=== PATIENT | male | born 1975 | race African-American/Black ===

== ENCOUNTER 2017-03-13 12:54 | Emergency (ER) | payer MEDICAID ==
[2017-03-13 12:59] VITALS: BP 147/81
[2017-03-13] MEDS ORDERED: OXYCODONE-ACETAMINOPHEN 5-325 MG TABLET PO ONE (13:45)
[2017-03-13] MEDS ORDERED: PREDNISONE 20 MG TABLET PO ONE (13:45)
--- NOTE | 2017-03-13 13:50 | ER Document Report ---
HPI - HPI Patient complains to provider of: neck pain Onset: Other - 2 days Onset/Duration: Persistent Quality of pain: Sharp Pain Level: 5 Context: Patient reports a history of chronic cervical radiculopathy. Patient states that he has had a flareup of his chronic right-sided neck pain that goes into the right shoulder area for the past 2 days. Patient denies any new injury. Patient states pain is typical of flare up states that in the past. 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 Associated Symptoms: Other - right side neck pain. denies: Fever, Headache Exacerbated by: Movement Relieved by: Denies Similar symptoms previously: Yes Recently seen / treated by doctor: No - ROS ROS below otherwise negative: Yes Systems Reviewed and Negative: Yes All other systems reviewed and negative - CONSTITUTIONAL Constitutional: DENIES: Fever - NEURO Neurology: DENIES: Headache, Weakness - GASTROINTESTINAL Gastrointestinal: DENIES: Nausea - MUSCULOSKELETAL Musculoskeletal: REPORTS: Back Pain, Neck Pain. DENIES: Extremity pain - DERM Skin Color: Normal Skin Problems: None Past Medical History - General Information source: Patient - Social History Smoking Status: Never Smoker Frequency of alcohol use: None Drug Abuse: None Occupation: [employer] Lives with: Family Family History: Reviewed & Not Pertinent Patient has suicidal ideation: No Patient has homicidal ideation: No - Past Medical History Cardiac Medical History: Reports: Hx Heart Attack - 2010, Hx Hypercholesterolemia, Hx Hypertension Renal/ Medical History: Denies: Hx Peritoneal Dialysis Musculoskeltal Medical History: Reports Hx Arthritis, Reports Other - herniated disc in cervical spine Past Surgical History: Reports: Hx Cardiac Catheterization, Hx Orthopedic Surgery - RIGHT WRIST - Immunizations Immunizations up to date: Yes Hx Diphtheria, Pertussis, Tetanus Vaccination: Yes Vertical Provider Document - CONSTITUTIONAL Agree With Documented VS: Yes Exam Limitations: No Limitations General Appearance: WD/WN, No Apparent Distress - INFECTION CONTROL TRAVEL OUTSIDE OF THE [place] IN LAST 30 DAYS: No - HEENT HEENT: Atraumatic, Normocephalic - NECK Neck: Supple, Other - Patient with right posterior paracervical tenderness, no midline tenderness, step-off or deformity. Patient with tenderness overlying the right trapezius muscle.. negative: Lymphadenopathy-Left, Lymphadenopathy- Right - RESPIRATORY Respiratory: Breath Sounds Normal, No Respiratory Distress O2 Sat by Pulse Oximetry: 97 - CARDIOVASCULAR Cardiovascular: Regular Rate, Regular Rhythm, No Murmur - MUSCULOSKELETAL/EXTREMETIES Musculoskeletal/Extremeties: IDALIA PACE - NEURO Level of Consciousness: Awake, Alert, Appropriate Motor/Sensory: No Motor Deficit, No Sensory Deficit Notes: pt With normal strength and muscle tone to bilateral upper extremities - DERM Integumentary: Warm, Dry, No Rash Course - Re-evaluation Re-evalutation: 03/13/17 13:46 The patient has been informed that they may have pre-hypertension or hypertension based on a blood pressure reading in the emergency department. I recommend that patient call the primary care provider listed on their discharge instructions or a physician of their choice by this week to arrange follow-up for further evaluation of possible pre-hypertension her hypertension. - Vital Signs Vital signs: Temp Pulse Resp BP Pulse Ox 98.4 F 62 16 147/81 H 97 03/13/17 12:56 03/13/17 12:56 03/13/17 12:56 03/13/17 12:56 03/13/17 12:56 Discharge - Discharge Clinical Impression: Elevated blood pressure reading, Cervical radicular pain Condition: Stable Disposition: HOME, SELF-CARE Instructions: Radiculopathy ([facility]), Oral Narcotic Medication ([facility]), Steroid Medication Additional Instructions: Return immediately for any new or worsening symptoms Followup with your primary care provider, call tomorrow to make a followup appointment Your blood pressure was mildly elevated today, recheck with your primary doctor to have this reevaluated Prescriptions: Oxycodone HCl/Acetaminophen [Percocet 5-325 mg Tablet] 1 - 2 tab PO ASDIR PRN # 15 tablet PRN Reason: Prednisone [Deltasone 20 mg Tablet] 3 tab PO DAILY 5 Days Forms: Elevated Blood Pressure Referrals: BENJI MIRANDA MD [Primary Care Provider] - Follow up tomorrow
== END 2017-03-13 14:23 | disposition home or self-care (01) ==
LOC: ER 12:54
DX: M54.12 Radiculopathy, cervical region (principal); M54.2 Cervicalgia; G89.29 Other chronic pain; I25.2 Old myocardial infarction; I10 Essential (primary) hypertension; M54.9 Dorsalgia, unspecified
CPT/HCPCS: 99283; J7512

== ENCOUNTER 2017-03-23 15:58 | Emergency (ER) | payer MEDICAID ==
--- NOTE | 2017-03-23 17:11 | ER Document Report ---
HPI - HPI Patient complains to provider of: neck pain Pain Level: 5 Context: pt is 41 yo male with hx/o chronic cervical radiculopathy presents to ED today c /o increased pain x several days. no new injury, typical flare for patient. 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 Associated Symptoms: None Exacerbated by: Movement Relieved by: Denies - ROS Systems Reviewed and Negative: Yes All other systems reviewed and negative - CARDIOVASCULAR Cardiovascular: DENIES: Chest pain - DERM Skin Color: Normal Past Medical History - General Information source: Patient - Social History Smoking Status: Unknown if Ever Smoked Chew tobacco use (# tins/day): No Frequency of alcohol use: None Drug Abuse: None Lives with: Family Family History: Reviewed & Not Pertinent Patient has suicidal ideation: No Patient has homicidal ideation: No - Past Medical History Cardiac Medical History: Reports: Hx Heart Attack - 2010, Hx Hypercholesterolemia, Hx Hypertension Renal/ Medical History: Denies: Hx Peritoneal Dialysis Musculoskeltal Medical History: Reports Hx Arthritis Past Surgical History: Reports: Hx Cardiac Catheterization, Hx Orthopedic Surgery - RIGHT WRIST - Immunizations Immunizations up to date: Yes Hx Diphtheria, Pertussis, Tetanus Vaccination: Yes Vertical Provider Document - CONSTITUTIONAL Agree With Documented VS: Yes General Appearance: WD/WN - INFECTION CONTROL TRAVEL OUTSIDE OF THE [place] IN LAST 30 DAYS: No - HEENT HEENT: Atraumatic, PERRLA - NECK Neck: Other - + tenderness over C5-6 area. + radicular pain to right elbow - RESPIRATORY Respiratory: Breath Sounds Normal, No Respiratory Distress O2 Sat by Pulse Oximetry: 94 - CARDIOVASCULAR Cardiovascular: Regular Rate, Regular Rhythm - NEURO Level of Consciousness: Awake, Alert Course - Vital Signs Vital signs: Temp Pulse Resp BP Pulse Ox 98.3 F 85 18 141/78 H 94 03/23/17 16:16 03/23/17 16:16 03/23/17 16:16 03/23/17 16:16 03/23/17 16:16 Discharge - Discharge Clinical Impression: Cervical radicular pain, Elevated blood pressure reading Condition: Stable Disposition: HOME, SELF-CARE Instructions: Oral Narcotic Medication ([facility]), Steroid Medication Additional Instructions: Take medications as prescribed Follow up with your primary care provider for further evaluation and treatment Your blood pressure is elevated Please keep blood pressure diary and follow up with your primary care Prescriptions: Oxycodone HCl/Acetaminophen [Percocet 5-325 mg Tablet] 1 - 2 tab PO ASDIR PRN # 25 tablet PRN Reason: Prednisone [Deltasone 10 mg Tablet] 10 mg PO ASDIR PRN #21 tablet PRN Reason: Forms: Elevated Blood Pressure
[2017-03-23 17:28] VITALS: BP 126/80
== END 2017-03-23 17:23 | disposition home or self-care (01) ==
LOC: ER 15:58
DX: M54.12 Radiculopathy, cervical region (principal); R03.0 Elevated blood-pressure reading, without diagnosis of hypertension; G89.29 Other chronic pain; I25.2 Old myocardial infarction; E78.00 Pure hypercholesterolemia, unspecified
CPT/HCPCS: 99283

== ENCOUNTER 2017-07-10 12:02 | Emergency (ER) | payer MEDICAID ==
[2017-07-10 12:08] VITALS: BP 138/83
== END 2017-07-10 14:01 | disposition left against medical advice (07) ==
LOC: ER 12:02
DX: Z53.21 Procedure and treatment not carried out due to patient leaving prior to being seen by health care provider (principal)

== ENCOUNTER 2017-07-25 17:29 | Emergency (ER) | payer MEDICAID ==
[2017-07-25] MEDS ORDERED: DEXAMETHASONE SOD PHOS INJ 10 MG/1 ML VIAL IM ONE (18:33)
[2017-07-25] MEDS ORDERED: KETOROLAC TROMETHAMINE 60 MG/2 ML SDV IM ONE (18:33)
--- NOTE | 2017-07-25 18:46 | ER Document Report ---
ED Neck/Back Problem - General Chief Complaint: Neck Pain >24hrs old Stated Complaint: NECK/SHOULDER PAIN Time Seen by Provider: 07/25/17 17:58 Mode of Arrival: Ambulatory Information source: Patient Notes: 42-year-old male presents to ED for complaint of chronic neck and shoulder pain. He states that he has an old injury and has been told that he needed neck surgery for bulging disc but has not been able to afford to take off to have the surgery done. He states that he has been in here several times for this pain. He states he has a primary doctor but he has no insurance and now he has gotten Medicaid but still cannot afford to take off work. TRAVEL OUTSIDE OF THE [place] IN LAST 30 DAYS: No - HPI Patient complains to provider of: Pain, Neck, Upper back Onset: Other - Chronic with increase in pain on Tuesday Onset: Chronic Timing: Still present, Worse Quality of pain: Achy, Sharp Severity: Moderate Pain Level: 4 Recent injury: No Associated symptoms: Like prior neck/back pain, Numbness/tingling, Radiation to arm, Radiation to chest, Upper back pain. denies: Radiation to leg, Sensory loss, Unable to urinate Exacerbated by: Movement of neck Relieved by: Remaining still Similar symptoms previously: Yes Recently seen / treated by doctor: No - Related Data Allergies/Adverse Reactions: No Known Drug Allergies Allergy (Verified 07/25/17 17:43) Past Medical History - General Information source: Patient - Social History Smoking Status: Former Smoker Cigarette use (# per day): No Chew tobacco use (# tins/day): No Smoking Education Provided: No Frequency of alcohol use: None Drug Abuse: None Lives with: Family Family History: Arthritis, CAD, CVA, DM, Hyperlipidemia, Hypertension, Malignancy, Thyroid Disfunction Patient has suicidal ideation: No Patient has homicidal ideation: No - Past Medical History Cardiac Medical History: Reports: Hx Heart Attack - 2011, Hx Hypercholesterolemia, Hx Hypertension Pulmonary Medical History: Reports: None Neurological Medical History: Reports: None Endocrine Medical History: Reports: None Renal/ Medical History: Reports: None Malignancy Medical History: Reports None GI Medical History: Reports: None Musculoskeltal Medical History: Reports Hx Arthritis, Reports Hx Musculoskeletal Deformity, Reports Hx Musculoskeletal Trauma Skin Medical History: Reports None Psychiatric Medical History: Reports: None Traumatic Medical History: Reports: None Infectious Medical History: Reports: None Past Surgical History: Reports: Hx Cardiac Catheterization, Hx Orthopedic Surgery - RIGHT WRIST - Immunizations Immunizations up to date: Yes Hx Diphtheria, Pertussis, Tetanus Vaccination: Yes Review of Systems - Review of Systems Constitutional: No symptoms reported EENT: No symptoms reported Cardiovascular: No symptoms reported Respiratory: No symptoms reported Gastrointestinal: No symptoms reported Genitourinary: No symptoms reported Male Genitourinary: No symptoms reported Musculoskeletal: No symptoms reported Skin: No symptoms reported Hematologic/Lymphatic: No symptoms reported Neurological/Psychological: No symptoms reported -: Yes All other systems reviewed and negative Physical Exam - Vital signs Vitals: Temp Pulse Resp BP Pulse Ox 98.9 F 65 18 143/83 H 98 07/25/17 17:43 07/25/17 17:43 07/25/17 17:43 07/25/17 17:43 07/25/17 17:43 Interpretation: Normal - General General appearance: Appears well, Alert - HEENT Head: Normocephalic, Atraumatic Eyes: Normal Pupils: PERRL - Respiratory Respiratory status: No respiratory distress Chest status: Nontender Breath sounds: Normal Chest palpation: Normal - Cardiovascular Rhythm: Regular Heart sounds: Normal auscultation Murmur: No - Abdominal Inspection: Normal Distension: No distension Bowel sounds: Normal Tenderness: Nontender Organomegaly: No organomegaly - Back Back: Normal, Tender, Vertebra tenderness. No: Deformity/step-off, CVA tenderness, Scars, Scoliosis, Wounds - Extremities General upper extremity: Normal inspection, Nontender, Normal color, Normal ROM , Normal temperature General lower extremity: Normal inspection, Nontender, Normal color, Normal ROM , Normal temperature, Normal weight bearing. 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 He has had MRIs in the past and is been in instructed to have neck surgery which he refused due to him on ability to take off work with the surgery. Patient states that a lot of the times his neck is were it not painful but every once in a while he will do some. Mom picks him up and the pain will get severe. He states that this time it became severe on Tuesday and is been trying to wait until he can follow-up with his doctor. He states his primary doctor will not give him narcotics and the neck specialist will not see him until he agrees to do the surgery that he is needs. He states that he will call his primary doctor tomorrow to discuss pain management. I have informed him that the emergency room does not usually treat chronic pain with narcotics but I will give him a short prescription of Percocet 10 tablets 1 every 6 hours but that he needs to get a referral to pain management as we cannot continue to give him pain medicine. He was treated with Decadron and Toradol in the emergency room IM and instructed on use of ice and warm packs to help with his pain. - Vital Signs Vital signs: Temp Pulse Resp BP Pulse Ox 98.5 F 73 16 143/87 H 100 07/25/17 19:05 07/25/17 19:05 07/25/17 19:05 07/25/17 19:05 07/25/17 19:05 Discharge - Discharge Clinical Impression: Chronic neck and back pain Condition: Stable Disposition: HOME, SELF-CARE Additional Instructions: Chronic Back Pain Chronic back pain (pain persisting longer than three months) is a common problem. A medical evaluation can look for herniated disc, arthritis, osteoporosis, tumors, and infections. But at least half the time, there's no obvious treatable cause. Anxiety and depression tend to worsen back pain. Ibuprofen or other anti-inflammatory medicine can help. A heating pad, used for 15-20 minutes at a time, can ease pain. For this type of back pain, narcotic medicines should be avoided. Muscle relaxers are rarely helpful unless you're having spasms. Activity is important. Find an aerobic exercise program that your back can tolerate. Too much rest makes back pain worse. Specific back exercises are usually prescribed to strengthen the back and abdominal muscles. Often, a physical therapist can help. Avoid heavy lifting, working while bent over, or standing with both knees straight. Most back pain patients do better with a firm mattress. If new symptoms of a "herniated disc" (radiation of pain, numbness, or tingling down the back of the leg or weakness in the leg) occur, you should be re-examined. Chronic Pain Control Stress, inactivity, and depression make pain more severe regardless of the cause of the pain. Stress and poor physical condition can cause pain such as headaches and backache. Relaxation: Rest in a quiet place with your eyes closed for 20 minutes twice daily. Concentrate on a pleasant image, or simply "feel" your breathing. Clear your mind. Stress management: Deal with your "stressors." Either take action, or eliminate the stressor from your life. Don't let things hang over you. Accept those things you can't change. Nutrition: Eat small, balanced meals -- don't skip, don't overeat. Meals should be high-carbohydrate, low-sugar, low-fat. Exercise: Exercise helps painful conditions and eases stress. Get 30 minutes of moderate exercise, five days a week. Do an activity that does not flare your pain. Precautions: Pain which continues to disrupt daily activities, or which changes in nature, requires a medical evaluation. Pain Clinic referral is available. We do not manage chronic pain in the Emergency Department. We will try to appropriately help you through an acute flare of your chronic painful condition , but for on-going chronic pain that does not improve, you will need to see your private doctor or painter helper spray. We do not provide repeated medication management of chronic painful conditions. If you wish, we can provide the name of local pain management physicians. Toradol Injection You have been given an injection of ketorolac tromethamine (Toradol). This is an excellent, safe drug for pain control. It also has potent antiinflammatory action. You should have significant pain relief within about one hour. Toradol is not addicting and is non-sedating. It does not interfere with driving or work. Call or return if you develop itching, hives, shortness of breath, or rash. STEROID MEDICATION: You have been given an injection of medicine of the cortisone/steroid class. This medication is used to control inflammation or allergy. It is often continued as a pill for a short period of time, until the acute process subsides. There are usually no side effects from short-term use of cortisone-like medications. Some persons feel an increased sense of well-being and are not sleepy at bedtime. Long-term use of cortisone medications is best avoided, unless required for a severe condition. If your condition does not remit, or relapses after the course of corticosteroid medication, you should consult your physician. ICE PACKS: Apply ice packs frequently against the painful area. Many different schedules are recommended, such as "20 minutes on, 20 minutes off" or "one hour ice, two hours rest." If you need to work, you may need to go longer between ice treatments. You should plan to have the area ice packed AT LEAST one fourth of the time. The ice should be applied over the wrap, tape, or splint, or over a layer of cloth -- not directly against the skin. Some ice bags have a built-in cloth and can be put directly on the skin. WARM PACKS: After approximately two days, apply gentle heat (such as a heating pad or hot water bottle) for about 20 to 30 minutes about every two hours -- at least four times daily. Warmth and elevation will help you make a more rapid recovery , and will ease the pain considerably. Do not use HOT heat, and never apply heat for longer than 30 minutes. The continuous heat can invisibly damage skin and muscles -- even when no burn is seen on the surface. Damaged muscles can make you MORE sore. ORAL NARCOTIC MEDICATION: You have been given a prescription for pain control. This medication is a narcotic. It's best taken with food, as nausea can result if taken on an empty stomach. Don't operate machinery or drive within six hours of taking this medication. Do not combine this medicine with alcohol, or with any medication which can cause sedation (such as cold tablets or sleeping pills) unless you get permission from the physician. Narcotics tend to cause constipation. If possible, drink plenty of fluids and eat a diet high in fiber and fruits. FOLLOW-UP CARE: If you have been referred to a physician for follow-up care, call the physician s office for an appointment as you were instructed or within the next two days. If you experience worsening or a significant change in your symptoms, notify the physician immediately or return to the Emergency Department at any time for re-evaluation. You need to follow-up with your primary doctor and get a referral to pain management until you can get definitive treatment to your neck. Prescriptions: Oxycodone HCl/Acetaminophen [Percocet 5-325 mg Tablet] 1 tab PO Q6HP PRN #10 tablet PRN Reason: Forms: Elevated Blood Pressure Referrals: [facility] [Provider Group] - Follow up as needed
[2017-07-25 19:06] VITALS: BP 143/87
== END 2017-07-25 19:05 | disposition home or self-care (01) ==
LOC: ER 17:29
DX: G89.29 Other chronic pain (principal); M54.2 Cervicalgia; M25.519 Pain in unspecified shoulder; I10 Essential (primary) hypertension; I25.2 Old myocardial infarction; Z87.891 Personal history of nicotine dependence
CPT/HCPCS: 99283; 96372; J1885; J1100

== ENCOUNTER 2017-08-18 15:47 | Emergency (ER) | payer MEDICAID ==
--- NOTE | 2017-08-18 16:32 | ER Document Report ---
ED General - General TRAVEL OUTSIDE OF THE [place] IN LAST 30 DAYS: No - General Chief Complaint: Abscess Stated Complaint: BREAST PAIN Time Seen by Provider: 08/18/17 16:05 Notes: Patient is a 32-year-old male presents emergency department complaining of right areolar tenderness and swelling since Tuesday. Patient states that it is gradual onset increased in size and tenderness. He denies any skin erythema , drainage. States this is the first time ever having anything like this. States he does not shave. And he denies any family history of breast cancer in males and denies growing up working on [employer]. Otherwise states he is healthy denies any other medical problems. Denies any fevers or chills. States he is following up with primary care on Tuesday. (HERNANDEZ VILLALBA) - Related Data Allergies/Adverse Reactions: No Known Drug Allergies Allergy (Verified 08/18/17 15:50) Past Medical History - Social History Smoking Status: Current Every Day Smoker Family History: Arthritis, CAD, CVA, DM, Hyperlipidemia, Hypertension, Malignancy, Thyroid Disfunction Patient has suicidal ideation: No Patient has homicidal ideation: No - Past Medical History Cardiac Medical History: Reports: Hx Heart Attack - 2010, Hx Hypercholesterolemia, Hx Hypertension Renal/ Medical History: Denies: Hx Peritoneal Dialysis Musculoskeltal Medical History: Reports Hx Arthritis, Reports Hx Musculoskeletal Deformity, Reports Hx Musculoskeletal Trauma Past Surgical History: Reports: Hx Cardiac Catheterization, Hx Orthopedic Surgery - RIGHT WRIST - Immunizations Immunizations up to date: Yes Hx Diphtheria, Pertussis, Tetanus Vaccination: Yes Review of Systems - Review of Systems Constitutional: No symptoms reported Skin: See HPI -: Yes All other systems reviewed and negative Physical Exam - Vital signs Vitals: Temp Pulse Resp BP Pulse Ox 99.2 F 65 18 131/78 H 98 08/18/17 15:50 08/18/17 15:50 08/18/17 15:50 08/18/17 15:50 08/18/17 15:50 - Notes Notes: PHYSICAL EXAM GENERAL: Alert, interacts well. LUNGS: Clear to auscultation bilaterally, no wheezes, rales, or rhonchi. No respiratory distress. HEART: Regular rate and rhythm. No murmurs, gallops, or rubs. ABDOMEN: Soft, nondistended, nontender. No guarding, rebound, or rigidity.. Bowel sounds present in all 4 quadrants. NEUROLOGICAL: Alert and oriented x4. Normal speech. PSYCH: Normal affect, normal mood. SKIN: Warm, dry, normal turgor. Right areola at approximately between 10 and 11 :00 is a 1 cm tender and swollen area within the dermis with no overlying erythema or induration. (HERNANDEZ VILLALBA) Course - Re-evaluation Re-evalutation: 08/18/17 16:34 Ultrasound performed at the bedside shows a small collection of fluid within a 1 cm swollen area. At this time will treat with warm compresses and antibiotics and have patient follow-up with his primary care on Tuesday. Discussed with patient low suspicion for any malignancy but it is important to follow-up with primary care for complete evaluation. Patient agrees with plan and is stable for discharge home. (HERNANDEZ VILLALBA) 08/18/17 20:17 I examined the skin around the right nipple with the physician bioinformatics assistant. A bedside ultrasound was used with the vascular probe to see how much fluid was present. There was a 0.2 x 0.4 cm area approximately half centimeter deep at the 10 o'clock position on the right areola. There does not appear to be enough fluid there to do an incision and drainage. There is some redness but no significant lymphangitic streaking. There are no palpable right axillary lymphadenopathy. At this time will recommend warm packs to the right breast with Keflex or suitable antibiotic. Patient instructed to return if symptoms are not getting better in 48 hours or for any other symptoms. (MEG BENJAMIN) - Vital Signs Vital signs: Temp Pulse Resp BP Pulse Ox 97.9 F 70 18 120/81 97 08/18/17 17:09 08/18/17 17:09 08/18/17 17:09 08/18/17 17:09 08/18/17 17:09 Discharge - Discharge Clinical Impression: Cellulitis of breast of male Condition: Good Disposition: HOME, SELF-CARE Instructions: Cellulitis ([facility]), Cephalexin ([facility]) Additional Instructions: Warm compresses as tolerated and follow up with primary care on Tuesday Prescriptions: Cephalexin Monohydrate [Keflex 500 mg Capsule] 500 mg PO Q6H 5 Days capsule Cephalexin Monohydrate [Keflex 500 mg Capsule] 500 mg PO Q6H 5 Days capsule Referrals: [facility] [Provider Group] - 08/22/17
[2017-08-18] MEDS ORDERED: CEPHALEXIN 500 MG CAPSULE PO ONE (16:34)
[2017-08-18] MEDS ORDERED: IBUPROFEN 600 MG TABLET PO ONE ×2 (16:34→16:45)
[2017-08-18 17:12] VITALS: BP 120/81
== END 2017-08-18 17:10 | disposition home or self-care (01) ==
LOC: ER 15:47
DX: N61.0 Mastitis without abscess (principal); N61.1 Abscess of the breast and nipple; F17.200 Nicotine dependence, unspecified, uncomplicated
CPT/HCPCS: 99282; J3490

== ENCOUNTER 2018-08-07 12:49 | Emergency (ER) | payer SELFPAY ==
[2018-08-07 13:14] VITALS: BP 140/88
[2018-08-07] MEDS ORDERED: CYCLOBENZAPRINE HCL 10 MG TABLET PO ONE (13:34)
[2018-08-07] MEDS ORDERED: DEXAMETHASONE SOD PHOS INJ 10 MG/1 ML VIAL IM ONE (13:34)
[2018-08-07] MEDS ORDERED: LIDOCAINE 5% (700 MG) TRANSDERMAL ADH..PATCH TP ONE (13:34)
[2018-08-07] MEDS ORDERED: KETOROLAC TROMETHAMINE 60 MG/2 ML SDV IM ONE (13:34)
--- NOTE | 2018-08-07 13:34 | ER Document Report ---
HPI - HPI Pain Level: 4 - NEURO Neurology: DENIES: Dizzinesss / Vertigo Past Medical History - Social History Smoking Status: Never Smoker Family History: Arthritis, CAD, CVA, DM, Hyperlipidemia, Hypertension, Malignancy, Thyroid Disfunction Patient has suicidal ideation: No Patient has homicidal ideation: No - Past Medical History Cardiac Medical History: Reports: Hx Heart Attack - 2011, Hx Hypercholesterolemia, Hx Hypertension Renal/ Medical History: Denies: Hx Peritoneal Dialysis Musculoskeletal Medical History: Reports Hx Arthritis, Reports Hx Musculoskeletal Deformity, Reports Hx Musculoskeletal Trauma Past Surgical History: Reports: Hx Cardiac Catheterization, Hx Orthopedic Surgery - RIGHT WRIST - Immunizations Immunizations up to date: Yes Hx Diphtheria, Pertussis, Tetanus Vaccination: Yes Vertical Provider Document - INFECTION CONTROL TRAVEL OUTSIDE OF THE [place] IN LAST 30 DAYS: No Course - Vital Signs Vital signs: Temp Pulse Resp BP Pulse Ox 98.4 F 57 L 16 140/88 H 98 08/07/18 13:13 08/07/18 13:13 08/07/18 13:13 08/07/18 13:13 08/07/18 13:13 Discharge - Discharge Clinical Impression: Cervical strain Qualifiers: Encounter type: sequela Qualified Code(s): S16.1XXS - Strain of muscle, fascia and tendon at neck level, sequela Condition: Stable Disposition: HOME, SELF-CARE Additional Instructions: Neck Injury (Cervical Strain) You have a neck strain. This is an injury to the muscles and ligaments in the neck. There is no evidence of a fracture of the neck bones. Also, no injury to the spinal cord or nerve roots was detected. Usually, stiffness and pain INCREASE for the first 24-48 hours. The pain will gradually resolve and the neck will become more mobile. Most patients are back at work or school within a few days. Typically, complete healing takes about two or three weeks. The usual initial treatment is rest and cold packs. A neck collar may be placed to keep the muscles of the neck at rest. Antiinflammatory and muscle relaxing medication are often used to reduce the spasm and irritation. You should call the doctor, or go to the hospital, if you develop numbness or weakness in any extremity, problems with your bladder or bowel, or pain radiating down the arms. Please take medications as prescribed. Alternate ice and heat to the area. Continue to keep your follow-up appointments with your primary care as well as your specialist. Prescriptions: Cyclobenzaprine HCl [Flexeril 10 mg Tablet] 10 mg PO TIDP PRN #25 tab PRN Reason: Lidocaine [Lidoderm 5% (700 mg) Transdermal Patch] 1 patch TP DAILY #30 adh..patch Forms: Return to Work Referrals: DAVE CATHERINE MD [Primary Care Provider] - Follow up as needed
== END 2018-08-07 14:07 | disposition home or self-care (01) ==
LOC: ER 12:49
DX: S16.1XXS Strain of muscle, fascia and tendon at neck level, sequela (principal); M54.2 Cervicalgia; X58.XXXS Exposure to other specified factors, sequela
CPT/HCPCS: 99283; 96372; J1885; J1100

== ENCOUNTER 2018-10-02 09:43 | Emergency (ER) | payer SELFPAY ==
[2018-10-02] MEDS ORDERED: KETOROLAC TROMETHAMINE 60 MG/2 ML SDV IM ONE (12:01)
[2018-10-02] MEDS ORDERED: DEXAMETHASONE 4 MG TABLET PO ONE (12:01)
--- NOTE | 2018-10-02 12:02 | ER Document Report ---
ED Neck/Back Problem - General Chief Complaint: Low Back Pain Stated Complaint: BACK PAIN Time Seen by Provider: 10/02/18 11:31 Mode of Arrival: Ambulatory Information source: Patient Notes: 43-year-old male presented to ED for complaint of low back for 2 months or more. He states the pain continues and is getting worse in his lower back. He denies any injuries, any loss of control of bowel or bladder, no numbness or tingling, no saddle anesthesia, and no loss of control or sensation to the lower extremities. 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 He states he has been to [facility] but the provider there that he was seeing has gone. TRAVEL OUTSIDE OF THE [place] IN LAST 30 DAYS: No - HPI Patient complains to provider of: Pain, Lower back Onset: Other - For several months Onset: Chronic Timing: Still present Quality of pain: Sharp Severity: Severe Pain Level: 5 Context: Lifting, Turning Recent injury: No Associated symptoms: Like prior neck/back pain, Lower back pain. denies: Constipation, Fever, Incontinence, Motor loss, Numbness/tingling, Radiation to arm, Radiation to chest, Radiation to leg, Sensory loss, Sweaty, Unable to urinate Exacerbated by: Movement of trunk Relieved by: Nothing Similar symptoms previously: Yes Recently seen / treated by doctor: No - Related Data Allergies/Adverse Reactions: No Known Drug Allergies Allergy (Verified 10/02/18 09:47) Past Medical History - General Information source: Patient - Social History Smoking Status: Former Smoker Cigarette use (# per day): No Chew tobacco use (# tins/day): No Frequency of alcohol use: None Drug Abuse: None Occupation: [employer] Lives with: Family Family History: Arthritis, CAD, CVA, DM, Hyperlipidemia, Hypertension, Malignancy, Thyroid Disfunction Patient has suicidal ideation: No Patient has homicidal ideation: No - Past Medical History Cardiac Medical History: Reports: Hx Heart Attack - 2011, Hx Hypercholesterolemia, Hx Hypertension Pulmonary Medical History: Reports: None EENT Medical History: Reports: None Neurological Medical History: Reports: None Endocrine Medical History: Reports: None Renal/ Medical History: Reports: None Malignancy Medical History: Reports None GI Medical History: Reports: None Musculoskeletal Medical History: Reports Hx Arthritis, Reports Hx Musculoskeletal Deformity, Reports Hx Musculoskeletal Trauma Skin Medical History: Reports None Psychiatric Medical History: Reports: None Traumatic Medical History: Reports: Hx Fractures - Wrist Infectious Medical History: Reports: None Past Surgical History: Reports: Hx Cardiac Catheterization, Hx Orthopedic Surgery - RIGHT WRIST - Immunizations Immunizations up to date: Yes Hx Diphtheria, Pertussis, Tetanus Vaccination: Yes Review of Systems - Review of Systems Constitutional: No symptoms reported EENT: No symptoms reported Cardiovascular: No symptoms reported Respiratory: No symptoms reported Gastrointestinal: No symptoms reported Genitourinary: No symptoms reported Male Genitourinary: No symptoms reported Musculoskeletal: Back pain, Muscle pain, Muscle stiffness Skin: No symptoms reported Hematologic/Lymphatic: No symptoms reported Neurological/Psychological: No symptoms reported Physical Exam - Vital signs Vitals: Temp Pulse Resp BP Pulse Ox 98.5 F 76 18 133/82 H 97 10/02/18 09:56 10/02/18 09:56 10/02/18 09:56 10/02/18 09:56 10/02/18 09:56 Interpretation: Normal - General General appearance: Appears well, Alert - HEENT Head: Normocephalic, Atraumatic Eyes: Normal Pupils: PERRL - Respiratory Respiratory status: No respiratory distress Chest status: Nontender Breath sounds: Normal Chest palpation: Normal - Cardiovascular Rhythm: Regular Heart sounds: Normal auscultation Murmur: No - Abdominal Inspection: Normal Distension: No distension Bowel sounds: Normal Tenderness: Nontender Organomegaly: No organomegaly - Back Back: Normal, Tender. No: Vertebra tenderness Notes: Patient denies signs or symptoms of cauda equina, no loss of control of bowel bladder no saddle anesthesia no loss of control or sensation to lower legs. - Extremities General upper extremity: Normal inspection, Nontender, Normal color, Normal ROM, Normal temperature General lower extremity: Normal inspection, Nontender, Normal color, Normal ROM, Normal temperature, Normal weight bearing. No: Romero's sign - Neurological Neuro grossly intact: Yes Cognition: Normal Orientation: AAOx4 Julissa Coma Scale Eye Opening: Spontaneous Henderson Coma Scale Verbal: Oriented Henderson Coma Scale Motor: Obeys Commands Julissa Coma Scale Total: 15 Speech: Normal Motor strength normal: LUE, RUE, LLE, RLE Sensory: Normal - Psychological Associated symptoms: Normal affect, Normal mood - Skin Skin Temperature: Warm Skin Moisture: Dry Skin Color: Normal Course - Re-evaluation Re-evalutation: 10/02/18 21:52 After performing a Medical Screening Examination, I estimate there is LOW risk for EXPANDING OR RUPTURED ABDOMINAL AORTIC ANEURYSM, CAUDA EQUINA SYNDROME, EPIDURAL MASS LESION, or HERNIATED DISK CAUSING SEVERE SPINAL STENOSIS, thus I consider the discharge disposition reasonable. I have reevaluated this patient multiple times and no significant life threatening changes are noted. The pat iety and I have discussed the diagnosis and risks, and we agree with discharging home and close follow-up. We also discussed returning to the Emergency Department immediately if new or worsening symptoms occur with the understanding that symptoms and presentations can change. We have discussed the symptoms which are most concerning (e.g., saddle anesthesia, urinary or bowel incontinence or retention, changing or worsening pain) that necessitate immediate return. - Vital Signs Vital signs: Temp Pulse Resp BP Pulse Ox 97.8 F 67 18 137/81 H 98 10/02/18 12:40 10/02/18 12:40 10/02/18 09:56 10/02/18 12:40 10/02/18 12:40 - Diagnostic Test Radiology reviewed: Image reviewed, Reports reviewed Discharge - Discharge Clinical Impression: Chronic low back pain Qualifiers: Back pain laterality: bilateral Sciatica presence: without sciatica Qualified Code(s): M54.5 - Low back pain; G89.29 - Other chronic pain Condition: Stable Disposition: HOME, SELF-CARE Additional Instructions: LOW BACK PAIN: Three out of every four people will have an episode of disabling back pain during their lifetime. Most commonly the pain is due to straining of the muscles and ligaments in the low back. Usual treatment includes: (1) Rest on a firm surface. Avoid lying on your stomach. (2) Ice pack the painful area. After a few days, gentle heat may be used intermittently to relax the area, or ice packs can be continued. (3) Medication may be needed -- muscle relaxers and antiinflammatory medicines are commonly used. (4) As the back improves, exercises are prescribed to strengthen the back and abdominal muscles. Your doctor will advise you on the proper care for your back at each stage in your recovery. You may be better in a few days -- or healing may take several weeks. If new symptoms of a "herniated disc" (radiation of pain, numbness, or tingling down the back of the leg or weakness in the leg) occur, you should be re-examined. Further testing may be necessary. \\ MUSCLE RELAXERS: Muscle relaxing medications are usually prescribed for acute muscle spasm or injury to the neck and back. They are often combined with antiinflammatory pain medication for increased relief. You may stop the muscle relaxer when the pain and stiffness have improved. Start the medication again if spasms recur. Muscle relaxers may cause drowsiness, especially with the first dose. Do not operate machinery or drive while under the effects of the medication. Most muscle relaxers last up to 24 hours. Do not combine the medication with alcohol. ICE PACKS: Apply ice packs frequently against the painful area. Many different schedules are recommended, such as "20 minutes on, 20 minutes off" or "one hour ice, two hours rest." If you need to work, you may need to go longer between ice treatments. You should plan to have the area ice packed AT LEAST one fourth of the time. The ice should be applied over the wrap, tape, or splint, or over a layer of cloth -- not directly against the skin. Some ice bags have a built-in cloth and can be put directly on the skin. WARM PACKS: After approximately two days, apply gentle heat (such as a heating pad or hot water bottle) for about 20 to 30 minutes about every two hours -- at least four times daily. Warmth and elevation will help you make a more rapid recovery, and will ease the pain considerably. Do not use HOT heat, and never apply heat for longer than 30 minutes. The continuous heat can invisibly damage skin and muscles -- even when no burn is seen on the surface. Damaged muscles can make you MORE sore. Toradol Injection You have been given an injection of ketorolac tromethamine (Toradol). This is an excellent, safe drug for pain control. It also has potent antiinflammatory action. You should have significant pain relief within about one hour. Toradol is not addicting and is non-sedating. It does not interfere with driving or work. Call or return if you develop itching, hives, shortness of breath, or rash. STEROID MEDICATION: You have been given a medicine of the cortisone/steroid class. This medication is used to control inflammation or allergy. It is usually only given for a short period of time, until the acute process subsides. There are usually no side effects from short-term use of cortisone-like medications. Some persons feel an increased sense of well-being and are not sleepy at bedtime. Long-term use of cortisone medications is best avoided, unless required for a severe condition. If your condition does not remit, or relapses after the course of corticosteroid medication, you should consult your physician. Stretching Exercises for the Back The physician has recommended that you begin stretching exercises for your back. These are often used even while the back is painful. However, you should notify the physician if the activities seem to increase your pain. PELVIC TILT: Lie flat on your back with knees bent. Tighten your stomach and buttock muscles so it flattens your lower back against the floor. Hold 10 seconds. Repeat 10 times, twice daily. KNEE RAISE: Lying on the back with knees bent, raise one knee to your chest, then the other. Hold both knees against the chest 10 seconds, then lower one knee at a time. Repeat 10 times, twice daily. PARTIAL TRUNK RAISE: Lie face down, arms at your sides. Keeping your waist on the floor, use your arms raise your chest up. Support yourself on your elbows for 30 seconds. Repeat twice daily, increasing the time to two minutes as you recover. FOLLOW-UP CARE: If you have been referred to a physician for follow-up care, call the physicians office for an appointment as you were instructed or within the next two days. If you experience worsening or a significant change in your symptoms, notify the physician immediately or return to the Emergency Department at any time for re-evaluation. Prescriptions: Methocarbamol [Robaxin 500 mg Tablet] 500 mg PO BID #14 tablet Forms: Elevated Blood Pressure, Return to Work Referrals: [facility] [Provider Group] - Follow up as needed
[2018-10-02 12:41] VITALS: BP 137/81
== END 2018-10-02 12:44 | disposition home or self-care (01) ==
LOC: ER 09:43
DX: G89.29 Other chronic pain (principal); M54.5 Low back pain; M54.2 Cervicalgia; E78.00 Pure hypercholesterolemia, unspecified; I10 Essential (primary) hypertension; I25.2 Old myocardial infarction
CPT/HCPCS: 99283; 96372; J1885

== ENCOUNTER 2018-11-04 10:51 | Emergency (ER) | payer BC ==
[2018-11-04 11:15] VITALS: BP 144/90
[2018-11-04] MEDS ORDERED: LIDOCAINE 5% (700 MG) TRANSDERMAL ADH..PATCH TP ONE (11:35)
[2018-11-04] MEDS ORDERED: KETOROLAC TROMETHAMINE 60 MG/2 ML SDV IM ONE (11:35)
--- NOTE | 2018-11-04 11:39 | ER Document Report ---
HPI - HPI Time Seen by Provider: 11/04/18 11:27 Pain Level: 5 Notes: Patient is a 43-year-old male with a history of chronic neck issues who presents the emergency department complaining of acute on chronic low back pain over the last several days. Patient states that he has had the back pain similar to this intermittently over the last year and has been evaluated for it recently here in the ED. Patient states that the pain is to his lower midline and feels like a burning sensation that does not radiate. He is eating and drinking without any difficulties. He is urinating normally and having normal bowel movements. He has not had any injections or procedures to his lower back. Denies any IV drug abuse or spinal abscess history. Patient states that he has had an elevated PSA which is currently being investigated by his family doctor. No other concerns or complaints. Denies any headache, fever, head injury, neck pain, URI, sore throat, chest pain, palpitations, syncope, cough, shortness of breath, wheeze, dyspnea, abdominal pain, nausea/vomiting/diarrhea, urinary retention, dysuria, hematuria, loss of control of bowel or bladder, numbness/tingling, saddle anesthesia, muscle paralysis/weakness, or rash. - ROS Systems Reviewed and Negative: Yes All other systems reviewed and negative - REPRODUCTIVE Reproductive: DENIES: : Past Medical History - Social History Smoking Status: Current Every Day Smoker Family History: Arthritis, CAD, CVA, DM, Hyperlipidemia, Hypertension, Malignancy, Thyroid Disfunction Patient has suicidal ideation: No Patient has homicidal ideation: No - Past Medical History Cardiac Medical History: Reports: Hx Heart Attack - 2010, Hx Hypercholesterolemia, Hx Hypertension Renal/ Medical History: Denies: Hx Peritoneal Dialysis Musculoskeletal Medical History: Reports Hx Arthritis, Reports Hx Musculoskeletal Deformity, Reports Hx Musculoskeletal Trauma Traumatic Medical History: Reports: Hx Fractures - Wrist Past Surgical History: Reports: Hx Cardiac Catheterization, Hx Orthopedic Surgery - RIGHT WRIST - Immunizations Immunizations up to date: Yes Hx Diphtheria, Pertussis, Tetanus Vaccination: Yes Vertical Provider Document - CONSTITUTIONAL Agree With Documented VS: Yes Notes: PHYSICAL EXAMINATION: GENERAL: Well-appearing, well-nourished and in no acute distress. LUNGS: Breath sounds clear to auscultation bilaterally and equal. No wheezes rales or rhonchi. HEART: Regular rate and rhythm without murmurs, rubs, gallops. ABDOMEN: Soft, nontender, nondistended abdomen. No guarding, no rebound. No masses appreciated. Normal bowel sounds present. No CVA tenderness bilaterally. No pulsatile mass Musculoskeletal: LE's b/l: FROM to passive/active. Strength 5+/5. No deficits noted. No bony tenderness of extremities. Back: FROM to passive/active. Strength 5+/5. No stepoffs or deformities. No other bony tenderness, erythema, swelling, or ecchymosis. SLR negative b/l. + mild tenderness to the L-paraspinal mm b/l and midline near L2-3, mild. Mild spasming. No SI jt tenderness. No foot drop Extremities: No cyanosis, clubbing, or edema b/l. Peripheral pulses 2+. Capillary refill less than 2 seconds. NEUROLOGICAL: Normal speech, normal gait. Normal sensory, motor exams. Reflexes 2+ b/l. PSYCH: Normal mood, normal affect. SKIN: Warm, Dry, normal turgor, no rashes or lesions noted. - INFECTION CONTROL TRAVEL OUTSIDE OF THE [place] IN LAST 30 DAYS: No Course - Re-evaluation Re-evalutation: 11/04/18 12:17 Patient is an afebrile, well-hydrated, 43-year-old male who presents to the ED with acute on chronic low back pain. Vitals are acceptable. PE is otherwise unremarkable for any focal neurological deficits. X-ray was unremarkable for any acute pathology. Patient was given Toradol and Lidoderm patch. He has no significant tachycardia, tachypnea, or hypoxia. He is nontoxic-appearing and is tolerating p.o. without difficulties. There are no signs of infection. No other red flag symptoms noted. No other labs or imaging warranted at this time based on H&P. Low suspicion for any meningitis, fracture, expanding/ruptured AAA, cauda equina syndrome, epidural mass lesion/abscess, herniated disc causing severe spinal stenosis, or other systemic infection at this time. Patient is aware that his condition can change from initial presentation and that he needs monitor symptoms closely for any acute changes. I will send him home with a prescription for lidoderm patches and naproxen. Conservative measures otherwise for symptoms. Recheck with your PCM in 3-5 days. Consider consult with orthopedic/physical therapy. Return to the ED with any worsening/concerning symptoms otherwise as reviewed discharge. Patient is in agreement. - Vital Signs Vital signs: Temp Pulse Resp BP Pulse Ox 98.4 F 67 16 144/90 H 97 11/04/18 11:13 11/04/18 11:13 11/04/18 11:13 11/04/18 11:13 11/04/18 11:13 Discharge - Discharge Clinical Impression: Low back pain Qualifiers: Chronicity: acute Back pain laterality: bilateral Sciatica presence: without sciatica Qualified Code(s): M54.5 - Low back pain Condition: Stable Disposition: HOME, SELF-CARE Instructions: Low Back Pain ([facility]), Stretching Exercises for the Back ([facility]) Additional Instructions: Rest, Ice, Compression, Elevation Tylenol/ibuprofen as needed Light stretches daily Strength exercises as able Moist heat and massage may help F/u with your PCP in 3-5 days for a recheck Consider consult(s) with Orthopedics/physical therapy for ongoing/worsening symptoms Return to the ED with any worsening symptoms and/or development of fever, headache, chest pain, palpitations, syncope, shortness of breath, trouble breathing, abdominal pain, n/v/d, blood in stool/urine, loss of control of bowel/bladder, urinary retention, muscle weakness/paralysis, saddle anesthesia, numbness/tingling, or other worsening symptoms that are concerning to you. Prescriptions: Lidocaine [Lidoderm 5% (700 mg) Transdermal Patch] 1 patch TP DAILY #10 adh..patch Naproxen 500 mg PO BID #20 tablet Forms: Elevated Blood Pressure, Smoking Cessation Education Referrals: BENJI MIRANDA MD [Primary Care Provider] - Follow up in 3-5 days [facility] [Provider Group] - Follow up as needed
--- NOTE | 2018-11-04 12:12 | RADIOLOGY REPORT (SQ) ---
EXAM DESCRIPTION: L SPINE WHOLE COMPLETED DATE/TIME: 11/04/2018 11:48 am REASON FOR STUDY: low back pain COMPARISON: None. NUMBER OF VIEWS: Five views including obliques. TECHNIQUE: AP, lateral, oblique, and sacral radiographic images acquired of the lumbar spine. LIMITATIONS: None. FINDINGS: MINERALIZATION: Normal. SEGMENTATION: Normal. No transitional anatomy. ALIGNMENT: Normal. VERTEBRAE: Maintained height. No fracture or worrisome bone lesion. DISCS: Preserved height. No significant osteophytes or end plate irregularity. POSTERIOR ELEMENTS: Pedicles and facets are intact. No pars defect or posterior arch defects. HARDWARE: None in the spine. PARASPINAL SOFT TISSUES: Normal. PELVIS: Intact as visualized. No fractures or worrisome bone lesions. SI joints intact. OTHER: No other significant finding. IMPRESSION: NORMAL 5 VIEW LUMBAR SPINE. TECHNICAL DOCUMENTATION: JOB ID: [id number] [place]-72 2010 [employer]- All Rights Reserved Reading location - IP/workstation name: [email or web address]
== END 2018-11-04 12:20 | disposition home or self-care (01) ==
LOC: ER 10:51
DX: M54.5 Low back pain (principal); G89.29 Other chronic pain; F17.200 Nicotine dependence, unspecified, uncomplicated; E78.00 Pure hypercholesterolemia, unspecified; I10 Essential (primary) hypertension; I25.2 Old myocardial infarction
CPT/HCPCS: 99283; 96372; 72110; J1885

== ENCOUNTER 2018-11-09 14:50 | Emergency (ER) | payer BC ==
[2018-11-09] MEDS ORDERED: DEXAMETHASONE SOD PHOS INJ 10 MG/1 ML VIAL IM ONE (15:16)
[2018-11-09] MEDS ORDERED: KETOROLAC TROMETHAMINE 60 MG/2 ML SDV IM ONE (15:16)
--- NOTE | 2018-11-09 15:19 | ER Document Report ---
HPI - HPI Time Seen by Provider: 11/09/18 15:03 Pain Level: 5 Notes: Patient is a 43-year-old male who presents to the emergency department with acute on chronic low back pain. Patient reports he has had low back pain for approximately 2 weeks now. He states that it waxes and wanes. He states he has tried taking naproxen and Lidoderm patches which were prescribed here at [facility] recently. He states this did not help. Patient reports that they gave him a shot of Toradol previously that significantly helped his pain. Patient reports the pain is constant aching pain, denies any specific injury. He denies any bowel incontinence, reports he is able to urinate without difficulty and denies any saddle anesthesia. 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 - REPRODUCTIVE Reproductive: DENIES: : Past Medical History - General Information source: Patient - Social History Smoking Status: Never Smoker Frequency of alcohol use: None Drug Abuse: None Family History: Arthritis, CAD, CVA, DM, Hyperlipidemia, Hypertension, Malignancy, Thyroid Disfunction - Past Medical History Cardiac Medical History: Reports: Hx Heart Attack - 2010, Hx Hypercho lesterolemia, Hx Hypertension Renal/ Medical History: Reports: Hx Peritoneal Dialysis Musculoskeletal Medical History: Reports Hx Arthritis, Reports Hx Musculoskeletal Deformity, Reports Hx Musculoskeletal Trauma Traumatic Medical History: Reports: Hx Fractures - Wrist Past Surgical History: Reports: Hx Cardiac Catheterization, Hx Orthopedic Surgery - RIGHT WRIST - Immunizations Immunizations up to date: Yes Hx Diphtheria, Pertussis, Tetanus Vaccination: Yes Vertical Provider Document - CONSTITUTIONAL Notes: PHYSICAL EXAMINATION: GENERAL: Well-appearing, well-nourished and in no acute distress. HEAD: Atraumatic, normocephalic. EYES: Pupils equal round extraocular movements intact, conjunctiva are normal. ENT: Nares patent NECK: Normal range of motion LUNGS: No respiratory distress Musculoskeletal: Normal range of motion NEUROLOGICAL: Normal speech, normal gait. PSYCH: Normal mood, normal affect. SKIN: Warm, Dry, normal turgor, no rashes or lesions noted. - INFECTION CONTROL TRAVEL OUTSIDE OF THE [place] IN LAST 30 DAYS: No Course - Re-evaluation Re-evalutation: Examination most consistent with musculoskeletal strain. Patient does not have any red flag symptoms such as bowel incontinence, urinary retention or saddle anesthesia. Patient will be discharged home in stable condition. Discharge - Discharge Clinical Impression: Back pain Qualifiers: Back pain location: low back pain Chronicity: chronic Back pain laterality: bilateral Sciatica presence: without sciatica Qualified Code(s): M54.5 - Low back pain Condition: Stable Disposition: HOME, SELF-CARE Additional Instructions: You have been seen in the Emergency Department (ED) today for back pain. Your workup and exam have not shown any acute abnormalities and you are likely suffering from muscle strain or possible problems with your discs, but there is no treatment that will fix your symptoms at this time. Please take the Toradol and Robaxin that has been prescribed as directed. You should also purchase a local lidocaine cream such as "aspercreme with lidocaine" and use per bottle instructions to the affected area. Apply heat to the area as often as you are able. Continue to keep active and avoid prolonged periods of bed rest. Please follow up with your doctor as soon as possible regarding today's ED visit and your back pain. Return to the ED for worsening back pain, fever, weakness or numbness of either leg, or if you develop either (1) an inability to urinate or have bowel movements, or (2) loss of your ability to control your bathroom functions (if you start having "accidents"), or if you develop other new symptoms that concern you.concern you. Prescriptions: Ketorolac Tromethamine [Toradol 10 mg Tablet] 10 mg PO Q6HP PRN #20 tablet PRN Reason: Methocarbamol [Robaxin 750 mg Tablet] 750 mg PO ASDIR PRN #40 tablet PRN Reason: Referrals: BENJI MIRANDA MD [Primary Care Provider] - Follow up as needed
== END 2018-11-09 15:53 | disposition home or self-care (01) ==
LOC: ER 14:50
DX: G89.29 Other chronic pain (principal); M54.5 Low back pain; I10 Essential (primary) hypertension; I25.2 Old myocardial infarction
CPT/HCPCS: 99283; 96372; J1885; J1100

== ENCOUNTER 2018-11-10 15:35 | Emergency (ER) | payer SELFPAY ==
[2018-11-10] MEDS ORDERED: ASPIRIN 81 MG TABLET, CHEWABLE PO ONE (16:28)
[2018-11-10] MEDS ORDERED: METOPROLOL TARTRATE 25 MG TABLET PO ONE (16:29)
--- NOTE | 2018-11-10 16:30 | ER Document Report ---
ED Medical Screen (RME) - General Chief Complaint: Chest Pain Stated Complaint: HIGH BLOOD PRESSURE Time Seen by Provider: 11/10/18 16:19 Primary Care Provider: BENJI MIRANDA MD [Primary Care Provider] - Follow up as needed Mode of Arrival: Ambulatory Information source: Patient Notes: This is a 43-year-old man with a history of hypertension, [place] in 2010 who presents to the emergency room with elevated blood pressure. Patient also notes he was experiencing some nonradiating chest pain. Denies any pain at this time. He denies shortness of breath. TRAVEL OUTSIDE OF THE [place] IN LAST 30 DAYS: No - Related Data Allergies/Adverse Reactions: No Known Drug Allergies Allergy (Verified 11/09/18 14:50) Past Medical History - Past Medical History Cardiac Medical History: Reports: Hx Heart Attack - 2010, Hx Hypercholesterolemia, Hx Hypertension Renal/ Medical History: Denies: Hx Peritoneal Dialysis Musculoskeltal Medical History: Reports Hx Arthritis, Reports Hx Musculoskeletal Deformity, Reports Hx Musculoskeletal Trauma Traumatic Medical History: Reports: Hx Fractures - Wrist Past Surgical History: Reports: Hx Cardiac Catheterization, Hx Orthopedic Surgery - RIGHT WRIST - Immunizations Immunizations up to date: Yes Hx Diphtheria, Pertussis, Tetanus Vaccination: Yes Physical Exam - Vital signs Vitals: Temp Pulse Resp BP Pulse Ox 98.8 F 130 H 20 165/86 H 98 11/10/18 16:03 11/10/18 16:03 11/10/18 16:03 11/10/18 16:03 11/10/18 16:03 Course - Vital Signs Vital signs: Temp Pulse Resp BP Pulse Ox 98.8 F 130 H 20 165/86 H 98 11/10/18 16:03 11/10/18 16:03 11/10/18 16:03 11/10/18 16:03 11/10/18 16:03 Doctor's Discharge - Discharge Referrals: BENJI MIRANDA MD [Primary Care Provider] - Follow up as needed
--- NOTE | 2018-11-10 16:44 | RADIOLOGY REPORT (SQ) ---
EXAM DESCRIPTION: CHEST SINGLE VIEW COMPLETED DATE/TIME: 11/10/2018 4:36 pm REASON FOR STUDY: chest pain COMPARISON: 10/19/2015 EXAM PARAMETERS: NUMBER OF VIEWS: One view. TECHNIQUE: Single frontal radiographic view of the chest acquired. RADIATION DOSE: NA LIMITATIONS: None. FINDINGS: LUNGS AND PLEURA: No opacities, masses or pneumothorax. No pleural effusion. MEDIASTINUM AND HILAR STRUCTURES: No masses. Contour normal. HEART AND VASCULAR STRUCTURES: Heart normal in size. Normal vasculature. BONES: No acute findings. HARDWARE: None in the chest. OTHER: No other significant finding. IMPRESSION: NO ACUTE RADIOGRAPHIC FINDING IN THE CHEST. TECHNICAL DOCUMENTATION: JOB ID: [id number] [employer]- All Rights Reserved Reading location - IP/workstation name: [email or web address]
[2018-11-10 19:20] LABS: ABSOLUTE BASOPHILS # (AUTO) 0.1 10^3/uL (0.0-0.2); ABSOLUTE LYMPHOCYTES (AUTO) 1.5 10^3/uL (0.5-4.7); ABSOLUTE MONOCYTES (AUTO) 2.1 10^3/uL (0.1-1.4); ABSOLUTE NEUT (AUTO) 15.7 10^3/uL (1.7-8.2); BASOPHILS % (AUTO) 0.7 % (0-2); HEMATOCRIT 42.3 % (37.9-51.0); HEMOGLOBIN 14.2 g/dL (13.5-17.0); LYMPHOCYTES % (AUTO) 7.9 % (13-45); MEAN CORPUSCULAR HEMOGLOBIN 29.5 pg (27.0-33.4); MEAN CORPUSCULAR HGB CONC 33.6 g/dL (32.0-36.0); MEAN CORPUSCULAR VOLUME 88 fl (80-97); MONOCYTES % (AUTO) 10.8 % (3-13); PLATELET COUNT 259 10^3/uL (150-450); RED BLOOD COUNT 4.82 10^6/uL (4.35-5.55); RED CELL DISTRIBUTION WIDTH 13.7 % (11.5-14.0); SEGMENTED NEUTROPHILS % (AUTO) 80.6 % (42-78); TOTAL CELLS COUNTED % (AUTO) 100 %; WHITE BLOOD COUNT 19.5 10^3/uL (4.0-10.5)
[2018-11-10 19:44] LABS: ALANINE AMINOTRANSFERASE 39 U/L (21-72); ALBUMIN 4.6 g/dL (3.5-5.0); ALKALINE PHOSPHATASE 64 U/L (38-126); ANION GAP 11 (5-19); ASPARTATE AMINO TRANSFERASE 31 U/L (17-59); BILIRUBIN,DIRECT 0.3 mg/dL (0.0-0.4); BILIRUBIN,TOTAL 0.5 mg/dL (0.2-1.3); BLOOD UREA NITROGEN 21 mg/dL (7-20); CALCIUM 10.2 mg/dL (8.4-10.2); CARBON DIOXIDE 26 mmol/L (22-30); CHLORIDE 107 mmol/L (98-107); CREATINE KINASE 437 U/L (55-170); GLUCOSE 98 mg/dL (75-110); POTASSIUM 4.4 mmol/L (3.6-5.0); SODIUM 144.1 mmol/L (137-145); TOTAL PROTEIN 7.4 g/dL (6.3-8.2)
[2018-11-10 19:53] LABS: CREATINE KINASE MB 2.45 ng/mL (<4.55)
[2018-11-10 19:55] LABS: TROPONIN I < 0.012 ng/mL
--- NOTE | 2018-11-10 20:07 | ER Document Report ---
ED General - General Chief Complaint: Chest Pain Stated Complaint: HIGH BLOOD PRESSURE Time Seen by Provider: 11/10/18 16:19 Primary Care Provider: BENJI MIRANDA MD [Primary Care Provider] - Follow up as needed Mode of Arrival: Ambulatory TRAVEL OUTSIDE OF THE [place] IN LAST 30 DAYS: No - HPI Notes: Patient presents emergency department for evaluation of elevated blood pressure and elevated heart rate. He states he had a headache. He was at the drugstore so we decided to have his blood pressure checked. It was approximately 150/100. He does have a history of high blood pressure. He states he took his metoprolol earlier today but has not taken his second dose. He has been taking his medications at home as prescribed. He does follow with a doctor. He notes that he was actually seen here yesterday for back pain. At this point his headache is minimal. He states there was nothing out of the ordinary with this headache. He denies any visual changes. No chest pain or difficulty breathing. No other acute associated symptoms. - Related Data Allergies/Adverse Reactions: No Known Drug Allergies Allergy (Verified 11/09/18 14:50) Past Medical History - General Information source: Patient - Social History Smoking Status: Unknown if Ever Smoked Family History: Arthritis, CAD, CVA, DM, Hyperlipidemia, Hypertension, Malignancy, Thyroid Disfunction Patient has suicidal ideation: No Patient has homicidal ideation: No - Past Medical History Cardiac Medical History: Reports: Hx Heart Attack - 2010, Hx Hypercholesterolemia, Hx Hypertension Renal/ Medical History: Denies: Hx Peritoneal Dialysis Musculoskeletal Medical History: Reports Hx Arthritis, Reports Hx Musculoskeletal Deformity, Reports Hx Musculoskeletal Trauma Traumatic Medical History: Reports: Hx Fractures - Wrist Past Surgical History: Reports: Hx Cardiac Catheterization, Hx Orthopedic Surgery - RIGHT WRIST - Immunizations Immunizations up to date: Yes Hx Diphtheria, Pertussis, Tetanus Vaccination: Yes Review of Systems - Review of Systems Constitutional: No symptoms reported EENT: No symptoms reported Cardiovascular: No symptoms reported Respiratory: No symptoms reported Gastrointestinal: No symptoms reported Musculoskeletal: Back pain Skin: No symptoms reported Hematologic/Lymphatic: No symptoms reported Neurological/Psychological: No symptoms reported Physical Exam - Vital signs Vitals: Temp Pulse Resp BP Pulse Ox 98.8 F 130 H 20 165/86 H 98 11/10/18 16:03 11/10/18 16:03 11/10/18 16:03 11/10/18 16:03 11/10/18 16:03 Interpretation: Hypertensive - Notes Notes: Vital signs reviewed, please refer to chart. Patient is normocephalic, atraumatic. Pupils equal round, reactive to light. Neck is supple without meningismus. Heart is regular rate and rhythm. Lungs are clear to auscultation bilaterally. Abdomen is soft, nontender, normoactive bowel sounds throughout. Extremities without cyanosis, clubbing, edema. Peripheral pulses are equal. Skin is warm and dry. Patient is awake, alert, oriented x3. Cranial nerves II through XII grossly intact without focal neurological deficits. Strength was 5 out of 5 bilateral upper and lower extremities. Sensation is intact, gait within normal limits. Course - Re-evaluation Re-evalutation: 11/10/18 20:05 Patient presents to the emergency department for evaluation of elevated heart rate, elevated blood pressure. Laboratory vesication, chest x-ray, EKG were performed. The patient's EKG was unremarkable. Laboratory vesication's were remarkable only for leukocytosis, explainable easily by the Decadron shot that he received yesterday. The patient's heart rate was in the 70s after his appropriate dose of metoprolol. His blood pressure was mildly elevated here, but he does not show any signs of endorgan damage. I strongly encouraged him to continue to check his blood pressure when he is not having any sorts of painful symptoms. He is to keep a record of these and go back to the clinic to see if he needs any adjustment in his medications. He voiced understanding to this. He is to return to the emergency department should he develop worsening or new concerning symptoms of any sort - Vital Signs Vital signs: Temp Pulse Resp BP Pulse Ox 98.8 F 130 H 19 154/96 H 99 11/10/18 16:03 11/10/18 16:03 11/10/18 19:19 11/10/18 19:19 11/10/18 19:19 - Laboratory Result Diagrams: 11/10/18 19:05 11/10/18 19:05 Laboratory results interpreted by me: 11/10/18 11/10/18 19:05 19:05 WBC 19.5 H Seg Neutrophils % 80.6 H Lymphocytes % 7.9 L Absolute Neutrophils 15.7 H Absolute Monocytes 2.1 H BUN 21 H Creatine Kinase 437 H - Diagnostic Test Radiology reviewed: Reports reviewed - Negative - EKG Interpretation by Me Additional EKG results interpreted by me: 11/10/18 20:04 Sinus tachycardia with a rate of 112 bpm. Normal axis. First-degree AV block. No acute ST changes concerning for ischemia or infarction. Discharge - Discharge Clinical Impression: Hypertension Condition: Good Disposition: HOME, SELF-CARE Instructions: High Blood Pressure ([facility]) Additional Instructions: Continue to take your blood pressure medications at home as prescribed. Keep a record of your blood pressures and bring them to your next doctor appointment. You may require adjustment in your blood pressure medications. Return to the emergency department with worsening or new concerning symptoms of any sort. Referrals: BENJI MIRANDA MD [Primary Care Provider] - Follow up as needed
[2018-11-10 20:19] VITALS: BP 153/92
--- NOTE | 2018-11-10 21:19 | EKG REPORT ---
SEVERITY:- ABNORMAL ECG - SINUS TACHYCARDIA FIRST DEGREE AV BLOCK PROBABLE LEFT ATRIAL ABNORMALITY BORDERLINE T ABNORMALITIES, INFERIOR LEADS : Confirmed by: Vivian Whelan MD 10-Nov-2018 21:18:44
== END 2018-11-10 20:19 | disposition home or self-care (01) ==
LOC: ER 15:35
DX: I10 Essential (primary) hypertension (principal); Z79.899 Other long term (current) drug therapy; R00.0 Tachycardia, unspecified; I44.0 Atrioventricular block, first degree; R51 Headache; I25.2 Old myocardial infarction; D72.829 Elevated white blood cell count, unspecified; Z98.890 Other specified postprocedural states
CPT/HCPCS: 36415; 71045; 80053; 82550; 82553; 84484; 85025; 93005; 93010; 99284

== ENCOUNTER 2018-12-16 10:27 | Emergency (ER) | payer BC ==
[2018-12-16 10:33] VITALS: BP 136/81
[2018-12-16] MEDS ORDERED: KETOROLAC TROMETHAMINE 60 MG/2 ML SDV IM ONE (10:48)
[2018-12-16] MEDS ORDERED: LIDOCAINE 5% (700 MG) TRANSDERMAL ADH..PATCH TP ONE (10:48)
[2018-12-16] MEDS ORDERED: METHOCARBAMOL 750 MG TABLET PO ONE (10:48)
--- NOTE | 2018-12-16 10:50 | ER Document Report ---
HPI - HPI Patient complains to provider of: back pain Time Seen by Provider: 12/16/18 10:39 Onset: Yesterday Onset/Duration: Gradual Quality of pain: Achy Pain Level: 2 Context: Patient has a history of chronic low back pain and reports a flareup that started yesterday. Patient works in [employer] and does a lot of bending over and lifting. Patient denies any fever, urinary retention or incontinence. Patient denies any radiculopathy or paresthesia. Patient states that anti- inflammatories and muscle relaxers have helped in the past. Associated Symptoms: denies: Fever, Headache Exacerbated by: Movement Relieved by: Denies Similar symptoms previously: Yes Recently seen / treated by doctor: No - ROS ROS below otherwise negative: Yes Systems Reviewed and Negative: Yes All other systems reviewed and negative - CONSTITUTIONAL Constitutional: DENIES: Fever, Chills - NEURO Neurology: DENIES: Headache, Weakness - GASTROINTESTINAL Gastrointestinal: DENIES: Nausea - URINARY Urinary: DENIES: Dysuria, Urgency, Frequency - MUSCULOSKELETAL Musculoskeletal: REPORTS: Back Pain. DENIES: Extremity pain - DERM Skin Color: Normal Skin Problems: None Past Medical History - General Information source: Patient - Social History Smoking Status: Never Smoker Smoking Education Provided: No Frequency of alcohol use: None Drug Abuse: None Occupation: [employer] Lives with: Family Family History: Arthritis, CAD, CVA, DM, Hyperlipidemia, Hypertension, Malignancy, Thyroid Disfunction - Past Medical History Cardiac Medical History: Reports: Hx Heart Attack - 2010, Hx Hypercholesterolemia, Hx Hypertension Renal/ Medical History: Denies: Hx Peritoneal Dialysis Musculoskeletal Medical History: Reports Hx Arthritis, Reports Hx Musculoskeletal Deformity, Reports Hx Musculoskeletal Trauma Traumatic Medical History: Reports: Hx Fractures - Wrist Past Surgical History: Reports: Hx Cardiac Catheterization, Hx Orthopedic Surgery - RIGHT WRIST - Immunizations Immunizations up to date: Yes Hx Diphtheria, Pertussis, Tetanus Vaccination: Yes Vertical Provider Document - CONSTITUTIONAL Agree With Documented VS: Yes Exam Limitations: No Limitations General Appearance: WD/WN, No Apparent Distress Notes: PHYSICAL EXAMINATION: GENERAL: Well-appearing, well-nourished and in no acute distress. HEAD: Atraumatic, normocephalic. EYES: sclera clear, anicteric, conjunctiva are normal. ENT: nares patent, Moist mucous membranes. NECK: Normal range of motion, supple no lymphadenopathy LUNGS: respirations unlabored HEART: Regular rate and rhythm without murmurs EXTREMITIES: Normal range of motion, no pitting or edema. No cyanosis. Gait normal, pt ambulates without difficulty BACK: Lower lumbar paraspinal tenderness, lumbar midline tenderness, no deformities or step-offs. No CVA tenderness. NEUROLOGICAL: Cranial nerves grossly intact. Normal speech, normal gait. No saddle anesthesia. No foot drop PSYCH: Normal mood, normal affect. SKIN: Warm, Dry, normal turgor, no rashes or lesions noted. - INFECTION CONTROL TRAVEL OUTSIDE OF THE [place] IN LAST 30 DAYS: No Course - Re-evaluation Re-evalutation: 12/16/18 10:48 The patient presents with low back pain without signs of spinal cord compression, cauda equina syndrome, infection, aneurysm, or other serious etiology. The patient is neurologically intact. Given the extremely risk of these diagnoses further testing and evaluation for these possibilities does not appear to be indicated at this time. Patient has been instructed to return if the symptoms worsen or change in any way. 12/16/18 10:56 Patient prefers to have steroid shot here today. Patient advised that steroids should not be mixed with anti-inflammatories to limit risk of GI bleed therefore will cancel the Toradol shot at this time. - Vital Signs Vital signs: Temp Pulse Resp BP Pulse Ox 98.3 F 64 14 136/81 H 97 12/16/18 10:32 12/16/18 10:32 12/16/18 10:32 12/16/18 10:32 12/16/18 10:32 Discharge - Discharge Clinical Impression: Low back strain Qualifiers: Encounter type: initial encounter Qualified Code(s): S39.012A - Strain of muscle, fascia and tendon of lower back, initial encounter Condition: Stable Disposition: HOME, SELF-CARE Instructions: Ice Packs ([facility]), Low Back Pain ([facility]), Muscle Strain ([facility]) Additional Instructions: Return immediately for any new or worsening symptoms Followup with your primary care provider, call tomorrow to make a followup appointment Prescriptions: Lidocaine [Lidoderm 5% (700 mg) Transdermal Patch] 1 patch TP DAILY PRN #10 adh..patch PRN Reason: Methocarbamol [Robaxin 500 Mg Tablet] 500 mg PO QID PRN #40 tablet PRN Reason: Naproxen [Naprosyn 250 Nmg Tablet] 1 tab PO BID #14 tablet Forms: Return to Work Referrals: BENJI MIRANDA MD [Primary Care Provider] - Follow up as needed [facility] [Provider Group] - Follow up as needed
[2018-12-16] MEDS ORDERED: DEXAMETHASONE SOD PHOS INJ 10 MG/1 ML VIAL IM ONE (10:55)
== END 2018-12-16 11:28 | disposition home or self-care (01) ==
LOC: ER 10:27
DX: S39.012A Strain of muscle, fascia and tendon of lower back, initial encounter (principal); X50.1XXA Overexertion from prolonged static or awkward postures, initial encounter; E78.00 Pure hypercholesterolemia, unspecified; I10 Essential (primary) hypertension; I25.2 Old myocardial infarction
CPT/HCPCS: 99283; 96372; J3490; J1100

== ENCOUNTER → 2019-01-31 | Outpatient (CLI) | payer BC ==
[~2019-01-31] MED LIST: REGADENOSON INJ 0.4 MG/5 ML DISP.SYRIN IV ONE
--- NOTE | 2019-02-01 21:45 | XCELERA REPORT ---
[address] [address] Transthoracic Echocardiogram Report Name: JOSE MANUEL ZARCO JR, JR Age: 43 yrs Gender: Male : 1975 Patient Status: Outpatient Patient Location: RAD Study Date: 01/31/2019 11:18 AM Height: 68 in Weight: 225 lb BSA: 2.1 m2 Procedure: A two-dimensional transthoracic echocardiogram with color flow and Doppler was performed. The study was technically difficult with many images being suboptimal in quality. Reason For Study: HTN/ [place] History: HTN/ [place]. Ordering Physician: IRINEO SIFUENTES Performed By: Norris Graham Interpretation Summary A two-dimensional transthoracic echocardiogram with color flow and Doppler was performed. The left ventricle is normal in size. LV EF is 70% There is mild concentric left ventricular hypertrophy. Doppler measurements suggest normal left ventricular diastolic function The left ventricular wall motion is normal. There is no thrombus. There is no ventricular septal defect visualized. The right ventricle is normal in size and function. The right atrium is normal. The left atrial size is normal. The interatrial septum is intact with no evidence for an atrial septal defect. There is no Doppler evidence for an interatrial shunt There is no evidence of mitral valve prolapse. There is no vegetation seen on the mitral valve. There is no mitral valve stenosis. There is a trace amount of mitral regurgitation There is no aortic valvular vegetation. There is no aortic valve stenosis There is no LVOT obstruction. No aortic regurgitation is present. There is no tricuspid stenosis. There is a trace to mild amount of tricuspid regurgitation There is mild pulmonary hypertension by echo RVSP is 31 to 36 mm of Hg , with RA mean of 5 to 100. There is no pulmonic valvular stenosis. There is a trace amount of pulmonic regurgitation The aortic root is normal size. The inferior vena cava appeared normal and decreased > 50% with respiration (RAP 5-10 mmHg) There is no pericardial effusion. MMode/2D Measurements & Calculations RVDd: 2.6 cm LVIDd: 4.1 cm FS: 45.3 % Ao root diam: 2.9 cm IVSd: 1.3 cm LVIDs: 2.2 cm EDV(Teich): 74.7 ml Ao root area: 6.8 cm2 LVPWd: 1.1 cm ESV(Teich): 17.1 ml LA dimension: 3.2 cm EF(Teich): 77.1 % Doppler Measurements & Calculations MV E max jennyfer: MV P1/2t max jennyfer: Ao V2 max: LV V1 max P.5 cm/sec 106.2 cm/sec 164.4 cm/sec 8.3 mmHg MV A max jennyfer: MV P1/2t: 75.6 msec Ao max PG: LV V1 max: 92.8 cm/sec MVA(P1/2t): 2.9 cm2 10.8 mmHg 144.1 cm/sec MV E/A: 1.2 MV dec slope: 411.2 cm/sec2 MV dec time: 0.22 sec PA V2 max: PI end-d jennyfer: TR max jennyfer: MV P1/2t-pr_phl: 109.1 cm/sec 89.6 cm/sec 253.8 cm/sec 75.6 msec PA max P.8 mmHg TR max P.8 mmHg Left Ventricle The left ventricle is normal in size. There is mild concentric left ventricular hypertrophy. LV EF is 70%. Doppler measurements suggest normal left ventricular diastolic function. The left ventricular wall motion is normal. There is no thrombus. There is no ventricular septal defect visualized. Right Ventricle The right ventricle is normal in size and function. Atria The right atrium is normal. The left atrial size is normal. The interatrial septum is intact with no evidence for an atrial septal defect. There is no Doppler evidence for an interatrial shunt. Mitral Valve There is mild mitral annular calcification. There is no evidence of mitral valve prolapse. There is no vegetation seen on the mitral valve. There is no mitral valve stenosis. There is a trace amount of mitral regurgitation. Aortic Valve There is no aortic valvular vegetation. There is no aortic valve stenosis. There is no LVOT obstruction. No aortic regurgitation is present. Tricuspid Valve There is no tricuspid stenosis. There is a trace to mild amount of tricuspid regurgitation. There is mild pulmonary hypertension by echo. RVSP is 31 to 36 mm of Hg , with RA mean of 5 to 100. Pulmonic Valve There is no pulmonic valvular stenosis. There is a trace amount of pulmonic regurgitation. Great Vessels The aortic root is normal size. The inferior vena cava appeared normal and decreased > 50% with respiration (RAP 5-10 mmHg). Effusions There is no pericardial effusion. : IRINEO SIFUENTES > Vivian Whelan
--- NOTE | 2019-02-01 22:37 | DRAGON STRESS TEST REPORT ---
Intravenous Lexiscan Cardiolite stress test using single photon emmision computerized tomography. Date of procedure: 01/31/2019. Ordering Provider: Dr. David Carlton. Patient's status: Out Patient. Indication: Hypertension and preoperative cardiac risk assessment. Coronary risk factors: Age, and dyslipidemia Resting EKG: Sinus Rhythm. Within Normal Limits Stress EKG: No changes of ischemia. The patient had no chest pain or discomfort, and there were no arrhythmias seen. Reason for termination: Protocol. Conclusions: Normal EKG and hemodynamic response to IV Lexiscan. Nuclear data: At rest the patient was given 13.98 millicuries of technetium 99m sestamibi injected intravenously. As per protocol rest non gated SPECT images were obtained. Subsequently the patient was given intravenous Lexiscan at a dose of 0.4 mg in 5 mL intravenously, followed by flush with normal saline. Subsequently the stress dose of 44.9 millicuries of technetium 99m sestamibi was injected intravenously. As per protocol stress gated images were obtained. Nuclear interpretation: Review of images showed that all segments of the myocardium had normal perfusion at rest, and normal perfusion post stress with IV Lexiscan. All segments of the myocardium had normal motion, contraction, and thickening by gated study. T. I D. ratio was normal at 1.02. There is no transient ischemic dilatation of the left ventricle. Computer read rest, and stress left ventricular ejection fraction were 67 %, and 69 %, respectively. Conclusion: 1. There is no scintigraphic evidence of Lexiscan induced myocardial ischemia. 2. There is no scintigraphic evidence of myocardial infarction/scar. Recommendations: Aggressive risk factor modification, and treating the underlying co- morbidities. MTDD
== END ==
LOC: RAD 08:09
PROVIDERS: ATTEND Internal Medicine Cardiovascular Disease
DX: I25.10 Atherosclerotic heart disease of native coronary artery without angina pectoris (principal); I10 Essential (primary) hypertension
CPT/HCPCS: 93306; 93017; 78452; A9500; J2785; Q9969

== ENCOUNTER 2019-02-21 08:01 | Inpatient (IN) | payer BC ==
--- NOTE | 2019-02-21 09:33 | ER Document Report ---
ED Medical Screen (RME) - General Chief Complaint: Nausea/Vomiting Stated Complaint: VOMITING Time Seen by Provider: 02/21/19 09:31 Primary Care Provider: IRINEO SIFUENTES MD [Primary Care Provider] - Follow up as needed Mode of Arrival: Ambulatory Information source: Patient Notes: 43-year-old male presented to ED for nausea and vomiting started this morning. He states he had his prostate removed last week went home from [place] on Tuesday she started with the nausea and vomiting today. He states he does have some pain in his surgical site and would like his urine checked for a UTI. He states he supposed to return on Tuesday to have his catheter removed. Is alert oriented respirations regular and unlabored speaking in full sentences. I have greeted and performed a rapid initial assessment of this patient. A comprehensive ED assessment and evaluation of the patient, analysis of test results and completion of medical decision making process will be conducted by an additional ED providers. Dictation of this chart was performed using voice recognition software; therefore, there may be some unintended grammatical errors. TRAVEL OUTSIDE OF THE [place] IN LAST 30 DAYS: No - Related Data Allergies/Adverse Reactions: No Known Drug Allergies Allergy (Verified 02/21/19 08:06) Past Medical History - Past Medical History Cardiac Medical History: Reports: Hx Heart Attack - 2010, Hx Hypercholesterolemia, Hx Hypertension Renal/ Medical History: Denies: Hx Peritoneal Dialysis Musculoskeltal Medical History: Reports Hx Arthritis, Reports Hx Musculoskeletal Deformity, Reports Hx Musculoskeletal Trauma Traumatic Medical History: Reports: Hx Fractures - Wrist Past Surgical History: Reports: Hx Cardiac Catheterization, Hx Orthopedic Surgery - RIGHT WRIST - Immunizations Immunizations up to date: Yes Hx Diphtheria, Pertussis, Tetanus Vaccination: Yes Physical Exam - Vital signs Vitals: Temp Pulse BP Pulse Ox 98.2 F 70 137/94 H 96 02/21/19 08:13 02/21/19 08:13 02/21/19 08:13 02/21/19 08:13 Course - Vital Signs Vital signs: Temp Pulse Resp BP Pulse Ox 98.2 F 70 137/94 H 96 02/21/19 08:13 02/21/19 08:13 02/21/19 08:13 02/21/19 08:13 Doctor's Discharge - Discharge Referrals: RIINEO SIFUENTES MD [Primary Care Provider] - Follow up as needed
[2019-02-21 10:02] LABS: ABSOLUTE EOSINOPHILS # (AUTO) 0.2 10^3/uL (0.0-0.6); ABSOLUTE MONOCYTES (AUTO) 0.8 10^3/uL (0.1-1.4); ABSOLUTE NEUT (AUTO) 6.1 10^3/uL (1.7-8.2); BASOPHILS % (AUTO) 0.6 % (0-2); EOSINOPHILS % (AUTO) 2.2 % (0-6); HEMATOCRIT 43.3 % (37.9-51.0); HEMOGLOBIN 14.5 g/dL (13.5-17.0); LYMPHOCYTES % (AUTO) 12.4 % (13-45); MEAN CORPUSCULAR HEMOGLOBIN 29.7 pg (27.0-33.4); MEAN CORPUSCULAR HGB CONC 33.5 g/dL (32.0-36.0); MEAN CORPUSCULAR VOLUME 89 fl (80-97); MONOCYTES % (AUTO) 9.4 % (3-13); PLATELET COUNT 273 10^3/uL (150-450); RED BLOOD COUNT 4.88 10^6/uL (4.35-5.55); RED CELL DISTRIBUTION WIDTH 13.3 % (11.5-14.0); SEGMENTED NEUTROPHILS % (AUTO) 75.4 % (42-78); TOTAL CELLS COUNTED % (AUTO) 100 %
[2019-02-21 10:11] LABS: APPEARANCE,URINE CLEAR; BILIRUBIN,URINE NEGATIVE (NEGATIVE); COLOR,URINE STRAW; GLUCOSE, URINE NEGATIVE (NEGATIVE); KETONES,URINE NEGATIVE (NEGATIVE); LEUKOCYTE ESTERASE,URINE TRACE (NEGATIVE); NITRITE,URINE NEGATIVE (NEGATIVE); PROTEIN,URINE NEGATIVE (NEGATIVE); URINE SPECIFIC GRAVITY 1.005; UROBILINOGEN,URINE NEGATIVE mg/dL (<2.0)
[2019-02-21 10:19] LABS: ALANINE AMINOTRANSFERASE 24 U/L (21-72); ALKALINE PHOSPHATASE 67 U/L (38-126); ANION GAP 14 (5-19); ASPARTATE AMINO TRANSFERASE 22 U/L (17-59); BILIRUBIN,DIRECT 0.3 mg/dL (0.0-0.4); BILIRUBIN,TOTAL 0.6 mg/dL (0.2-1.3); BLOOD UREA NITROGEN 35 mg/dL (7-20); CALCIUM 9.9 mg/dL (8.4-10.2); CARBON DIOXIDE 30 mmol/L (22-30); CHLORIDE 104 mmol/L (98-107); GLUCOSE 102 mg/dL (75-110); POTASSIUM 4.4 mmol/L (3.6-5.0); SODIUM 147.6 mmol/L (137-145); TOTAL PROTEIN 7.3 g/dL (6.3-8.2)
--- NOTE | 2019-02-21 11:41 | ER Document Report ---
Entered by MARCO THAKUR SCRIBE 02/21/19 1057 Acting as scribe for:STIVEN CARLTON MD ED General - General Chief Complaint: Nausea/Vomiting Stated Complaint: VOMITING Time Seen by Provider: 02/21/19 09:31 Primary Care Provider: IRINEO SIFUENTES MD [DRIVER OPERATOR] - Follow up as needed Mode of Arrival: Ambulatory Information source: Patient Notes: Patient is 43 year old male with HTN presents to the emergency department complaining of nausea and vomiting onset today. Patient states he had a prostatectomy due to malignancy 1 week ago on 02/13/19 and was discharged home on 02/14/19. Patient states he has not had any nausea or vomiting until this morning. He states he has had decreased appetite further stating he has not eaten much since the surgery. He also states he has not had a bowel movement since before the surgery and reports being discharged home with Colace. He denies any current nausea or worsening abdominal pain. TRAVEL OUTSIDE OF THE [place] IN LAST 30 DAYS: No - Related Data Allergies/Adverse Reactions: No Known Drug Allergies Allergy (Verified 02/21/19 08:06) Past Medical History - General Information source: Patient - Social History Smoking Status: Never Smoker Frequency of alcohol use: None Drug Abuse: None Family History: Arthritis, CAD, CVA, DM, Hyperlipidemia, Hypertension, Malignancy, Thyroid Disfunction Patient has suicidal ideation: No Patient has homicidal ideation: No - Past Medical History Cardiac Medical History: Reports: Hx Heart Attack - 2010, Hx Hyp ercholesterolemia, Hx Hypertension Malignancy Medical History: Reports Hx Prostate Cancer Musculoskeletal Medical History: Reports Hx Arthritis, Reports Hx Musculoskeletal Deformity, Reports Hx Musculoskeletal Trauma Traumatic Medical History: Reports: Hx Fractures - Wrist Past Surgical History: Reports: Hx Cardiac Catheterization, Hx Orthopedic Surgery - RIGHT WRIST, Other - Prostatectomy - Immunizations Immunizations up to date: Yes Hx Diphtheria, Pertussis, Tetanus Vaccination: Yes Review of Systems - Review of Systems Constitutional: No symptoms reported EENT: No symptoms reported Cardiovascular: No symptoms reported Respiratory: No symptoms reported Gastrointestinal: See HPI, Nausea, Vomiting Genitourinary: No symptoms reported Male Genitourinary: No symptoms reported Musculoskeletal: No symptoms reported Skin: No symptoms reported Hematologic/Lymphatic: No symptoms reported Neurological/Psychological: No symptoms reported -: Yes All other systems reviewed and negative Physical Exam - Vital signs Vitals: Temp Pulse BP Pulse Ox 98.2 F 70 137/94 H 96 02/21/19 08:13 02/21/19 08:13 02/21/19 08:13 02/21/19 08:13 - Notes Notes: GENERAL: Alert, interacts well. No acute distress. HEAD: Normocephalic, atraumatic. EYES: Pupils equal, round, and reactive to light. Extraocular movements intact. ENT: Oral mucosa moist, tongue midline. NECK: Full range of motion. Supple. Trachea midline. LUNGS: Clear to auscultation bilaterally, no wheezes, rales, or rhonchi. No respiratory distress. HEART: Regular rate and rhythm. No murmurs, gallops, or rubs. ABDOMEN: Soft, tender to palpate the lower abdomen. Distended, hyperactive bowel sounds, resonant to percussion. No guarding, rigidity, or rebound. : Escalera catheter in place with clear yellow urine. EXTREMITIES: Moves all 4 extremities spontaneously. No edema, radial and dorsali s pedis pulses 2/4 bilaterally. No cyanosis. NEUROLOGICAL: Alert and oriented x3. Normal speech. PSYCH: Normal affect, normal mood. SKIN: Warm, dry, normal turgor. No rashes or lesions noted. Course - Re-evaluation Re-evalutation: 02/21/19 12:45 The patient's BUN is 35, and his creatinine is 5.03 On 11/10/2018 the patient's BUN was 21 his creatinine is 1.21 Flat and upright abdomen views shows considerable constipation. - Vital Signs Vital signs: Temp Pulse Resp BP Pulse Ox 98.2 F 70 137/94 H 96 02/21/19 08:13 02/21/19 08:13 02/21/19 08:13 02/21/19 08:13 - Laboratory Result Diagrams: 02/21/19 09:45 02/21/19 09:45 Laboratory results interpreted by me: 02/21/19 02/21/19 02/21/19 09:45 09:45 09:45 Lymphocytes % 12.4 L Sodium 147.6 H BUN 35 H Creatinine 5.03 H Est GFR ( Amer) 15 L Est GFR (Non-Af Amer) 13 L Urine Blood MODERATE H Ur Leukocyte Esterase TRACE H - Diagnostic Test Radiology reviewed: Image reviewed, Reports reviewed - Acute abdominal series shows marketed constipation, with some gas in the abdominal wall consistent with the recent surgical procedure. CT scan shows expected postsurgical changes, the constipation seen on plain films, with no suggestion of urinary leaking, and no hydronephrosis or hydroureter or any thing else to explain the patient's acute rise in his serum creatinine. - Consults Dr. Anderson Time consulted: 15:10 Consulted provider: will come to ER Discharge - Discharge Clinical Impression: S/P prostatectomy Acute renal failure Qualifiers: Acute renal failure type: unspecified Qualified Code(s): N17.9 - Acute kidney failure, unspecified Constipation Qualifiers: Constipation type: unspecified constipation type Qualified Code(s): K59.00 - Constipation, unspecified Nausea and vomiting Qualifiers: Vomiting type: unspecified Vomiting Intractability: non-intractable Qualified Code(s): R11.2 - Nausea with vomiting, unspecified Condition: Stable Disposition: ADMITTED INPATIENT Admitting Provider: Monica (Hospitalist) Unit Admitted: Medical Floor Referrals: IRINEO SIFUENTES MD [[facility]] - Follow up as needed Scribe Attestation: 02/21/19 11:41 I personally performed the services described in the documentation, reviewed and edited the documentation which was dictated to the scribe in my presence, and it accurately records my words and actions. I personally performed the services described in the documentation, reviewed and edited the documentation which was dictated to the scribe in my presence, and it accurately records my words and actions.
[2019-02-21] MEDS ORDERED: NORMAL SALINE 1000 ML 1,000 ML IV ONE ×2 (11:46→13:25)
--- NOTE | 2019-02-21 12:14 | RADIOLOGY REPORT (SQ) ---
EXAM DESCRIPTION: ACUTE ABDOMEN SERIES COMPLETED DATE/TIME: 02/21/2019 11:44 am REASON FOR STUDY: Constipation, recent prostatectomy COMPARISON: None. NUMBER OF VIEWS: Three views. TECHNIQUE: Frontal chest, supine abdomen and upright/decubitus abdomen radiographic images acquired. LIMITATIONS: None. FINDINGS: CHEST: Lungs clear of infiltrates. FREE AIR: None. No abnormal gas collections. BOWEL GAS PATTERN: Nonobstructive pattern. No dilated loops or air fluid levels. CONSTIPATION: Marked CALCIFICATIONS: No suspicious calcifications. HARDWARE: Escalera catheter. SOFT TISSUES: There is extensive gas in the soft tissues of the is visualized abdominal wall. This i s likely postsurgical. BONES: No acute fracture. No worrisome bone lesions. OTHER: No other significant finding. IMPRESSION: Marked constipation. Extensive gas in the abdominal wall likely related to recent surgery. TECHNICAL DOCUMENTATION: JOB ID: [id number] [employer]- All Rights Reserved Reading location - IP/workstation name: [email or web address]
--- NOTE | 2019-02-21 15:02 | RADIOLOGY REPORT (SQ) ---
EXAM DESCRIPTION: CT ABD/PELVIS NO ORAL OR IV COMPLETED DATE/TIME: 02/21/2019 2:45 pm REASON FOR STUDY: Recent prostatectomy, acute renal failure COMPARISON: Abdominal films 02/21/2019 TECHNIQUE: CT scan of the abdomen and pelvis performed without intravenous or oral contrast. Images reviewed with lung, soft tissue, and bone windows. Reconstructed coronal and sagittal MPR images revi ewed. All images stored on PACS. All CT scanners at this facility use dose modulation, iterative reconstruction, and/or weight based d osing when appropriate to reduce radiation dose to as low as reasonably achievable (ALARA). [facility]: Dose Right [facility]: CareDose [facility]: Dose Right [facility]: Teradose 4D [facility]: [employer]ath [employer] RADIATION DOSE: 15.2mGy. LIMITATIONS: None. FINDINGS: Patient is post recent robotic prostatectomy. There is a Escalera catheter draining the blad judah in good positioning. Bladder is decompressed. Small amount of postoperative soft tissue gas socorro ng the periumbilical anterior abdominal wall, and right and left lower abdominal wall fat. Moderate stool throughout the colon. No pelvic fluid collection worrisome for abscess. No pelvic hematoma. No adenopathy. No hydronephrosis or hydroureter. No ureteral calculi. Moderate stool throughout the colon. Otherwise nonobstructive bowel gas pattern. These findings wer e discussed with Dr. Ashford in the emergency room. LOWER CHEST: No significant findings. No nodules or infiltrates. NON-CONTRASTED LIVER, SPLEEN, ADRENALS: Evaluation limited by lack of IV contrast. No identified sign ificant masses. PANCREAS: No masses. No peripancreatic inflammatory changes. GALLBLADDER: No identified stones by CT criteria. No inflammatory changes to suggest cholecystitis. RIGHT KIDNEY AND URETER: No suspicious masses. Assessment limited by lack of IV contrast. No signif icant calcifications. No hydronephrosis or hydroureter. LEFT KIDNEY AND URETER: No suspicious masses. Assessment limited by lack of IV contrast. No signifi cant calcifications. No hydronephrosis or hydroureter. AORTA AND RETROPERITONEUM: No aneurysm. No retroperitoneal masses or adenopathy. BOWEL AND PERITONEAL CAVITY: Congenital foregut malrotation. Cecum is in the midline pelvis. Duode num jejunal junction is to the right of the aorta. No obvious masses or inflammatory changes. No nuvia e fluid. APPENDIX: Not well seen PELVIS, BLADDER, AND ABDOMINAL WALL:No abnormal masses. No free fluid. Bladder decompressed by a Fole y catheter in good positioning. Post prostatectomy. No pelvic masses or adenopathy or free fluid. No CT evidence of pelvic abscess or seroma BONES: No significant findings. OTHER: No other significant finding. IMPRESSION: Postsurgical changes from robotic prostatectomy. No CT evidence of hydronephrosis, hydr oureter or urinary stones. Escalera catheter in good positioning in the bladder. Moderate stool throughout the colon Incidental finding of a congenital foregut malrotation without bowel obstruction COMMENT: Quality ID # [id number]: Final reports with documentation of one or more dose reduction techniques (e.g., Automated exposure control, adjustment of the mA and/or kV according to patient size, use of iterative reconstruction technique) TECHNICAL DOCUMENTATION: JOB ID: [id number] [employer]- All Rights Reserved Reading location - IP/workstation name: [email or web address]
[2019-02-21 15:42] LABS: CREATINE KINASE 103 U/L (55-170)
[2019-02-21] MEDS ORDERED: ONDANSETRON 4 MG TAB.RAPDIS PO PRN (16:19)
[2019-02-21] MEDS ORDERED: ACETAMINOPHEN 325 MG TABLET PO PRN (16:19)
[2019-02-21] MEDS ORDERED: MAG HYDROX/AL HYDROX/SIMETH SUSP 30 ML UDCUP PO PRN (16:19)
[2019-02-21] MEDS ORDERED: OXYCODONE HCL IR 5 MG TABLET PO PRN ×2 (16:25)
[2019-02-21] MEDS ORDERED: BISACODYL 10 MG SUPP.RECT PR ONE (16:27)
[2019-02-21] MEDS ORDERED: BISACODYL 10 MG SUPP.RECT PR PRN (16:27)
[2019-02-21] MEDS ORDERED: MAGNESIUM CITRATE 296 ML BOTTLE PO ONE (16:30)
[2019-02-21] MEDS ORDERED: BISACODYL 5 MG TABEC PO PRN (16:31)
[2019-02-21] MEDS: NORMAL SALINE 1000 ML 1,000 ML IV PRN ×2 (17:13→21:17)
[2019-02-21] MEDS: DOCUSATE SODIUM 100 MG CAPSULE PO SCH (18:55)
--- NOTE | 2019-02-21 19:53 | PDOC H&P ---
History of Present Illness Admission Date/PCP: 02/21/19 15:35 BENJI MIRANDA MD Patient complains of: The patient had a robotic laparoscopic prostatectomy approximately 8 days ago. He was having increased abdominal discomfort. He has not had a bowel movement in over 8 days and he was experiencing some nausea and vomiting. History of Present Illness: JOSE MANUEL ZARCO JR is a 43 year old male with a past medical history of myocardial infarction in 2010. Earlier this year he was having issues with urination. He did have a history of benign prostatic hypertrophy. His PSA was checked and his last PSA last year I believe was 2.0 and it was 10.0. He was diagnosed with a stage I prostate cancer and underwent robotic prostatectomy. He has been feeling poorly over the last several days. He did have some expected postoperative pain but he began to feel nauseated. He was taking scheduled oxycodone and using 800 mg ibuprofen tablets several times a day. He has not had a bowel movement since before the surgery. He also has some diffuse nonspecific discomfort across the abdomen. During his work-up it was found that his serum creatinine was greater than 5.0. His creatinine earlier this year was normal. His BUN was also elevated. The emergency department physician spoke with the patient's urologist. He requested a CT scan of the abdomen. CT scan reveals no abnormal pathology in the kidney and ureter. His Escalera catheter still in place from his surgery. There was stool throughout the colon. The urologist felt it was not necessary to transfer the patient to [place] at this time. Because of his marked elevation in serum creatinine he was referred to the hospital service for admission. Past Medical History Cardiac Medical History: Reports: Myocardial Infarction - 2011, Hyperlipidema, Hypertension Musculoskeltal Medical History: Reports: Arthritis Past Surgical History Past Surgical History: Reports: Cardiac Catheterization, Orthopedic Surgery - RIGHT WRIST, Other - Prostatectomy Social History Information Source: Patient Lives with: Spouse/Significant other Smoking Status: Never Smoker Frequency of Alcohol Use: None Hx Recreational Drug Use: No Hx Prescription Drug Abuse: No - Advance Directive Resuscitation Status: Full Code Surrogate healthcare decision maker:: No healthcare proxy or healthcare power of state attorney on record. Family History Family History: Arthritis, CAD, CVA, DM, Hyperlipidemia, Hypertension, Malignancy, Thyroid Disfunction Parental Family History Reviewed: Yes Children Family History Reviewed: Yes Sibling(s) Family History Reviewed.: Yes Medication/Allergy Home Medications: Docusate Sodium [Colace 100 mg Capsule] 100 mg PO BID 02/21/19 Lidocaine/Prilocaine [Lidopril 2.5%-2.5% Cream-Dress] 1 each TP QID 02/21/19 Lisinopril [Prinivil 10 mg Tablet] 10 mg PO DAILY 02/21/19 Metoprolol Tartrate [Lopressor 25 mg Tablet] 25 mg PO Q12 02/21/19 Allergies/Adverse Reactions: No Known Drug Allergies Allergy (Verified 02/21/19 08:06) Review of Systems Constitutional: ABSENT: chills, fever(s), night sweats Eyes: ABSENT: visual disturbances Ears: ABSENT: hearing changes Nose, Mouth, and Throat: ABSENT: headache(s), mouth pain, sore throat Cardiovascular: ABSENT: chest pain, edema, palpitations Respiratory: ABSENT: cough, dyspnea, sputum Gastrointestinal: PRESENT: abdominal pain, constipation, nausea, vomiting, other - Decreased appetite over the last several days. ABSENT: diarrhea Genitourinary: PRESENT: other - Escalera catheter has been in place since his s urgery Integumentary: PRESENT: other - Multiple abdominal incisions from the robotic prostatectomy. Incision on the right abdomen from the surgical drain. Neurological: ABSENT: abnormal speech, confusion, memory loss, syncope, tremor(s) Psychiatric: ABSENT: anxiety, depression, hallucinations Endocrine: ABSENT: cold intolerance, flushing, heat intolerance Hematologic/Lymphatic: ABSENT: easy bleeding, easy bruising Physical Exam Vital Signs: Temp Pulse Resp BP Pulse Ox 98.2 F 70 137/94 H 96 02/21/19 08:13 02/21/19 08:13 02/21/19 08:13 02/21/19 08:13 Intake & Output 02/20/19 02/21/19 02/22/19 06:59 06:59 06:59 Intake Total 2000 Output Total 950 Balance 1050 Weight 97.522 kg General appearance: PRESENT: no acute distress, cooperative, well-developed Head exam: PRESENT: atraumatic, normocephalic Eye exam: PRESENT: conjunctiva pink, EOMI. ABSENT: conjunctival injection, scleral icterus Ear exam: PRESENT: normal external ear exam Mouth exam: PRESENT: dry mucosa, tongue midline Neck exam: ABSENT: carotid bruit, JVD, lymphadenopathy Respiratory exam: PRESENT: clear to auscultation souleymane, symmetrical, unlabored. ABSENT: accessory muscle use, rales, rhonchi, tachypnea, wheezes Cardiovascular exam: PRESENT: RRR, +S1, +S2. ABSENT: diastolic murmur, systolic murmur Pulses: PRESENT: normal radial pulses, +2 pedal pulses bilateral GI/Abdominal exam: PRESENT: distended, hypoactive bowel sounds, soft, tenderness - diffuse generalized tenderness. Multiple incisions from robatic prostatectamy. ABSENT: guarding Rectal exam: ABSENT: deferred Gentrourinary exam: PRESENT: indwelling catheter. ABSENT: erythema, scrotal swelling Extremities exam: ABSENT: calf tenderness, joint swelling, pedal edema Musculoskeletal exam: PRESENT: normal inspection Neurological exam: PRESENT: alert, awake, oriented to person, oriented to place, oriented to time, oriented to situation, CN II-XII grossly intact Psychiatric exam: PRESENT: appropriate affect, normal mood. ABSENT: agitated, anxious Focused psych exam: ABSENT: delusional, restlessness Skin exam: PRESENT: dry, warm. ABSENT: rash Results Laboratory Results: 02/21/19 09:45 02/21/19 09:45 02/21/19 02/21/19 02/21/19 09:45 09:45 09:45 WBC 8.0 RBC 4.88 Hgb 14.5 Hct 43.3 MCV 89 MCH 29.7 MCHC 33.5 RDW 13.3 Plt Count 273 Seg Neutrophils % 75.4 Lymphocytes % 12.4 L Monocytes % 9.4 Eosinophils % 2.2 Basophils % 0.6 Absolute Neutrophils 6.1 Absolute Lymphocytes 1.0 Absolute Monocytes 0.8 Absolute Eosinophils 0.2 Absolute Basophils 0.0 Sodium 147.6 H Potassium 4.4 Chloride 104 Carbon Dioxide 30 Anion Gap 14 BUN 35 H Creatinine 5.03 H Est GFR ( Amer) 15 L Est GFR (Non-Af Amer) 13 L Glucose 102 Calcium 9.9 Total Bilirubin 0.6 AST 22 ALT 24 Alkaline Phosphatase 67 Total Protein 7.3 Albumin 4.0 Urine Color STRAW Urine Appearance CLEAR Urine pH 6.0 Ur Specific [place] 1.005 Urine Protein NEGATIVE Urine Glucose (UA) NEGATIVE Urine Ketones NEGATIVE Urine Blood MODERATE H Urine Nitrite NEGATIVE Ur Leukocyte Esterase TRACE H Urine WBC (Auto) 8 Urine RBC (Auto) 2 02/21/19 09:45 Creatine Kinase 103 Impressions: Acute Abdomen Series 02/21/19 10:39 IMPRESSION: Marked constipation. Extensive gas in the abdominal wall likely related to recent surgery. Abdomen/Pelvis CT 02/21/19 14:27 IMPRESSION: Postsurgical changes from robotic prostatectomy. No CT evidence of hydronephrosis, hydroureter or urinary stones. Escalera catheter in good positioning in the bladder. Moderate stool throughout the colon Incidental finding of a congenital foregut malrotation without bowel obstruction Assessment and Plan - Diagnosis (1) Acute renal failure Qualifiers: Acute renal failure type: unspecified Qualified Code(s): N17.9 - Acute kidney failure, unspecified Is this a current diagnosis for this admission?: Yes Plan: Diagnostic imaging revealed no anatomical changes in the kidneys. The collectio n system was intact. It is likely decreased fluid intake postoperatively. With the volume of constipation and decreased appetite he likely has not had significant oral intake. The patient will be admitted and given aggressive intravenous fluids. We will recheck his serum chemistries tonight and then again in the morning. I explained to the patient that it will likely take 2 to 3 days before his serum creatinine normalizes enough to be sent home. (2) Constipation Qualifiers: Constipation type: drug induced constipation Qualified Code(s): K59.03 - Drug induced constipation Is this a current diagnosis for this admission?: Yes Plan: The patient was on narcotic therapy for his postoperative pain. He has not had a bowel movement since his surgery. His last bowel movement was in fact prior to the surgery. I explained to the patient that because his colon has so much stool will need to work from below and above. I have ordered to collect suppositories as well as oral preparations for his constipation. Normally he moves his bowels daily. With the likelihood of some ongoing analgesia we will recommend a daily regimen at discharge. (3) Nausea and vomiting Qualifiers: Vomiting type: unspecified Vomiting Intractability: non-intractable Qualified Code(s): R11.2 - Nausea with vomiting, unspecified Is this a current diagnosis for this admission?: Yes Plan: Likely combination of the prolonged constipation and acute kidney injury. Antiemetics will be available. He should feel better with a combination of IV fluids and bowel movements. (4) S/P prostatectomy Is this a current diagnosis for this admission?: Yes Plan: The patient underwent robotic prostatectomy for stage I prostate cancer. He has a follow-up with his urologist on February [address] scan revealed some soft tissue gas present that is consistent with his surgery. His Escalera catheter will remain in place until his follow-up visit with the urologist. Any postoperative therapy for his prostate cancer will be executed by his urologist. - Time Time Spent with patient: 35 or more minutes Medications reviewed and adjusted accordingly: Yes Anticipated discharge: Home - Inpatient Certification Based on my medical assessment, after consideration of the patient's comorbidities, presenting symptoms, or acuity I expect that the services needed warrant INPATIENT care.: Yes I certify that my determination is in accordance with my understanding of Medicare's requirements for reasonable and necessary INPATIENT services [42 CFR 412.3e].: Yes Medical Necessity: Need Close Monitoring Due to Risk of Patient Decompensation, Need For IV Fluids, Need for Pain Control Post Hospital Care: D/C Supervisor Laundry Documentation
[2019-02-21] MEDS: HEPARIN SOD (PORCINE) 5,000 UNIT/ML 1 ML SYRINGE SUBCUT SCH (21:17)
[2019-02-21] MEDS: FAMOTIDINE 20 MG TABLET PO SCH (21:17)
[2019-02-21 21:39] LABS: ANION GAP 13 (5-19); BLOOD UREA NITROGEN 33 mg/dL (7-20); CARBON DIOXIDE 26 mmol/L (22-30); CHLORIDE 105 mmol/L (98-107); GLUCOSE 107 mg/dL (75-110); POTASSIUM 4.6 mmol/L (3.6-5.0); SODIUM 144.3 mmol/L (137-145)
[2019-02-22] MEDS: NORMAL SALINE 1000 ML 1,000 ML IV PRN (04:55)
[2019-02-22 06:41] LABS: ABSOLUTE BASOPHILS # (AUTO) 0.1 10^3/uL (0.0-0.2); ABSOLUTE EOSINOPHILS # (AUTO) 0.2 10^3/uL (0.0-0.6); ABSOLUTE LYMPHOCYTES (AUTO) 1.4 10^3/uL (0.5-4.7); ABSOLUTE NEUT (AUTO) 5.4 10^3/uL (1.7-8.2); BASOPHILS % (AUTO) 0.8 % (0-2); EOSINOPHILS % (AUTO) 2.5 % (0-6); HEMATOCRIT 35.7 % (37.9-51.0); LYMPHOCYTES % (AUTO) 17.1 % (13-45); MEAN CORPUSCULAR HEMOGLOBIN 29.6 pg (27.0-33.4); MEAN CORPUSCULAR HGB CONC 33.8 g/dL (32.0-36.0); MEAN CORPUSCULAR VOLUME 88 fl (80-97); MONOCYTES % (AUTO) 12.3 % (3-13); PLATELET COUNT 226 10^3/uL (150-450); RED BLOOD COUNT 4.08 10^6/uL (4.35-5.55); RED CELL DISTRIBUTION WIDTH 13.3 % (11.5-14.0); SEGMENTED NEUTROPHILS % (AUTO) 67.3 % (42-78); TOTAL CELLS COUNTED % (AUTO) 100 %
[2019-02-22 07:09] LABS: ANION GAP 7 (5-19); BLOOD UREA NITROGEN 30 mg/dL (7-20); CALCIUM 9.1 mg/dL (8.4-10.2); CARBON DIOXIDE 28 mmol/L (22-30); CHLORIDE 110 mmol/L (98-107); GLUCOSE 86 mg/dL (75-110); POTASSIUM 4.7 mmol/L (3.6-5.0); SODIUM 145.4 mmol/L (137-145)
[2019-02-22 07:10] LABS: HEMOGLOBIN 12.1 g/dL (13.5-17.0)
[2019-02-22] MEDS: HEPARIN SOD (PORCINE) 5,000 UNIT/ML 1 ML SYRINGE SUBCUT SCH ×3 (07:54→22:13)
[2019-02-22] MEDS ORDERED: PRILOCAINE TP SCH (10:00)
[2019-02-22] MEDS ORDERED: LIDOCAINE TP SCH (10:00)
[2019-02-22] MEDS: DOCUSATE SODIUM 100 MG CAPSULE PO SCH ×3 (10:35→17:24)
[2019-02-22] MEDS: FAMOTIDINE 20 MG TABLET PO SCH (10:40)
[2019-02-22] MEDS: METOPROLOL TARTRATE 25 MG TABLET PO SCH ×2 (10:42→22:14)
--- NOTE | 2019-02-22 10:51 | PDOC PROGRESS REPORT ---
Subjective Progress Note for:: 02/22/19 Subjective:: 43 year old male with a past medical history of myocardial infarction in 2010. Earlier this year he was having issues with urination. He did have a history of benign prostatic hypertrophy. His PSA was checked and his last PSA last year I believe was 2.0 and it was 10.0. He was diagnosed with a stage I prostate cancer and underwent robotic prostatectomy. He has been feeling poorly over the last several days. He did have some expected postoperative pain but he began to feel nauseated. He was taking scheduled oxycodone and using 800 mg ibuprofen tablets several times a day. He has not had a bowel movement since before the surgery. He also has some diffuse nonspecific discomfort across the abdomen. During his work-up it was found that his serum creatinine was greater than 5.0. His creatinine earlier this year was normal. His BUN was also elevated. The emergency department physician spoke with the patient's urologist. He requested a CT scan of the abdomen. CT scan reveals no abnormal pathology in the kidney and ureter. His Escalera catheter still in place from his surgery. There was stool throughout the colon. The urologist felt it was not necessary to transfer the patient to [facility] at this time. Because of his marked elevation in serum creatinine he was referred to the hospital service for admission. 02/22/[id number]-qecz-old male admitted for acute renal failure with creatinine of 6. He had a prostatic hypertrophy and elevated PSA diagnosed with stage I prostate cancer status post robotic prostatectomy. He does not have any bowel movement after the surgery. He is taking scheduled oxycodone and ibuprofen several times a day. Acute kidney injury may be secondary to ibuprofen use. CT abdomen pelvis was done in the emergency room no acute pathology was noted. No acute events in the last 24 hours afebrile. Patient still does not have any bowel movement even with mag citrate. Started on Fleet Enema today. comfortably in the bed communicating well. Reason For Visit: ABDOMINAL PAIN,ACUTE KIDNEY INJURY,OBSTIPATION Physical Exam Vital Signs: Temp Pulse Resp BP Pulse Ox 97.9 F 61 17 161/91 H 98 02/22/19 08:00 02/22/19 08:00 02/22/19 08:00 02/22/19 08:00 02/22/19 08:00 Intake & Output 02/21/19 02/22/19 02/23/19 06:59 06:59 06:59 Intake Total 3813 Output Total 2300 Balance 1513 Weight 103.2 kg General appearance: PRESENT: no acute distress, obese Head exam: PRESENT: atraumatic Eye exam: PRESENT: PERRLA Mouth exam: PRESENT: moist, tongue midline Teeth exam: PRESENT: poor dentation Respiratory exam: PRESENT: clear to auscultation souleymane. ABSENT: rales, rhonchi, wheezes Cardiovascular exam: PRESENT: RRR. ABSENT: diastolic murmur, rubs, systolic murmur GI/Abdominal exam: PRESENT: normal bowel sounds, soft. ABSENT: distended, guarding, mass, organolmegaly, rebound, tenderness Rectal exam: PRESENT: deferred Extremities exam: PRESENT: full ROM. ABSENT: calf tenderness, clubbing, pedal edema Neurological exam: PRESENT: alert, awake, oriented to person, oriented to place, oriented to time, oriented to situation, CN II-XII grossly intact. ABSENT: motor sensory deficit Psychiatric exam: PRESENT: appropriate affect, normal mood. ABSENT: homicidal ideation, suicidal ideation Results Laboratory Results: 02/22/19 05:54 02/22/19 05:54 02/21/19 02/22/19 02/22/19 21:00 05:54 05:54 WBC 8.0 RBC 4.08 L Hgb 12.1 L D Hct 35.7 L MCV 88 MCH 29.6 MCHC 33.8 RDW 13.3 Plt Count 226 Seg Neutrophils % 67.3 Lymphocytes % 17.1 Monocytes % 12.3 Eosinophils % 2.5 Basophils % 0.8 Absolute Neutrophils 5.4 Absolute Lymphocytes 1.4 Absolute Monocytes 1.0 Absolute Eosinophils 0.2 Absolute Basophils 0.1 Sodium 144.3 145.4 H Potassium 4.6 4.7 Chloride 105 110 H Carbon Dioxide 26 28 Anion Gap 13 7 BUN 33 H 30 H Creatinine 3.80 H 4.36 H Est GFR ( Amer) 21 L 18 L Est GFR (Non-Af Amer) 17 L 15 L Glucose 107 86 Calcium 8.0 L 9.1 Magnesium 2.6 H 02/21/19 09:45 Creatine Kinase 103 Impressions: Acute Abdomen Series 02/21/19 10:39 IMPRESSION: Marked constipation. Extensive gas in the abdominal wall likely related to recent surgery. Abdomen/Pelvis CT 02/21/19 14:27 IMPRESSION: Postsurgical changes from robotic prostatectomy. No CT evidence of hydronephrosis, hydroureter or urinary stones. Escalera catheter in good positioning in the bladder. 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 Renal consult was requested renal ultrasound was requested. We will continue the IV hydration therapy today. Acute kidney injury most likely secondary to poor oral intake. He is also came in with history of nausea and vomiting's. (2) Constipation Qualifiers: Constipation type: drug induced constipation Qualified Code(s): K59.03 - Drug induced constipation Is this a current diagnosis for this admission?: Yes Plan: The patient was on narcotic therapy for his postoperative pain. He has not had a bowel movement since his surgery. His last bowel movement was in fact prior to the surgery. I explained to the patient that because his colon has so much stool will need to work from below and above. I have ordered to collect suppositories as well as oral preparations for his constipation. Normally he moves his bowels daily. With the likelihood of some ongoing analgesia we will recommend a daily regimen at discharge. 02/22/2019-patient came in with history of constipation he has robotic prostatectomy was done 1 week ago after that he does not have any bowel movement at all. We did mag citrate did not help we are going to try Fleet Enema today. (3) Hypertension Is this a current diagnosis for this admission?: Yes (4) Nausea and vomiting Qualifiers: Vomiting type: unspecified Vomiting Intractability: non-intractable Qualified Code(s): R11.2 - Nausea with vomiting, unspecified Is this a current diagnosis for this admission?: Yes Plan: Likely combination of the prolonged constipation and acute kidney injury. An tiemetics will be available. He should feel better with a combination of IV fluids and bowel movements. 02/22/2019-patient came in with nausea and vomitings associated with acute kidney injury. Patient is presently on IV fluids and IV Zofran. Still does not have any bowel movement. Started on Fleet Enema from today. (5) S/P prostatectomy Is this a current diagnosis for this admission?: Yes Plan: The patient underwent robotic prostatectomy for stage I prostate cancer. He has a follow-up with his urologist on February [address] scan revealed some soft tissue gas present that is consistent with his surgery. His Escalera catheter will remain in place until his follow-up visit with the urologist. Any postoperative therapy for his prostate cancer will be executed by his urologist. 02/22/2019-patient has a recent robotic prostatectomy for stage I prostate cancer no problem with urination. CT abdomen was negative for acute pathology. - Time Time Spent with patient: 15-24 minutes Medications reviewed and adjusted accordingly: Yes Anticipated discharge: Home
[2019-02-22] MEDS: 1/2 NORMAL SALINE 1,000 ML IV PRN ×3 (11:00→23:05)
--- NOTE | 2019-02-22 11:07 | PDOC CONSULTATION ---
Consultation Consult Date: 02/22/19 Provider Consulted: SEBLE LEMOS Consult reason:: I was asked to see the patient because of acute kidney injury. History of Present Illness Admission Date/PCP: 02/21/19 15:35 BENJI MIRANDA MD History of Present Illness: JOSE MANUEL ZARCO JR is a 43 year old male with history of stage I prostate cancer, coronary artery disease, hypertension who presented to the emergency room because of abdominal pain, nausea and vomiting. Patient underwent robotic laparoscopic prostatectomy by Dr. Zaragoza at [facility] in [place] on 02/13/2019. He said the procedure itself was uneventful and he was discharged home the next day. Post surgery he was taking pain medications including OxyContin and baclofen. He admits that he was not drinking enough and he does not have a appetite eater so is not eating as much as well. He also has not had a bowel movement for the last 8 days since surgery. Yesterday he started having nausea and vomiting with abdominal discomfort so he decided to go to the emergency room. He denies any chest pains no shortness of breath. Initial evaluation showed elevated BUN of 35, creatinine of 5.03 with EGFR of 15. On November 10 his BUN was 21, creatinine of 1.21 and EGFR greater than 60 which is near normal. He also has borderline elevated sodium at 147.6, bicarbonate of 30 and hemoglobin of 14.5. His urinalysis was negative for protein, has some moderate blood with RBC of 2, only WBC of 8 with trace leukocyte esterase. He had a CT scan of the abdomen without contrast yesterday which showed postsurgical changes but no evidence of hydronephrosis, hydroureter or ureteral stones. There was moderate amount of stool. The emergency room provider contacted [facility] and deemed that the patient does not need to be transferred. In the emergency room he was given IV fluid boluses with 0.9 normal saline x2 L. IV fluids are still going at 200 mL an hour. Since admission he made 2300 mL of urine. He said he is drinking water may be about 2 to 3 L since he came in. Today his BUN is 30, creatinine of 4.36 and EGFR of 18. Hemoglobin is now 12.1, sodium of 145.4. He was given magnesium citrate in the emergency room and made a little movement but still feeling bloated. Past Medical History Cardiac Medical History: Reports: Coronary Artery Disease, Hyperlipidemia, Hyper tension-primary, Myocardial Infarction - 2011 Malignancy Medical History: Reports: Other - Stage I prostate cancer, status post robotic laparoscopic prostatectomy Musculoskeltal Medical History: Reports: Arthritis Past Surgical History Past Surgical History: Reports: Cardiac Catheterization, Orthopedic Surgery - RIGHT WRIST, Other - Robotic laparoscopic prostatectomy, 02/13/[address] 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 [employer] Lives with: Spouse/Significant other Smoking Status: Never Smoker Frequency of Alcohol Use: None Hx Recreational Drug Use: No Hx Prescription Drug Abuse: No - Advance Directive Resuscitation Status: Full Code Family History Family History: CAD - Maternal grandmother and maternal uncle, DM - Sister, Hypertension - Mother, Malignancy - Breast cancer in his sister, father has lung cancer Parental Family History Reviewed: Yes Children Family History Reviewed: Yes Sibling(s) Family History Reviewed.: Yes Medication/Allergy Home Medications: Docusate Sodium [Colace 100 mg Capsule] 100 mg PO BID 02/21/19 Lidocaine/Prilocaine [Lidopril 2.5%-2.5% Cream-Dress] 1 each TP QID 02/21/19 Lisinopril [Prinivil 10 mg Tablet] 10 mg PO DAILY 02/21/19 Metoprolol Tartrate [Lopressor 25 mg Tablet] 25 mg PO Q12 02/21/19 Allergies/Adverse Reactions: No Known Drug Allergies Allergy (Verified 02/21/19 08:06) Review of Systems All systems: reviewed and no additional remarkable complaints except as stated Review of Systems: Constitutional: ABSENT: chills, fatigue, fever(s), headache(s), weight gain, weight loss; decreased appetite Eyes: ABSENT: visual disturbances Ears: ABSENT: hearing changes Cardiovascular: ABSENT: chest pain, dyspnea on exertion, edema, orthropnea, palpitations Respiratory: ABSENT: cough, dyspnea, hemoptysis Gastrointestinal: ABSENT: Diarrhea, hematemesis, hematochezia; admits abdominal discomfort, constipation nausea, and vomiting Genitourinary: ABSENT: dysuria, hematuria Musculoskeletal: ABSENT: joint swelling Integumentary: ABSENT: rash, wounds Neurological: ABSENT: abnormal gait, abnormal speech, confusion, dizziness, focal weakness, numbness, syncope Psychiatric: ABSENT: anxiety, depression Endocrine: ABSENT: cold intolerance, heat intolerance, polydipsia, polyuria Hematologic/Lymphatic: ABSENT: easy bleeding, easy bruising, lymphadenopathy Physical Exam Vital Signs: Temp Pulse Resp BP Pulse Ox 97.9 F 61 17 161/91 H 98 02/22/19 08:00 02/22/19 08:00 02/22/19 08:00 02/22/19 08:00 02/22/19 08:00 Intake & Output 02/21/19 02/22/19 02/23/19 06:59 06:59 06:59 Intake Total 3813 Output Total 2300 Balance 1513 Weight 103.2 kg Exam: General appearance: No acute distress, cooperative, well-developed, well- nourished Head exam: PRESENT: atraumatic, normocephalic Eye exam: PRESENT: Conjunctiva [place], EOMI, PERRLA. ABSENT: conjunctival injection, scleral icterus Mouth exam: PRESENT: moist, neck supple, tongue midline Neck exam: PRESENT: full ROM. ABSENT: carotid bruit, JVD, lymphadenopathy, thyromegaly Respiratory exam: PRESENT: clear to auscultation bilaterally. ABSENT: rales, rhonchi, stridor, wheezes Cardiovascular exam: PRESENT: RRR, +S1, +S2. ABSENT: systolic murmur Pulses: PRESENT: normal radial pulses, normal dorsalis pedis pulses GI/Abdominal exam: PRESENT: Hyperactive bowel sounds, soft. Positive tenderness around the surgical incision areas in the middle of the abdomen ABSENT: guarding, mass Rectal exam: Deferred Extremities exam: PRESENT: full ROM. ABSENT: calf tenderness, pedal edema Musculoskeletal: PRESENT: full ROM. ABSENT: deformity Neurological exam: PRESENT: alert, Awake, Oriented to person, Oriented to place, Oriented to time, reflexes normal, CN II-XII grossly intact. ABSENT: motor sensory deficit Psychiatric exam: PRESENT: appropriate affect, normal mood. ABSENT: homicidal ideation, suicidal ideation Skin exam: PRESENT: intact, dry, warm. ABSENT: rash Results Laboratory Results: 02/22/19 05:54 02/22/19 05:54 02/21/19 02/22/19 02/22/19 21:00 05:54 05:54 WBC 8.0 RBC 4.08 L Hgb 12.1 L D Hct 35.7 L MCV 88 MCH 29.6 MCHC 33.8 RDW 13.3 Plt Count 226 Seg Neutrophils % 67.3 Lymphocytes % 17.1 Monocytes % 12.3 Eosinophils % 2.5 Basophils % 0.8 Absolute Neutrophils 5.4 Absolute Lymphocytes 1.4 Absolute Monocytes 1.0 Absolute Eosinophils 0.2 Absolute Basophils 0.1 Sodium 144.3 145.4 H Potassium 4.6 4.7 Chloride 105 110 H Carbon Dioxide 26 28 Anion Gap 13 7 BUN 33 H 30 H Creatinine 3.80 H 4.36 H Est GFR ( Amer) 21 L 18 L Est GFR (Non-Af Amer) 17 L 15 L Glucose 107 86 Calcium 8.0 L 9.1 Magnesium 2.6 H 02/21/19 09:45 Creatine Kinase 103 Impressions: Acute Abdomen Series 02/21/19 10:39 IMPRESSION: Marked constipation. Extensive gas in the abdominal wall likely related to recent surgery. Abdomen/Pelvis CT 02/21/19 14:27 IMPRESSION: Postsurgical changes from robotic prostatectomy. No CT evidence of hydronephrosis, hydroureter or urinary stones. Escalera catheter in good positioning in the bladder. 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 Most likely secondary to prerenal azotemia due to dehydration due to poor oral intake post prostatectomy. Agree with holding lisinopril. Avoid any other nephrotoxic medications. Monitor kidney function and electrolytes daily. Continue IV fluid hydration but will change the IV fluids 0.45 saline to run at 200 mL an hour. Monitor urine output. Patient does not need any renal replacement therapy at this point. (2) Dehydration Is this a current diagnosis for this admission?: Yes Plan: Continue IV hydration. (3) Abdominal pain Is this a current diagnosis for this admission?: Yes Plan: Likely due to a combination of surgical incision and constipation. (4) Constipation Qualifiers: Constipation type: drug induced constipation Qualified Code(s): K59.03 - Drug induced constipation Is this a current diagnosis for this admission?: Yes Plan: Defer to hospitalist. (5) Hypernatremia Is this a current diagnosis for this admission?: Yes Plan: Continue IV hydration and encourage oral fluid intake including water. (6) Hypertension Is this a current diagnosis for this admission?: Yes Plan: Hold lisinopril, agree with metoprolol. (7) S/P prostatectomy Is this a current diagnosis for this admission?: Yes - Notes Notes: Assessment and plan discussed with patient, spouse at bedside and Dr. Reyes. Thank you very much for this consultation. We will follow the patient with you. - Time Time Spent: 50 to 70 Minutes
[2019-02-22] MEDS ORDERED: ONDANSETRON 4 MG TAB.RAPDIS PO PRN (12:00)
--- NOTE | 2019-02-22 17:20 | RADIOLOGY REPORT (SQ) ---
EXAM DESCRIPTION: U/S RETROPERITON LTD COMPLETED DATE/TIME: 02/22/2019 5:06 pm REASON FOR STUDY: renal failure COMPARISON: None. TECHNIQUE: Dynamic and static grayscale images acquired of the kidneys and bladder and recorded on P ACS. Additional selected color Doppler and spectral images recorded. LIMITATIONS: None. FINDINGS: RIGHT KIDNEY: Normal size, 11 cm. Normal echogenicity. No solid or suspicious masses. No hydronephrosis. No calcifications. LEFT KIDNEY: Normal size, 11.4 cm. Normal echogenicity. No solid or suspicious masses. No hydr onephrosis. No calcifications. BLADDER: A catheter is present in the bladder. Not evaluated. OTHER FINDINGS: No other significant finding. IMPRESSION: Normal renal ultrasound. TECHNICAL DOCUMENTATION: JOB ID: [id number] [employer]- All Rights Reserved Reading location - IP/workstation name: [email or web address]
[2019-02-22] MEDS: NA PHOS,M-B/NA PHOS,DI-BA (ADULT) 133 ML ENEMA PR SCH (22:14)
[2019-02-22] MEDS: ACETAMINOPHEN 325 MG TABLET PO PRN (23:07)
[2019-02-23] MEDS: HEPARIN SOD (PORCINE) 5,000 UNIT/ML 1 ML SYRINGE SUBCUT SCH ×3 (05:21→21:04)
[2019-02-23 06:18] LABS: ABSOLUTE BASOPHILS # (AUTO) 0.1 10^3/uL (0.0-0.2); ABSOLUTE EOSINOPHILS # (AUTO) 0.3 10^3/uL (0.0-0.6); ABSOLUTE LYMPHOCYTES (AUTO) 1.5 10^3/uL (0.5-4.7); ABSOLUTE MONOCYTES (AUTO) 0.8 10^3/uL (0.1-1.4); ABSOLUTE NEUT (AUTO) 4.3 10^3/uL (1.7-8.2); EOSINOPHILS % (AUTO) 3.6 % (0-6); HEMATOCRIT 35.3 % (37.9-51.0); HEMOGLOBIN 11.8 g/dL (13.5-17.0); LYMPHOCYTES % (AUTO) 21.2 % (13-45); MEAN CORPUSCULAR HEMOGLOBIN 29.4 pg (27.0-33.4); MEAN CORPUSCULAR HGB CONC 33.4 g/dL (32.0-36.0); MEAN CORPUSCULAR VOLUME 88 fl (80-97); PLATELET COUNT 197 10^3/uL (150-450); RED BLOOD COUNT 4.01 10^6/uL (4.35-5.55); RED CELL DISTRIBUTION WIDTH 13.1 % (11.5-14.0); SEGMENTED NEUTROPHILS % (AUTO) 62.2 % (42-78); TOTAL CELLS COUNTED % (AUTO) 100 %
[2019-02-23 06:42] LABS: ALANINE AMINOTRANSFERASE 25 U/L (21-72); ALBUMIN 3.2 g/dL (3.5-5.0); ALKALINE PHOSPHATASE 50 U/L (38-126); ANION GAP 11 (5-19); ASPARTATE AMINO TRANSFERASE 16 U/L (17-59); BILIRUBIN,DIRECT 0.2 mg/dL (0.0-0.4); BILIRUBIN,TOTAL 0.6 mg/dL (0.2-1.3); BLOOD UREA NITROGEN 30 mg/dL (7-20); CALCIUM 9.1 mg/dL (8.4-10.2); CARBON DIOXIDE 25 mmol/L (22-30); CHLORIDE 106 mmol/L (98-107); GLUCOSE 79 mg/dL (75-110); POTASSIUM 4.5 mmol/L (3.6-5.0); SODIUM 142.1 mmol/L (137-145); TOTAL PROTEIN 5.7 g/dL (6.3-8.2)
[2019-02-23] MEDS: 1/2 NORMAL SALINE 1,000 ML IV PRN ×3 (09:39→21:07)
[2019-02-23] MEDS: DOCUSATE SODIUM 100 MG CAPSULE PO SCH ×2 (09:40→17:35)
[2019-02-23] MEDS: METOPROLOL TARTRATE 25 MG TABLET PO SCH ×2 (09:40→21:03)
[2019-02-23] MEDS: FAMOTIDINE 20 MG TABLET PO SCH (09:41)
[2019-02-23] MEDS: NA PHOS,M-B/NA PHOS,DI-BA (ADULT) 133 ML ENEMA PR SCH (10:00)
--- NOTE | 2019-02-23 10:06 | PDOC PROGRESS REPORT ---
Subjective Progress Note for:: 02/23/19 Subjective:: Patient is doing fine. He is passing urine and made about 2375 mL for the last 24 hours. He does not have any nausea, vomiting and only has some soreness over the incision sites on his abdomen. He had fluid enema and finally had some bowel movement. He complains of some low back pain. Reason For Visit: ABDOMINAL PAIN,ACUTE KIDNEY INJURY,OBSTIPATION Physical Exam Vital Signs: Temp Pulse Resp BP Pulse Ox 98.1 F 52 L 16 170/95 H 97 02/23/19 07:15 02/23/19 07:15 02/23/19 07:15 02/23/19 07:15 02/23/19 07:15 Intake & Output 02/22/19 02/23/19 02/24/19 06:59 06:59 06:59 Intake Total 3813 7130 Output Total 2300 2375 Balance 1513 4755 Weight 103.2 kg 108 kg Exam: General appearance: PRESENT: no acute distress, cooperative, well-developed, well-nourished Head exam: PRESENT: atraumatic, normocephalic Eye exam: PRESENT: conjunctiva pink, PERRLA. ABSENT: scleral icterus Neck exam: ABSENT: JVD Respiratory exam: PRESENT: Normal breath sounds. ABSENT: crackles, rales, rhonchi, unlabored, wheezes Cardiovascular exam: PRESENT: Regular rate rhythm -+S1, +S2. ABSENT: diastolic murmur, systolic murmur GI/Abdominal exam: PRESENT: normal bowel sounds, soft. Some soreness over the surgical incisions sites ABSENT: guarding, mass, tenderness Extremities exam: ABSENT: No edema Neurological exam: PRESENT: alert, awake, oriented to person, place and time. Skin exam: PRESENT: dry, warm, Results Laboratory Results: 02/23/19 05:42 02/23/19 05:42 02/23/19 02/23/19 05:42 05:42 WBC 7.0 RBC 4.01 L Hgb 11.8 L Hct 35.3 L MCV 88 MCH 29.4 MCHC 33.4 RDW 13.1 Plt Count 197 Seg Neutrophils % 62.2 Lymphocytes % 21.2 Monocytes % 12.0 Eosinophils % 3.6 Basophils % 1.0 Absolute Neutrophils 4.3 Absolute Lymphocytes 1.5 Absolute Monocytes 0.8 Absolute Eosinophils 0.3 Absolute Basophils 0.1 Sodium 142.1 Potassium 4.5 Chloride 106 Carbon Dioxide 25 Anion Gap 11 BUN 30 H Creatinine 3.87 H Est GFR ( Amer) 21 L Est GFR (Non-Af Amer) 17 L Glucose 79 Calcium 9.1 Magnesium 2.5 H Total Bilirubin 0.6 AST 16 L ALT 25 Alkaline Phosphatase 50 Total Protein 5.7 L Albumin 3.2 L 02/21/19 09:45 Creatine Kinase 103 Impressions: Acute Abdomen Series 02/21/19 10:39 IMPRESSION: Marked constipation. Extensive gas in the abdominal wall likely related to recent surgery. Abdomen/Pelvis CT 02/21/19 14:27 IMPRESSION: Postsurgical changes from robotic prostatectomy. No CT evidence of hydronephrosis, hydroureter or urinary stones. Esclaera catheter in good positioning in the bladder. 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 Assessment & Plan - Diagnosis (1) Acute kidney injury Is this a current diagnosis for this admission?: Yes Plan: Likely secondary to prerenal azotemia. Kidney ultrasound is normal without any nephrosis. Currently nonoliguric. Kidney function is slowly improving. Continue IV fluid hydration and monitoring kidney function. No need of renal replacement therapy at this time. (2) Dehydration Is this a current diagnosis for this admission?: Yes (3) Abdominal pain Is this a current diagnosis for this admission?: Yes (4) Constipation Qualifiers: Constipation type: drug induced constipation Qualified Code(s): K59.03 - Drug induced constipation Is this a current diagnosis for this admission?: Yes Plan: Improved with fluid enema yesterday. (5) Hypernatremia Is this a current diagnosis for this admission?: Yes Plan: Resolved. (6) Hypertension Is this a current diagnosis for this admission?: Yes Plan: Labile. Continue management. (7) S/P prostatectomy Is this a current diagnosis for this admission?: Yes Plan: [facility] [facility]. Patient has stage I prostate cancer. Patient supposed to be on Escalera catheter until follow-up with Dr. Zaragoza scheduled on 02/28/2019. - Time Time with patient: 15-25 minutes
[2019-02-23] MEDS ORDERED: PEG 3350/NA SULF,BICARB,CL/KCL 4000 ML PO ONE (11:30)
--- NOTE | 2019-02-23 11:44 | PDOC PROGRESS REPORT ---
Subjective Progress Note for:: 02/23/19 Subjective:: 43 year old male with a past medical history of myocardial infarction in 2010. Earlier this year he was having issues with urination. He did have a history of benign prostatic hypertrophy. His PSA was checked and his last PSA last year I believe was 2.0 and it was 10.0. He was diagnosed with a stage I prostate cancer and underwent robotic prostatectomy. He has been feeling poorly over the last several days. He did have some expected postoperative pain but he began to feel nauseated. He was taking scheduled oxycodone and using 800 mg ibuprofen tablets several times a day. He has not had a bowel movement since before the surgery. He also has some diffuse nonspecific discomfort across the abdomen. During his work-up it was found that his serum creatinine was greater than 5.0. His creatinine earlier this year was normal. His BUN was also elevated. The emergency department physician spoke with the patient's urologist. He requested a CT scan of the abdomen. CT scan reveals no abnormal pathology in the kidney and ureter. His Escalera catheter still in place from his surgery. There was stool throughout the colon. The urologist felt it was not necessary to transfer the patient to [facility] at this time. Because of his marked elevation in serum creatinine he was referred to the hospital service for admission. 02/22/[id number]-jaan-old male admitted for acute renal failure with creatinine of 6. He had a prostatic hypertrophy and elevated PSA diagnosed with stage I prostate cancer status post robotic prostatectomy. He does not have any bowel movement after the surgery. He is taking scheduled oxycodone and ibuprofen several times a day. Acute kidney injury may be secondary to ibuprofen use. CT abdomen pelvis was done in the emergency room no acute pathology was noted. No acute events in the last 24 hours afebrile. Patient still does not have any bowel movement even with mag citrate. Started on Fleet Enema today. comfortably in the bed communicating well. 02/[id number]-grgm-old male with recent history of prostatectomy with Escalera's catheter admitted for acute renal failure. Admission creatinine is around 5. Nephrology consult was done creatinine today 3.87. Urinary output is 2.3 L in the last 24 hours. Renal ultrasound is negative for obstruction. Patient complaining of severe constipation after giving the edema he had bowel movements yesterday. He is going to give GoLYTELY today because patient is refusing any me again. Reason For Visit: ABDOMINAL PAIN,ACUTE KIDNEY INJURY,OBSTIPATION Physical Exam Vital Signs: Temp Pulse Resp BP Pulse Ox 98.1 F 52 L 16 170/95 H 97 02/23/19 07:15 02/23/19 07:15 02/23/19 07:15 02/23/19 07:15 02/23/19 07:15 Intake & Output 02/22/19 02/23/19 02/24/19 06:59 06:59 06:59 Intake Total 3813 7130 Output Total 2300 4825 Balance 1513 1095 Weight 103.2 kg 108 kg General appearance: PRESENT: no acute distress Head exam: PRESENT: atraumatic Eye exam: PRESENT: PERRLA Ear exam: PRESENT: normal external ear exam Mouth exam: PRESENT: moist, tongue midline Teeth exam: PRESENT: poor dentation Neck exam: ABSENT: carotid bruit, JVD, lymphadenopathy, thyromegaly Respiratory exam: PRESENT: decreased breath sounds Cardiovascular exam: PRESENT: RRR. ABSENT: diastolic murmur, rubs, systolic murmur GI/Abdominal exam: PRESENT: normal bowel sounds, soft. ABSENT: distended, guarding, mass, organolmegaly, rebound, tenderness Rectal exam: PRESENT: deferred Gentrourinary exam: PRESENT: indwelling catheter Extremities exam: PRESENT: full ROM. ABSENT: calf tenderness, clubbing, pedal edema Neurological exam: PRESENT: alert, awake, oriented to person, oriented to place, oriented to time, oriented to situation, CN II-XII grossly intact. ABSENT: motor sensory deficit Psychiatric exam: PRESENT: appropriate affect, normal mood. ABSENT: homicidal ideation, suicidal ideation Results Laboratory Results: 02/23/19 05:42 02/23/19 05:42 02/23/19 02/23/19 05:42 05:42 WBC 7.0 RBC 4.01 L Hgb 11.8 L Hct 35.3 L MCV 88 MCH 29.4 MCHC 33.4 RDW 13.1 Plt Count 197 Seg Neutrophils % 62.2 Lymphocytes % 21.2 Monocytes % 12.0 Eosinophils % 3.6 Basophils % 1.0 Absolute Neutrophils 4.3 Absolute Lymphocytes 1.5 Absolute Monocytes 0.8 Absolute Eosinophils 0.3 Absolute Basophils 0.1 Sodium 142.1 Potassium 4.5 Chloride 106 Carbon Dioxide 25 Anion Gap 11 BUN 30 H Creatinine 3.87 H Est GFR ( Amer) 21 L Est GFR (Non-Af Amer) 17 L Glucose 79 Calcium 9.1 Magnesium 2.5 H Total Bilirubin 0.6 AST 16 L ALT 25 Alkaline Phosphatase 50 Total Protein 5.7 L Albumin 3.2 L 02/21/19 09:45 Creatine Kinase 103 Impressions: Acute Abdomen Series 02/21/19 10:39 IMPRESSION: Marked constipation. Extensive gas in the abdominal wall likely related to recent surgery. Abdomen/Pelvis CT 02/21/19 14:27 IMPRESSION: Postsurgical changes from robotic prostatectomy. No CT evidence of hydronephrosis, hydroureter or urinary stones. Escalera catheter in good positioning in the bladder. 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 Assessment and Plan - Diagnosis (1) Acute kidney injury Is this a current diagnosis for this admission?: Yes Plan: 02/[id number]-diqz-old male admitted with acute kidney injury admission creatinine was more than 5 with IV fluids it improved to 4.38. Renal consult was requested renal ultrasound was requested. We will continue the IV hydration therapy today. Acute kidney injury most likely secondary to poor oral intake. He is also came in with history of nausea and vomiting's. 02/23/2019-latest creatinine is 3.87 presently and a half normal saline at 200 cc/h. Renal ultrasound was negative for acute pathology. Urinary output is 2.3 L yesterday. He has a Escalera's catheter after recent prostatectomy. Nephrology on board. Plan is to continue the present management. (2) Constipation Qualifiers: Constipation type: drug induced constipation Qualified Code(s): K59.03 - Drug induced constipation Is this a current diagnosis for this admission?: Yes Plan: The patient was on narcotic therapy for his postoperative pain. He has not had a bowel movement since his surgery. His last bowel movement was in fact prior to the surgery. I explained to the patient that because his colon has so much stool will need to work from below and above. I have ordered to collect suppositories as well as oral preparations for his constipation. Normally he moves his bowels daily. With the likelihood of some ongoing analgesia we will recommend a daily regimen at discharge. 02/22/2019-patient came in with history of constipation he has robotic prostatectomy was done 1 week ago after that he does not have any bowel movement at all. We did mag citrate did not help we are going to try Fleet Enema today. 02/23/2019-constipation most likely secondary to pain medications. OxyContin was discontinued today. He had a bowel movement yesterday after edema but he said does not want any much would try golytly. (3) Hypertension Is this a current diagnosis for this admission?: Yes Plan: 02/23/2019-patient blood pressure today is 128/82. Stable. (4) Nausea and vomiting Qualifiers: Vomiting type: unspecified Vomiting Intractability: non-intractable Qualified Code(s): R11.2 - Nausea with vomiting, unspecified Is this a current diagnosis for this admission?: Yes Plan: Likely combination of the prolonged constipation and acute kidney injury. Ant iemetics will be available. He should feel better with a combination of IV fluids and bowel movements. 02/22/2019-patient came in with nausea and vomitings associated with acute kidney injury. Patient is presently on IV fluids and IV Zofran. Still does not have any bowel movement. Started on Fleet Enema from today. 02/23/2019-nausea vomiting resolved. Patient admitted with nausea vomiting pro bably secondary to severe constipation. Constipation is also resolving. (5) S/P prostatectomy Is this a current diagnosis for this admission?: Yes Plan: The patient underwent robotic prostatectomy for stage I prostate cancer. He has a follow-up with his urologist on February [address] scan revealed some soft tissue gas present that is consistent with his surgery. His Escalera catheter will remain in place until his follow-up visit with the urologist. Any postoperative therapy for his prostate cancer will be executed by his urologist. 02/22/2019-patient has a recent robotic prostatectomy for stage I prostate cancer no problem with urination. CT abdomen was negative for acute pathology. 02/23/2019-patient has recent robotic prostatectomy and he still have a Escalera's catheter. He has plans to follow-up with urologist on February 28 for the removal of the Escalera's catheter. In the meantime he wants to keep the Escalera catheter in. (6) Hypernatremia Is this a current diagnosis for this admission?: Yes Plan: 02/23/2019-serum sodium is 142 today presently on half normal saline at 200 cc/h hyponatremia resolved. (7) Obesity (BMI 30-39.9) Is this a current diagnosis for this admission?: No Plan: 02/23/2019-patient VT is more than 36 diet exercise weight loss lifestyle modifications are discussed with the patient. - Time Time Spent with patient: 25-34 minutes Smoking Cessation Education: over 10 minutes Medications reviewed and adjusted accordingly: Yes Anticipated discharge: Home
[2019-02-24] MEDS: ACETAMINOPHEN 325 MG TABLET PO PRN ×2 (01:10→16:42)
[2019-02-24] MEDS: 1/2 NORMAL SALINE 1,000 ML IV PRN ×3 (02:14→16:38)
[2019-02-24 05:29] LABS: ABSOLUTE BASOPHILS # (AUTO) 0.1 10^3/uL (0.0-0.2); ABSOLUTE EOSINOPHILS # (AUTO) 0.2 10^3/uL (0.0-0.6); ABSOLUTE LYMPHOCYTES (AUTO) 1.4 10^3/uL (0.5-4.7); ABSOLUTE MONOCYTES (AUTO) 0.8 10^3/uL (0.1-1.4); ABSOLUTE NEUT (AUTO) 4.1 10^3/uL (1.7-8.2); BASOPHILS % (AUTO) 1.2 % (0-2); EOSINOPHILS % (AUTO) 3.6 % (0-6); HEMATOCRIT 32.9 % (37.9-51.0); HEMOGLOBIN 11.2 g/dL (13.5-17.0); LYMPHOCYTES % (AUTO) 21.2 % (13-45); MEAN CORPUSCULAR HEMOGLOBIN 29.6 pg (27.0-33.4); MEAN CORPUSCULAR HGB CONC 33.9 g/dL (32.0-36.0); MEAN CORPUSCULAR VOLUME 87 fl (80-97); MONOCYTES % (AUTO) 11.6 % (3-13); PLATELET COUNT 203 10^3/uL (150-450); RED BLOOD COUNT 3.78 10^6/uL (4.35-5.55); RED CELL DISTRIBUTION WIDTH 13.4 % (11.5-14.0); SEGMENTED NEUTROPHILS % (AUTO) 62.4 % (42-78); TOTAL CELLS COUNTED % (AUTO) 100 %; WHITE BLOOD COUNT 6.6 10^3/uL (4.0-10.5)
[2019-02-24 05:59] LABS: ALANINE AMINOTRANSFERASE 26 U/L (21-72); ALBUMIN 3.1 g/dL (3.5-5.0); ALKALINE PHOSPHATASE 50 U/L (38-126); ANION GAP 12 (5-19); ASPARTATE AMINO TRANSFERASE 17 U/L (17-59); BILIRUBIN,DIRECT 0.3 mg/dL (0.0-0.4); BILIRUBIN,TOTAL 0.6 mg/dL (0.2-1.3); BLOOD UREA NITROGEN 33 mg/dL (7-20); CARBON DIOXIDE 24 mmol/L (22-30); CHLORIDE 106 mmol/L (98-107); GLUCOSE 76 mg/dL (75-110); POTASSIUM 4.6 mmol/L (3.6-5.0); SODIUM 142.4 mmol/L (137-145); TOTAL PROTEIN 5.7 g/dL (6.3-8.2)
[2019-02-24] MEDS: HEPARIN SOD (PORCINE) 5,000 UNIT/ML 1 ML SYRINGE SUBCUT SCH ×3 (06:33→22:29)
--- NOTE | 2019-02-24 10:10 | PDOC PROGRESS REPORT ---
Subjective Progress Note for:: 02/24/19 Subjective:: 43 year old male with a past medical history of myocardial infarction in 2010. Earlier this year he was having issues with urination. He did have a history of benign prostatic hypertrophy. His PSA was checked and his last PSA last year I believe was 2.0 and it was 10.0. He was diagnosed with a stage I prostate cancer and underwent robotic prostatectomy. He has been feeling poorly over the last several days. He did have some expected postoperative pain but he began to feel nauseated. He was taking scheduled oxycodone and using 800 mg ibuprofen tablets several times a day. He has not had a bowel movement since before the surgery. He also has some diffuse nonspecific discomfort across the abdomen. During his work-up it was found that his serum creatinine was greater than 5.0. His creatinine earlier this year was normal. His BUN was also elevated. The emergency department physician spoke with the patient's urologist. He requested a CT scan of the abdomen. CT scan reveals no abnormal pathology in the kidney and ureter. His Escalera catheter still in place from his surgery. There was stool throughout the colon. The urologist felt it was not necessary to transfer the patient to [facility] at this time. Because of his marked elevation in serum creatinine he was referred to the hospital service for admission. 02/22/[id number]-ldpu-old male admitted for acute renal failure with creatinine of 6. He had a prostatic hypertrophy and elevated PSA diagnosed with stage I prostate cancer status post robotic prostatectomy. He does not have any bowel movement after the surgery. He is taking scheduled oxycodone and ibuprofen several times a day. Acute kidney injury may be secondary to ibuprofen use. CT abdomen pelvis was done in the emergency room no acute pathology was noted. No acute events in the last 24 hours afebrile. Patient still does not have any bowel movement even with mag citrate. Started on Fleet Enema today. comfortably in the bed communicating well. 02/[id number]-old male with recent history of prostatectomy with Escalera's catheter admitted for acute renal failure. Admission creatinine is around 5. Nephrology consult was done creatinine today 3.87. Urinary output is 2.3 L in the last 24 hours. Renal ultrasound is negative for obstruction. Patient complaining of severe constipation after giving the edema he had bowel movements yesterday. He is going to give GoLYTELY today because patient is refusing any me again. 02/24/2019-no acute events in the last 24 hours. T-max is 99.2. Urinary output is more than 2.5 L. He still have the Escalera's catheter. Creatinine is improved to 3.2. Plan is to decrease the IV fluids 200 cc/h and recheck labs tomorrow. Reason For Visit: ABDOMINAL PAIN,ACUTE KIDNEY INJURY,OBSTIPATION Physical Exam Vital Signs: Temp Pulse Resp BP Pulse Ox 98.0 F 62 18 162/73 H 98 02/24/19 08:00 02/24/19 08:00 02/24/19 08:00 02/24/19 08:00 02/24/19 08:00 Intake & Output 02/23/19 02/24/19 02/25/19 06:59 06:59 06:59 Intake Total 7130 6502 1000 Output Total 2375 7100 Balance 4755 -598 1000 Weight 108 kg 108.3 kg General appearance: PRESENT: no acute distress, obese Head exam: PRESENT: atraumatic Eye exam: PRESENT: PERRLA Ear exam: PRESENT: normal external ear exam Neck exam: ABSENT: carotid bruit, JVD, lymphadenopathy, thyromegaly Respiratory exam: PRESENT: clear to auscultation souleymane. ABSENT: rales, rhonchi, wheezes Cardiovascular exam: PRESENT: RRR. ABSENT: diastolic murmur, rubs, systolic murmur GI/Abdominal exam: PRESENT: normal bowel sounds, soft. ABSENT: distended, guarding, mass, organolmegaly, rebound, tenderness Rectal exam: PRESENT: deferred Gentrourinary exam: PRESENT: indwelling catheter Neurological exam: PRESENT: alert, awake, oriented to person, oriented to place, oriented to time, oriented to situation, CN II-XII grossly intact. ABSENT: m otor sensory deficit Psychiatric exam: PRESENT: appropriate affect, normal mood. ABSENT: homicidal ideation, suicidal ideation Results Laboratory Results: 02/24/19 04:17 02/24/19 04:17 02/24/19 02/24/19 04:17 04:17 WBC 6.6 RBC 3.78 L Hgb 11.2 L Hct 32.9 L MCV 87 MCH 29.6 MCHC 33.9 RDW 13.4 Plt Count 203 Seg Neutrophils % 62.4 Lymphocytes % 21.2 Monocytes % 11.6 Eosinophils % 3.6 Basophils % 1.2 Absolute Neutrophils 4.1 Absolute Lymphocytes 1.4 Absolute Monocytes 0.8 Absolute Eosinophils 0.2 Absolute Basophils 0.1 Sodium 142.4 Potassium 4.6 Chloride 106 Carbon Dioxide 24 Anion Gap 12 BUN 33 H Creatinine 3.21 H Est GFR ( Amer) 26 L Est GFR (Non-Af Amer) 21 L Glucose 76 Calcium 9.0 Magnesium 2.3 Total Bilirubin 0.6 AST 17 ALT 26 Alkaline Phosphatase 50 Total Protein 5.7 L Albumin 3.1 L 02/21/19 09:45 Creatine Kinase 103 Impressions: Acute Abdomen Series 02/21/19 10:39 IMPRESSION: Marked constipation. Extensive gas in the abdominal wall likely related to recent surgery. Abdomen/Pelvis CT 02/21/19 14:27 IMPRESSION: Postsurgical changes from robotic prostatectomy. No CT evidence of hydronephrosis, hydroureter or urinary stones. Escalera catheter in good position ing in the bladder. 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 Assessment and Plan - Diagnosis (1) Acute kidney injury Is this a current diagnosis for this admission?: Yes Plan: 02/[id number]-wzmv-old male admitted with acute kidney injury admission creatinine was more than 5 with IV fluids it improved to 4.38. Renal consult was requested renal ultrasound was requested. We will continue the IV hydration therapy today. Acute kidney injury most likely secondary to poor oral intake. He is also came in with history of nausea and vomiting's. 02/23/2019-latest creatinine is 3.87 presently and a half normal saline at 200 cc/h. Renal ultrasound was negative for acute pathology. Urinary output is 2.3 L yesterday. He has a Escalera's catheter after recent prostatectomy. Nephrology on board. Plan is to continue the present management. 02/24/2019-today's creatinine is 3.2 improved from 3.8. Presently on a half normal saline at 200 cc/h plan is to decrease the fluid rate to 100 cc/h. Renal ultrasound is negative for acute pathology. Urinary output is more than 2.5 L. He still have the Escalera's catheter in place after a recent prostatectomy. Patient was to follow-up with urologist as an outpatient and further removal of the Escalera's catheter. (2) Constipation Qualifiers: Constipation type: drug induced constipation Qualified Code(s): K59.03 - Drug induced constipation Is this a current diagnosis for this admission?: Yes Plan: The patient was on narcotic therapy for his postoperative pain. He has not had a bowel movement since his surgery. His last bowel movement was in fact prior to the surgery. I explained to the patient that because his colon has so much stool will need to work from below and above. I have ordered to collect suppositories as well as oral preparations for his constipation. Normally he moves his bowels daily. With the likelihood of some ongoing analgesia we will recommend a daily regimen at discharge. 02/22/2019-patient came in with history of constipation he has robotic prostatectomy was done 1 week ago after that he does not have any bowel movement at all. We did mag citrate did not help we are going to try Fleet Enema today. 02/23/2019-constipation most likely secondary to pain medications. OxyContin was discontinued today. He had a bowel movement yesterday after edema but he said does not want any much would try golytly. 02/24/2019-after receiving GoLYTELY patient had regular bowel movements. Constipation is resolved. (3) Hypertension Is this a current diagnosis for this admission?: Yes Plan: 02/23/2019-patient blood pressure today is 128/82. Stable. 02/24/2019-patient blood pressure today is 157/80 stable. Plan is to continue the present management. (4) Nausea and vomiting Qualifiers: Vomiting type: unspecified Vomiting Intractability: non-intractable Daniel lified Code(s): R11.2 - Nausea with vomiting, unspecified Is this a current diagnosis for this admission?: Yes (5) S/P prostatectomy Is this a current diagnosis for this admission?: Yes (6) Hypernatremia Is this a current diagnosis for this admission?: Yes Plan: 02/23/2019-serum sodium is 142 today presently on half normal saline at 200 cc/h hyponatremia resolved. 02/24/2019-serum sodium level today is 142.4 hypernatremia resolved. (7) Obesity (BMI 30-39.9) Is this a current diagnosis for this admission?: No - Time Time Spent with patient: 15-24 minutes Medications reviewed and adjusted accordingly: Yes Anticipated discharge: Home
[2019-02-24] MEDS: FAMOTIDINE 20 MG TABLET PO SCH (10:11)
[2019-02-24] MEDS: DOCUSATE SODIUM 100 MG CAPSULE PO SCH ×2 (10:11→17:08)
[2019-02-24] MEDS ORDERED: HYDRALAZINE HCL INJ/PF 20 MG/1 ML SDV IV PRN (16:45)
[2019-02-24] MEDS ORDERED: DIPHENHYDRAMINE HCL 50 MG/ML VIAL ONE (19:25)
[2019-02-24] MEDS ORDERED: DIPHENHYDRAMINE HCL 50 MG/ML VIAL IV PRN (19:31)
[2019-02-25] MEDS: 1/2 NORMAL SALINE 1,000 ML IV PRN ×4 (02:21→22:22)
[2019-02-25 05:03] LABS: ABSOLUTE BASOPHILS # (AUTO) 0.1 10^3/uL (0.0-0.2); ABSOLUTE EOSINOPHILS # (AUTO) 0.3 10^3/uL (0.0-0.6); ABSOLUTE LYMPHOCYTES (AUTO) 1.2 10^3/uL (0.5-4.7); ABSOLUTE MONOCYTES (AUTO) 0.8 10^3/uL (0.1-1.4); ABSOLUTE NEUT (AUTO) 3.8 10^3/uL (1.7-8.2); BASOPHILS % (AUTO) 1.3 % (0-2); EOSINOPHILS % (AUTO) 5.2 % (0-6); HEMATOCRIT 36.3 % (37.9-51.0); HEMOGLOBIN 12.1 g/dL (13.5-17.0); LYMPHOCYTES % (AUTO) 19.4 % (13-45); MEAN CORPUSCULAR HEMOGLOBIN 29.2 pg (27.0-33.4); MEAN CORPUSCULAR HGB CONC 33.3 g/dL (32.0-36.0); MEAN CORPUSCULAR VOLUME 88 fl (80-97); PLATELET COUNT 199 10^3/uL (150-450); RED BLOOD COUNT 4.14 10^6/uL (4.35-5.55); RED CELL DISTRIBUTION WIDTH 13.5 % (11.5-14.0); SEGMENTED NEUTROPHILS % (AUTO) 61.1 % (42-78); TOTAL CELLS COUNTED % (AUTO) 100 %; WHITE BLOOD COUNT 6.2 10^3/uL (4.0-10.5)
[2019-02-25 05:32] LABS: ALANINE AMINOTRANSFERASE 21 U/L (21-72); ALBUMIN 3.5 g/dL (3.5-5.0); ALKALINE PHOSPHATASE 53 U/L (38-126); ANION GAP 10 (5-19); ASPARTATE AMINO TRANSFERASE 20 U/L (17-59); BILIRUBIN,DIRECT 0.2 mg/dL (0.0-0.4); BILIRUBIN,TOTAL 0.3 mg/dL (0.2-1.3); BLOOD UREA NITROGEN 29 mg/dL (7-20); CALCIUM 9.5 mg/dL (8.4-10.2); CARBON DIOXIDE 26 mmol/L (22-30); CHLORIDE 108 mmol/L (98-107); GLUCOSE 79 mg/dL (75-110); POTASSIUM 4.1 mmol/L (3.6-5.0); SODIUM 144.4 mmol/L (137-145); TOTAL PROTEIN 6.2 g/dL (6.3-8.2)
[2019-02-25] MEDS: HEPARIN SOD (PORCINE) 5,000 UNIT/ML 1 ML SYRINGE SUBCUT SCH ×3 (05:37→21:29)
[2019-02-25] MEDS: DOCUSATE SODIUM 100 MG CAPSULE PO SCH ×2 (09:38→17:10)
[2019-02-25] MEDS: FAMOTIDINE 20 MG TABLET PO SCH (09:38)
--- NOTE | 2019-02-25 10:18 | PDOC PROGRESS REPORT ---
Subjective Progress Note for:: 02/25/19 Subjective:: 43 year old male with a past medical history of myocardial infarction in 2010. Earlier this year he was having issues with urination. He did have a history of benign prostatic hypertrophy. His PSA was checked and his last PSA last year I believe was 2.0 and it was 10.0. He was diagnosed with a stage I prostate cancer and underwent robotic prostatectomy. He has been feeling poorly over the last several days. He did have some expected postoperative pain but he began to feel nauseated. He was taking scheduled oxycodone and using 800 mg ibuprofen tablets several times a day. He has not had a bowel movement since before the surgery. He also has some diffuse nonspecific discomfort across the abdomen. During his work-up it was found that his serum creatinine was greater than 5.0. His creatinine earlier this year was normal. His BUN was also elevated. The emergency department physician spoke with the patient's urologist. He requested a CT scan of the abdomen. CT scan reveals no abnormal pathology in the kidney and ureter. His Escalera catheter still in place from his surgery. There was stool throughout the colon. The urologist felt it was not necessary to transfer the patient to [place] at this time. Because of his marked elevation in serum creatinine he was referred to the hospital service for admission. 02/22/[id number]-ctsl-old male admitted for acute renal failure with creatinine of 6. He had a prostatic hypertrophy and elevated PSA diagnosed with stage I prostate cancer status post robotic prostatectomy. He does not have any bowel movement after the surgery. He is taking scheduled oxycodone and ibuprofen several times a day. Acute kidney injury may be secondary to ibuprofen use. CT abdomen pelvis was done in the emergency room no acute pathology was noted. No acute events in the last 24 hours afebrile. Patient still does not have any bowel movement even with mag citrate. Started on Fleet Enema today. comfortably in the bed communicating well. 02/[id number]-wsdi-old male with recent history of prostatectomy with Escalera's catheter admitted for acute renal failure. Admission creatinine is around 5. Nephrology consult was done creatinine today 3.87. Urinary output is 2.3 L in the last 24 hours. Renal ultrasound is negative for obstruction. Patient complaining of severe constipation after giving the edema he had bowel movements yesterday. He is going to give GoLYTELY today because patient is refusing any me again. 02/24/2019-no acute events in the last 24 hours. T-max is 99.2. Urinary output is more than 2.5 L. He still have the Escalera's catheter. Creatinine is improved to 3.2. Plan is to decrease the IV fluids 200 cc/h and recheck labs tomorrow. 02/25/2019-no acute events in the last 24 hours. Afebrile. Creatinine was improved to 3.01. Receiving IV fluids at 100 cc/h. To recheck the labs t omorrow. Renal ultrasound was negative for acute pathology. Patient was frustrated about slow recovery. Reason For Visit: ABDOMINAL PAIN,ACUTE KIDNEY INJURY,OBSTIPATION Physical Exam Vital Signs: Temp Pulse Resp BP Pulse Ox 98.1 F 49 L 17 151/77 H 99 02/25/19 08:00 02/25/19 08:00 02/25/19 08:00 02/25/19 08:00 02/25/19 08:00 Intake & Output 02/24/19 02/25/19 02/26/19 06:59 06:59 06:59 Intake Total 6502 5782 Output Total 7100 8234 Balance -598 -2493 Weight 108.3 kg 105.4 kg General appearance: PRESENT: no acute distress Head exam: PRESENT: atraumatic Mouth exam: PRESENT: moist, tongue midline Neck exam: ABSENT: carotid bruit, JVD, lymphadenopathy, thyromegaly Respiratory exam: PRESENT: decreased breath sounds Cardiovascular exam: PRESENT: RRR. ABSENT: diastolic murmur, rubs, systolic murmur GI/Abdominal exam: PRESENT: normal bowel sounds, soft. ABSENT: distended, guarding, mass, organolmegaly, rebound, tenderness Rectal exam: PRESENT: deferred Neurological exam: PRESENT: alert, awake, oriented to person, oriented to place, oriented to time, oriented to situation, CN II-XII grossly intact. ABSENT: motor sensory deficit Psychiatric exam: PRESENT: appropriate affect, normal mood. ABSENT: homicidal ideation, suicidal ideation Results Laboratory Results: 02/25/19 04:13 02/25/19 04:13 02/25/19 02/25/19 04:13 04:13 WBC 6.2 RBC 4.14 L Hgb 12.1 L Hct 36.3 L MCV 88 MCH 29.2 MCHC 33.3 RDW 13.5 Plt Count 199 Seg Neutrophils % 61.1 Lymphocytes % 19.4 Monocytes % 13.0 Eosinophils % 5.2 Basophils % 1.3 Absolute Neutrophils 3.8 Absolute Lymphocytes 1.2 Absolute Monocytes 0.8 Absolute Eosinophils 0.3 Absolute Basophils 0.1 Sodium 144.4 Potassium 4.1 Chloride 108 H Carbon Dioxide 26 Anion Gap 10 BUN 29 H Creatinine 3.06 H Est GFR ( Amer) 27 L Est GFR (Non-Af Amer) 22 L Glucose 79 Calcium 9.5 Magnesium 2.3 Total Bilirubin 0.3 AST 20 ALT 21 Alkaline Phosphatase 53 Total Protein 6.2 L Albumin 3.5 02/21/19 09:45 Creatine Kinase 103 Impressions: Acute Abdomen Series 02/21/19 10:39 IMPRESSION: Marked constipation. Extensive gas in the abdominal wall likely related to recent surgery. Abdomen/Pelvis CT 02/21/19 14:27 IMPRESSION: Postsurgical changes from robotic prostatectomy. No CT evidence of hydronephrosis, hydroureter or urinary stones. Escalera catheter in good positioning in the bladder. 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 Assessment and Plan - Diagnosis (1) Acute kidney injury Is this a current diagnosis for this admission?: Yes Plan: 02/[id number]-jynx-old male admitted with acute kidney injury admission creatinine was more than 5 with IV fluids it improved to 4.38. Renal consult was requested renal ultrasound was requested. We will continue the IV hydration therapy today. Acute kidney injury most likely secondary to poor oral intake. He is also came in with history of nausea and vomiting's. 02/23/2019-latest creatinine is 3.87 presently and a half normal saline at 200 cc/h. Renal ultrasound was negative for acute pathology. Urinary output is 2.3 L yesterday. He has a Escalera's catheter after recent prostatectomy. Nephrology on board. Plan is to continue the present management. 02/24/2019-today's creatinine is 3.2 improved from 3.8. Presently on a half normal saline at 200 cc/h plan is to decrease the fluid rate to 100 cc/h. Renal ultrasound is negative for acute pathology. Urinary output is more than 2.5 L. He still have the Escalera's catheter in place after a recent prostatectomy. Patient was to follow-up with urologist as an outpatient and further removal of the Escalera's catheter. 02/25/2019-today's creatinine is 3.01 slightly improved EGFR is 27. Presently on half normal saline 100 cc/h urinary output is more than 8 L yesterday. Patient has a recent history of prostatectomy and Escalera's catheter. Patient is frustrated and slow recovery of the kidney function. Plans to bump to bump the fluid up to 200 cc/h today recheck the labs tomorrow. (2) Constipation Qualifiers: Constipation type: drug induced constipation Qualified Code(s): K59.03 - Drug induced constipation Is this a current diagnosis for this admission?: Yes (3) Hypertension Is this a current diagnosis for this admission?: Yes Plan: 02/23/2019-patient blood pressure today is 128/82. Stable. 02/24/2019-patient blood pressure today is 157/80 stable. Plan is to continue the present management. 02/25/2019-patient blood pressure today is 150/96 stable patient received hydralazine IV for high blood pressure yesterday developed with throat swelling and discomfort hydralazine was discontinued he was given 50 Benadryl IV 1 dose no symptoms today. (4) Nausea and vomiting Qualifiers: Vomiting type: unspecified Vomiting Intractability: non-intractable Qualified Code(s): R11.2 - Nausea with vomiting, unspecified Is this a current diagnosis for this admission?: Yes (5) S/P prostatectomy Is this a current diagnosis for this admission?: Yes (6) Hypernatremia Is this a current diagnosis for this admission?: Yes Plan: 02/23/2019-serum sodium is 142 today presently on half normal saline at 200 cc/h hyponatremia resolved. 02/24/2019-serum sodium level today is 142.4 hypernatremia resolved. 02/25/2019-serum sodium is 144.2. Hyponatremia resolved. Patient is present on half-normal saline at 100 cc/h. (7) Obesity (BMI 30-39.9) Is this a current diagnosis for this admission?: No - Time Time Spent with patient: 15-24 minutes Medications reviewed and adjusted accordingly: Yes Anticipated discharge: Home
[2019-02-25] MEDS: ACETAMINOPHEN 325 MG TABLET PO PRN ×2 (15:49→22:21)
--- NOTE | 2019-02-25 17:33 | EKG REPORT ---
SEVERITY:- NORMAL ECG - SINUS RHYTHM : Confirmed by: Vivian Whelan MD 25-Feb-2019 17:32:29
[2019-02-26] MEDS: 1/2 NORMAL SALINE 1,000 ML IV PRN ×4 (04:03→23:13)
[2019-02-26] MEDS: HEPARIN SOD (PORCINE) 5,000 UNIT/ML 1 ML SYRINGE SUBCUT SCH ×3 (05:03→22:04)
[2019-02-26 05:28] LABS: ABSOLUTE BASOPHILS # (AUTO) 0.1 10^3/uL (0.0-0.2); ABSOLUTE EOSINOPHILS # (AUTO) 0.3 10^3/uL (0.0-0.6); ABSOLUTE LYMPHOCYTES (AUTO) 1.4 10^3/uL (0.5-4.7); ABSOLUTE MONOCYTES (AUTO) 0.7 10^3/uL (0.1-1.4); ABSOLUTE NEUT (AUTO) 4.1 10^3/uL (1.7-8.2); EOSINOPHILS % (AUTO) 4.1 % (0-6); HEMATOCRIT 34.3 % (37.9-51.0); HEMOGLOBIN 11.5 g/dL (13.5-17.0); LYMPHOCYTES % (AUTO) 21.7 % (13-45); MEAN CORPUSCULAR HEMOGLOBIN 29.1 pg (27.0-33.4); MEAN CORPUSCULAR HGB CONC 33.5 g/dL (32.0-36.0); MEAN CORPUSCULAR VOLUME 87 fl (80-97); MONOCYTES % (AUTO) 10.8 % (3-13); PLATELET COUNT 196 10^3/uL (150-450); RED BLOOD COUNT 3.95 10^6/uL (4.35-5.55); RED CELL DISTRIBUTION WIDTH 13.1 % (11.5-14.0); SEGMENTED NEUTROPHILS % (AUTO) 62.4 % (42-78); TOTAL CELLS COUNTED % (AUTO) 100 %; WHITE BLOOD COUNT 6.5 10^3/uL (4.0-10.5)
[2019-02-26 05:43] LABS: ALANINE AMINOTRANSFERASE 35 U/L (21-72); ALBUMIN 3.3 g/dL (3.5-5.0); ALKALINE PHOSPHATASE 57 U/L (38-126); ANION GAP 11 (5-19); ASPARTATE AMINO TRANSFERASE 32 U/L (17-59); BILIRUBIN,DIRECT 0.2 mg/dL (0.0-0.4); BILIRUBIN,TOTAL 0.4 mg/dL (0.2-1.3); BLOOD UREA NITROGEN 21 mg/dL (7-20); CALCIUM 9.2 mg/dL (8.4-10.2); CARBON DIOXIDE 25 mmol/L (22-30); CHLORIDE 106 mmol/L (98-107); GLUCOSE 81 mg/dL (75-110); POTASSIUM 4.1 mmol/L (3.6-5.0); SODIUM 142.3 mmol/L (137-145)
[2019-02-26] MEDS: DOCUSATE SODIUM 100 MG CAPSULE PO SCH ×2 (09:16→18:01)
[2019-02-26] MEDS: FAMOTIDINE 20 MG TABLET PO SCH (09:16)
--- NOTE | 2019-02-26 10:35 | PDOC PROGRESS REPORT ---
Subjective Progress Note for:: 02/26/19 Subjective:: 43 year old male with a past medical history of myocardial infarction in 2010. Earlier this year he was having issues with urination. He did have a history of benign prostatic hypertrophy. His PSA was checked and his last PSA last year I believe was 2.0 and it was 10.0. He was diagnosed with a stage I prostate cancer and underwent robotic prostatectomy. He has been feeling poorly over the last several days. He did have some expected postoperative pain but he began to feel nauseated. He was taking scheduled oxycodone and using 800 mg ibuprofen tablets several times a day. He has not had a bowel movement since before the surgery. He also has some diffuse nonspecific discomfort across the abdomen. During his work-up it was found that his serum creatinine was greater than 5.0. His creatinine earlier this year was normal. His BUN was also elevated. The emergency department physician spoke with the patient's urologist. He requested a CT scan of the abdomen. CT scan reveals no abnormal pathology in the kidney and ureter. His Escalera catheter still in place from his surgery. There was stool throughout the colon. The urologist felt it was not necessary to transfer the patient to [place] at this time. Because of his marked elevation in serum creatinine he was referred to the hospital service for admission. 02/22/[id number]-dlcd-old male admitted for acute renal failure with creatinine of 6. He had a prostatic hypertrophy and elevated PSA diagnosed with stage I prostate cancer status post robotic prostatectomy. He does not have any bowel movement after the surgery. He is taking scheduled oxycodone and ibuprofen several times a day. Acute kidney injury may be secondary to ibuprofen use. CT abdomen pelvis was done in the emergency room no acute pathology was noted. No acute events in the last 24 hours afebrile. Patient still does not have any bowel movement even with mag citrate. Started on Fleet Enema today. comfortably in the bed communicating well. 02/23/[id number]-kgld-old male with recent history of prostatectomy with Escalera's catheter admitted for acute renal failure. Admission creatinine is around 5. Nephrology consult was done creatinine today 3.87. Urinary output is 2.3 L in the last 24 hours. Renal ultrasound is negative for obstruction. Patient complaining of severe constipation after giving the edema he had bowel movements yesterday. He is going to give GoLYTELY today because patient is refusing any me again. 02/24/2019-no acute events in the last 24 hours. T-max is 99.2. Urinary output is more than 2.5 L. He still have the Escalera's catheter. Creatinine is improved to 3.2. Plan is to decrease the IV fluids 200 cc/h and recheck labs tomorrow. 02/25/2019-no acute events in the last 24 hours. Afebrile. Creatinine was improved to 3.01. Receiving IV fluids at 100 cc/h. To recheck the labs t omorrow. Renal ultrasound was negative for acute pathology. Patient was frustrated about slow recovery. 02/26/2019-no acute events in the last 24 hours. Patient is afebrile. No complaints from the patient. Creatinine improved to 2.44 today. Patient wants to stay at least another day and requesting the labs to be done tomorrow. Reason For Visit: ABDOMINAL PAIN,ACUTE KIDNEY INJURY,OBSTIPATION Physical Exam Vital Signs: Temp Pulse Resp BP Pulse Ox 98.4 F 59 L 16 163/83 H 99 02/26/19 07:55 02/26/19 07:55 02/26/19 07:55 02/26/19 07:55 02/26/19 07:55 Intake & Output 02/25/19 02/26/19 02/27/19 06:59 06:59 06:59 Intake Total 5782 8123 1000 Output Total 8275 53633 Balance -0102 -7998 1000 Weight 105.4 kg 105.4 kg General appearance: PRESENT: no acute distress, obese Head exam: PRESENT: atraumatic Eye exam: PRESENT: PERRLA Teeth exam: PRESENT: poor dentation Neck exam: ABSENT: carotid bruit, JVD, lymphadenopathy, thyromegaly Cardiovascular exam: PRESENT: RRR. ABSENT: diastolic murmur, rubs, systolic mu rmur GI/Abdominal exam: PRESENT: normal bowel sounds, soft. ABSENT: distended, guarding, mass, organolmegaly, rebound, tenderness Rectal exam: PRESENT: deferred Gentrourinary exam: PRESENT: indwelling catheter Neurological exam: PRESENT: alert, awake, oriented to person, oriented to place, oriented to time, oriented to situation, CN II-XII grossly intact. ABSENT: motor sensory deficit Psychiatric exam: PRESENT: appropriate affect, normal mood. ABSENT: homicidal ideation, suicidal ideation Results Laboratory Results: 02/26/19 04:08 02/26/19 04:08 02/26/19 02/26/19 04:08 04:08 WBC 6.5 RBC 3.95 L Hgb 11.5 L Hct 34.3 L MCV 87 MCH 29.1 MCHC 33.5 RDW 13.1 Plt Count 196 Seg Neutrophils % 62.4 Lymphocytes % 21.7 Monocytes % 10.8 Eosinophils % 4.1 Basophils % 1.0 Absolute Neutrophils 4.1 Absolute Lymphocytes 1.4 Absolute Monocytes 0.7 Absolute Eosinophils 0.3 Absolute Basophils 0.1 Sodium 142.3 Potassium 4.1 Chloride 106 Carbon Dioxide 25 Anion Gap 11 BUN 21 H Creatinine 2.44 H Est GFR ( Amer) 35 L Est GFR (Non-Af Amer) 29 L Glucose 81 Calcium 9.2 Magnesium 1.9 Total Bilirubin 0.4 AST 32 ALT 35 Alkaline Phosphatase 57 Total Protein 6.0 L Albumin 3.3 L 02/21/19 09:45 Creatine Kinase 103 Impressions: Acute Abdomen Series 02/21/19 10:39 IMPRESSION: Marked constipation. Extensive gas in the abdominal wall likely related to recent surgery. Abdomen/Pelvis CT 02/21/19 14:27 IMPRESSION: Postsurgical changes from robotic prostatectomy. No CT evidence of hydronephrosis, hydroureter or urinary stones. Escalera catheter in good positioning in the bladder. 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 Assessment and Plan - Diagnosis (1) Acute kidney injury Is this a current diagnosis for this admission?: Yes Plan: 02/22/[id number]-vnvi-old male admitted with acute kidney injury admission creatinine was more than 5 with IV fluids it improved to 4.38. Renal consult was requested renal ultrasound was requested. We will continue the IV hydration therapy today. Acute kidney injury most likely secondary to poor oral intake. He is also came in with history of nausea and vomiting's. 02/23/2019-latest creatinine is 3.87 presently and a half normal saline at 200 cc/h. Renal ultrasound was negative for acute pathology. Urinary output is 2.3 L yesterday. He has a Escalera's catheter after recent prostatectomy. Nephrology on board. Plan is to continue the present management. 02/24/2019-today's creatinine is 3.2 improved from 3.8. Presently on a half normal saline at 200 cc/h plan is to decrease the fluid rate to 100 cc/h. Renal ultrasound is negative for acute pathology. Urinary output is more than 2.5 L. He still have the Escalera's catheter in place after a recent prostatectomy. Patient was to follow-up with urologist as an outpatient and further removal of the Escalera's catheter. 02/25/2019-today's creatinine is 3.01 slightly improved EGFR is 27. Presently on half normal saline 100 cc/h urinary output is more than 8 L yesterday. Patient has a recent history of prostatectomy and Escalera's catheter. Patient is frustrated and slow recovery of the kidney function. Plans to bump to bump the fluid up to 200 cc/h today recheck the labs tomorrow. 02/26/[id number]-vsld-old male admitted with acute kidney injury most likely secondary to poor oral intake and also the recent prostatectomy may be a contributing factor. Admitted with a creatinine of 5 it was improved to 2.44 today. Presently on half-normal saline at 200 cc/h. Urinary output is excellent. 11 L this morning. Plan is to continue the present management and recheck the labs tomorrow. (2) Constipation Qualifiers: Constipation type: drug induced constipation Qualified Code(s): K59.03 - Drug induced constipation Is this a current diagnosis for this admission?: Yes (3) Hypertension Is this a current diagnosis for this admission?: Yes Plan: 02/23/2019-patient blood pressure today is 128/82. Stable. 02/24/2019-patient blood pressure today is 157/80 stable. Plan is to continue the present management. 02/25/2019-patient blood pressure today is 150/96 stable patient received hydralazine IV for high blood pressure yesterday developed with throat swelling and discomfort hydralazine was discontinued he was given 50 Benadryl IV 1 dose no symptoms today. 02/26/2019-patient blood pressure today is 162/87. Asymptomatic. He received IV hydralazine 2 days ago after that complaining of throat swelling. Asymptomatic. (4) Nausea and vomiting Qualifiers: Vomiting type: unspecified Vomiting Intractability: non-intractable Qualified Code(s): R11.2 - Nausea with vomiting, unspecified Is this a current diagnosis for this admission?: Yes (5) S/P prostatectomy Is this a current diagnosis for this admission?: Yes (6) Hypernatremia Is this a current diagnosis for this admission?: Yes Plan: 02/23/2019-serum sodium is 142 today presently on half normal saline at 200 cc/h hyponatremia resolved. 02/24/2019-serum sodium level today is 142.4 hypernatremia resolved. 02/25/2019-serum sodium is 144.2. Hyponatremia resolved. Patient is present on half-normal saline at 100 cc/h. 02/26/2019-latest serum sodium is 142 within normal range. Presently on half- normal saline at 200 cc/h. (7) Obesity (BMI 30-39.9) Is this a current diagnosis for this admission?: No - Time Time Spent with patient: 15-24 minutes Medications reviewed and adjusted accordingly: Yes Anticipated discharge: Home
--- NOTE | 2019-02-26 10:43 | PDOC PROGRESS REPORT ---
Subjective Progress Note for:: 02/26/19 Subjective:: Patient is doing well and continues to make good amount of urine output anywhere between 7 to 11 L for the last 3 days. He continues to be on IV fluids with half-normal saline at 200 mL an hour. His blood pressure is somewhat elevated and he was tried on hydralazine but he had some throat swelling so that was discontinued. He was previously on lisinopril/hydrochlorothiazide which was held due to his acute kidney injury. He was maintained on metoprolol initially with he was getting bradycardic to that was discontinued as well. He is getting bored waiting for his kidney function to get better but is willing to stay until he is ready to go home. He has an appointment with Dr. Zaragoza on February 28 for post prostatectomy follow-up visit. Reason For Visit: ABDOMINAL PAIN,ACUTE KIDNEY INJURY,OBSTIPATION Physical Exam Vital Signs: Temp Pulse Resp BP Pulse Ox 98.4 F 59 L 16 163/83 H 99 02/26/19 07:55 02/26/19 07:55 02/26/19 07:55 02/26/19 07:55 02/26/19 07:55 Intake & Output 02/25/19 02/26/19 02/27/19 06:59 06:59 06:59 Intake Total 5782 8123 1000 Output Total 8275 82748 Balance -2152 -1016 1000 Weight 105.4 kg 105.4 kg Exam: General appearance: PRESENT: no acute distress, cooperative, well-developed, well-nourished Head exam: PRESENT: atraumatic, normocephalic Eye exam: PRESENT: conjunctiva pink, PERRLA. ABSENT: scleral icterus Neck exam: ABSENT: JVD Respiratory exam: PRESENT: Normal breath sounds. ABSENT: crackles, rales, rhonchi, unlabored, wheezes Cardiovascular exam: PRESENT: Regular rate rhythm -+S1, +S2. ABSENT: diastolic murmur, systolic murmur GI/Abdominal exam: PRESENT: normal bowel sounds, soft. ABSENT: guarding, mass, tenderness Extremities exam: ABSENT: No edema Neurological exam: PRESENT: alert, awake, oriented to person, place and time. Skin exam: PRESENT: dry, warm, Results Laboratory Results: 02/26/19 04:08 02/26/19 04:08 02/26/19 02/26/19 04:08 04:08 WBC 6.5 RBC 3.95 L Hgb 11.5 L Hct 34.3 L MCV 87 MCH 29.1 MCHC 33.5 RDW 13.1 Plt Count 196 Seg Neutrophils % 62.4 Lymphocytes % 21.7 Monocytes % 10.8 Eosinophils % 4.1 Basophils % 1.0 Absolute Neutrophils 4.1 Absolute Lymphocytes 1.4 Absolute Monocytes 0.7 Absolute Eosinophils 0.3 Absolute Basophils 0.1 Sodium 142.3 Potassium 4.1 Chloride 106 Carbon Dioxide 25 Anion Gap 11 BUN 21 H Creatinine 2.44 H Est GFR ( Amer) 35 L Est GFR (Non-Af Amer) 29 L Glucose 81 Calcium 9.2 Magnesium 1.9 Total Bilirubin 0.4 AST 32 ALT 35 Alkaline Phosphatase 57 Total Protein 6.0 L Albumin 3.3 L 02/21/19 09:45 Creatine Kinase 103 Impressions: Acute Abdomen Series 02/21/19 10:39 IMPRESSION: Marked constipation. Extensive gas in the abdominal wall likely related to recent surgery. Abdomen/Pelvis CT 02/21/19 14:27 IMPRESSION: Postsurgical changes from robotic prostatectomy. No CT evidence of hydronephrosis, hydroureter or urinary stones. Escalera catheter in good positioning in the bladder. 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 Assessment & Plan - Diagnosis (1) Acute kidney injury Is this a current diagnosis for this admission?: Yes Plan: Likely secondary to prerenal azotemia. Kidney ultrasound is normal without any hydronephrosis. Currently nonoliguric. Kidney function is slowly improving. Continue IV fluid hydration and monitoring kidney function. No need of renal replacement therapy at this time. If the kidney function is at least 6 with creatinine of below 2 tomorrow I think he can be safely discharged home. 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 If he gets to be discharged tomorrow he is to keep his appointment with Dr. Zaragoza on February 28. (2) Dehydration Is this a current diagnosis for this admission?: Yes Plan: Much improved. (3) Hypertension Is this a current diagnosis for this admission?: Yes Plan: We will try amlodipine 5 mg p.o. daily starting today. May resume lisinopril/HCTZ once the kidney function goes back to baseline as an outpatient. Patient has adverse reaction to hydralazine. (4) Abdominal pain Is this a current diagnosis for this admission?: Yes Plan: Just over the incision sites. (5) Constipation Qualifiers: Constipation type: drug induced constipation Qualified Code(s): K59.03 - Drug induced constipation Is this a current diagnosis for this admission?: Yes Plan: Resolved. (6) Hypernatremia Is this a current diagnosis for this admission?: Yes Plan: Resolved. (7) S/P prostatectomy Is this a current diagnosis for this admission?: Yes Plan: 02/13/[address] Zaragoza of [facility] urology. Patient has stage I prostate cancer. Patient supposed to be on Escalera catheter until follow-up with Dr. Zaragoza scheduled on 02/28/2019. - Time Time with patient: 15-25 minutes
[2019-02-26] MEDS: AMLODIPINE BESYLATE 5 MG TABLET PO SCH (11:15)
[2019-02-27] MEDS: 1/2 NORMAL SALINE 1,000 ML IV PRN ×5 (03:53→23:47)
[2019-02-27] MEDS: HEPARIN SOD (PORCINE) 5,000 UNIT/ML 1 ML SYRINGE SUBCUT SCH ×3 (06:05→22:04)
[2019-02-27 06:58] LABS: ALANINE AMINOTRANSFERASE 49 U/L (21-72); ALBUMIN 3.7 g/dL (3.5-5.0); ALKALINE PHOSPHATASE 55 U/L (38-126); ANION GAP 12 (5-19); ASPARTATE AMINO TRANSFERASE 39 U/L (17-59); BILIRUBIN,DIRECT 0.2 mg/dL (0.0-0.4); BILIRUBIN,TOTAL 0.5 mg/dL (0.2-1.3); BLOOD UREA NITROGEN 19 mg/dL (7-20); CALCIUM 9.5 mg/dL (8.4-10.2); CARBON DIOXIDE 24 mmol/L (22-30); CHLORIDE 106 mmol/L (98-107); GLUCOSE 83 mg/dL (75-110); POTASSIUM 4.2 mmol/L (3.6-5.0); SODIUM 142.1 mmol/L (137-145); TOTAL PROTEIN 6.3 g/dL (6.3-8.2)
[2019-02-27 07:00] LABS: ABSOLUTE BASOPHILS # (AUTO) 0.1 10^3/uL (0.0-0.2); ABSOLUTE EOSINOPHILS # (AUTO) 0.2 10^3/uL (0.0-0.6); ABSOLUTE LYMPHOCYTES (AUTO) 1.3 10^3/uL (0.5-4.7); ABSOLUTE MONOCYTES (AUTO) 0.7 10^3/uL (0.1-1.4); BASOPHILS % (AUTO) 1.3 % (0-2); EOSINOPHILS % (AUTO) 3.7 % (0-6); HEMATOCRIT 35.6 % (37.9-51.0); HEMOGLOBIN 12.1 g/dL (13.5-17.0); LYMPHOCYTES % (AUTO) 20.6 % (13-45); MEAN CORPUSCULAR HEMOGLOBIN 29.4 pg (27.0-33.4); MEAN CORPUSCULAR HGB CONC 33.8 g/dL (32.0-36.0); MEAN CORPUSCULAR VOLUME 87 fl (80-97); MONOCYTES % (AUTO) 11.4 % (3-13); PLATELET COUNT 212 10^3/uL (150-450); TOTAL CELLS COUNTED % (AUTO) 100 %; WHITE BLOOD COUNT 6.4 10^3/uL (4.0-10.5)
[2019-02-27] MEDS: AMLODIPINE BESYLATE 5 MG TABLET PO SCH (09:02)
[2019-02-27] MEDS: DOCUSATE SODIUM 100 MG CAPSULE PO SCH ×2 (09:02→17:28)
[2019-02-27] MEDS: FAMOTIDINE 20 MG TABLET PO SCH (09:02)
--- NOTE | 2019-02-27 10:52 | PDOC PROGRESS REPORT ---
Subjective Progress Note for:: 02/27/19 Subjective:: 43 year old male with a past medical history of myocardial infarction in 2010. Earlier this year he was having issues with urination. He did have a history of benign prostatic hypertrophy. His PSA was checked and his last PSA last year I believe was 2.0 and it was 10.0. He was diagnosed with a stage I prostate cancer and underwent robotic prostatectomy. He has been feeling poorly over the last several days. He did have some expected postoperative pain but he began to feel nauseated. He was taking scheduled oxycodone and using 800 mg ibuprofen tablets several times a day. He has not had a bowel movement since before the surgery. He also has some diffuse nonspecific discomfort across the abdomen. During his work-up it was found that his serum creatinine was greater than 5.0. His creatinine earlier this year was normal. His BUN was also elevated. The emergency department physician spoke with the patient's urologist. He requested a CT scan of the abdomen. CT scan reveals no abnormal pathology in the kidney and ureter. His Escalera catheter still in place from his surgery. There was stool throughout the colon. The urologist felt it was not necessary to transfer the patient to [facility] at this time. Because of his marked elevation in serum creatinine he was referred to the hospital service for admission. 02/22/[id number]-coat-old male admitted for acute renal failure with creatinine of 6. He had a prostatic hypertrophy and elevated PSA diagnosed with stage I prostate cancer status post robotic prostatectomy. He does not have any bowel movement after the surgery. He is taking scheduled oxycodone and ibuprofen several times a day. Acute kidney injury may be secondary to ibuprofen use. CT abdomen pelvis was done in the emergency room no acute pathology was noted. No acute events in the last 24 hours afebrile. Patient still does not have any bowel movement even with mag citrate. Started on Fleet Enema today. comfortably in the bed communicating well. 02/23/[id number]-sjtu-old male with recent history of prostatectomy with Escalera's catheter admitted for acute renal failure. Admission creatinine is around 5. Nephrology consult was done creatinine today 3.87. Urinary output is 2.3 L in the last 24 hours. Renal ultrasound is negative for obstruction. Patient complaining of severe constipation after giving the edema he had bowel movements yesterday. He is going to give GoLYTELY today because patient is refusing any me again. 02/24/2019-no acute events in the last 24 hours. T-max is 99.2. Urinary output is more than 2.5 L. He still have the Escalera's catheter. Creatinine is improved to 3.2. Plan is to decrease the IV fluids 200 cc/h and recheck labs tomorrow. 02/25/2019-no acute events in the last 24 hours. Afebrile. Creatinine was improved to 3.01. Receiving IV fluids at 100 cc/h. To recheck the labs t omorrow. Renal ultrasound was negative for acute pathology. Patient was frustrated about slow recovery. 02/26/2019-no acute events in the last 24 hours. Patient is afebrile. No complaints from the patient. Creatinine improved to 2.44 today. Patient wants to stay at least another day and requesting the labs to be done tomorrow. 02/27/[id number]-gswq-old male admitted with acute kidney injury. At the time of admission his creatinine is more than 5. Today's creatinine is 2.17. Patient does not want to go home with creatinine at about 2. He wants to wait and check the labs tomorrow if the creatinine is more than 7 2 he is willing to go home. Acute events in the last 24 hours, patient is afebrile. Reason For Visit: ABDOMINAL PAIN,ACUTE KIDNEY INJURY,OBSTIPATION Physical Exam Vital Signs: Temp Pulse Resp BP Pulse Ox 98.3 F 76 16 138/82 H 97 02/27/19 08:02 02/27/19 08:02 02/27/19 08:02 02/27/19 08:02 02/27/19 08:02 Intake & Output 02/26/19 02/27/19 02/28/19 06:59 06:59 06:59 Intake Total 8123 80464 1000 Output Total 24343 32143 Balance -2927 405 1000 Weight 105.4 kg 102.7 kg General appearance: PRESENT: no acute distress Head exam: PRESENT: atraumatic Eye exam: PRESENT: PERRLA Mouth exam: PRESENT: moist, tongue midline Teeth exam: PRESENT: poor dentation Neck exam: ABSENT: carotid bruit, JVD, lymphadenopathy, thyromegaly Respiratory exam: PRESENT: decreased breath sounds Cardiovascular exam: PRESENT: RRR. ABSENT: diastolic murmur, rubs, systolic murmur GI/Abdominal exam: PRESENT: normal bowel sounds, soft. ABSENT: distended, guarding, mass, organolmegaly, rebound, tenderness Rectal exam: PRESENT: deferred Extremities exam: PRESENT: full ROM. ABSENT: calf tenderness, clubbing, pedal edema Neurological exam: PRESENT: alert, awake, oriented to person, oriented to place, oriented to time, oriented to situation, CN II-XII grossly intact. ABSENT: motor sensory deficit Psychiatric exam: PRESENT: appropriate affect, normal mood. ABSENT: homicidal ideation, suicidal ideation Results Laboratory Results: 02/27/19 05:40 02/27/19 05:40 02/27/19 02/27/19 05:40 05:40 WBC 6.4 RBC 4.10 L Hgb 12.1 L Hct 35.6 L MCV 87 MCH 29.4 MCHC 33.8 RDW 13.0 Plt Count 212 Seg Neutrophils % 63.0 Lymphocytes % 20.6 Monocytes % 11.4 Eosinophils % 3.7 Basophils % 1.3 Absolute Neutrophils 4.0 Absolute Lymphocytes 1.3 Absolute Monocytes 0.7 Absolute Eosinophils 0.2 Absolute Basophils 0.1 Sodium 142.1 Potassium 4.2 Chloride 106 Carbon Dioxide 24 Anion Gap 12 BUN 19 Creatinine 2.17 H Est GFR ( Amer) 40 L Est GFR (Non-Af Amer) 33 L Glucose 83 Calcium 9.5 Magnesium 1.8 Total Bilirubin 0.5 AST 39 ALT 49 Alkaline Phosphatase 55 Total Protein 6.3 Albumin 3.7 02/21/19 09:45 Creatine Kinase 103 Impressions: Acute Abdomen Series 02/21/19 10:39 IMPRESSION: Marked constipation. Extensive gas in the abdominal wall likely related to recent surgery. Abdomen/Pelvis CT 02/21/19 14:27 IMPRESSION: Postsurgical changes from robotic prostatectomy. No CT evidence of hydronephrosis, hydroureter or urinary stones. Escalera catheter in good positioning in the bladder. 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 Assessment and Plan - Diagnosis (1) Acute kidney injury Is this a current diagnosis for this admission?: Yes Plan: 02/22/[id number]-jano-old male admitted with acute kidney injury admission creatinine was more than 5 with IV fluids it improved to 4.38. Renal consult was requested renal ultrasound was requested. We will continue the IV hydration therapy today. Acute kidney injury most likely secondary to poor oral intake. He is also came in with history of nausea and vomiting's. 02/23/2019-latest creatinine is 3.87 presently and a half normal saline at 200 cc/h. Renal ultrasound was negative for acute pathology. Urinary output is 2.3 L yesterday. He has a Escalera's catheter after recent prostatectomy. Nephrology on board. Plan is to continue the present management. 02/24/2019-today's creatinine is 3.2 improved from 3.8. Presently on a half normal saline at 200 cc/h plan is to decrease the fluid rate to 100 cc/h. Renal ultrasound is negative for acute pathology. Urinary output is more than 2.5 L. He still have the Escalera's catheter in place after a recent prostatectomy. Patient was to follow-up with urologist as an outpatient and further removal of the Escalera's catheter. 02/25/2019-today's creatinine is 3.01 slightly improved EGFR is 27. Presently on half normal saline 100 cc/h urinary output is more than 8 L yesterday. Patient has a recent history of prostatectomy and Escalera's catheter. Patient is frustrated and slow recovery of the kidney function. Plans to bump to bump the fluid up to 200 cc/h today recheck the labs tomorrow. 02/26/[id number]-nkkz-old male admitted with acute kidney injury most likely seconda ry to poor oral intake and also the recent prostatectomy may be a contributing factor. Admitted with a creatinine of 5 it was improved to 2.44 today. Presently on half-normal saline at 200 cc/h. Urinary output is excellent. 11 L this morning. Plan is to continue the present management and recheck the labs tomorrow. 02/27/[id number]-rwvn-old male admitted with acute kidney injury most likely prerenal because he came in with abdominal pain nausea and vomitings and diarrhea though symptoms are resolved. And patient also has a recent prostatectomy which may be a contributing factor. Latest creatinine is 2.17. Improved from 2.44 from yesterday. Patient wants to stay until creatinine came down less than 2. No complaints. renal Ultrasound was negative. Nephrology on board. (2) Constipation Qualifiers: Constipation type: drug induced constipation Qualified Code(s): K59.03 - Drug induced constipation Is this a current diagnosis for this admission?: Yes Plan: The patient was on narcotic therapy for his postoperative pain. He has not had a bowel movement since his surgery. His last bowel movement was in fact prior to the surgery. I explained to the patient that because his colon has so much stool will need to work from below and above. I have ordered to collect suppositories as well as oral preparations for his constipation. Normally he moves his bowels daily. With the likelihood of some ongoing analgesia we will recommend a daily regimen at discharge. 02/22/2019-patient came in with history of constipation he has robotic prostatectomy was done 1 week ago after that he does not have any bowel movement at all. We did mag citrate did not help we are going to try Fleet Enema today. 02/23/2019-constipation most likely secondary to pain medications. OxyContin was discontinued today. He had a bowel movement yesterday after edema but he said does not want any much would try golytly. 02/24/2019-after receiving GoLYTELY patient had regular bowel movements. Constipation is resolved. 02/27/2019-patient is having a regular bowel movements now. Denies any constipation today. (3) Hypertension Is this a current diagnosis for this admission?: Yes Plan: 02/23/2019-patient blood pressure today is 128/82. Stable. 02/24/2019-patient blood pressure today is 157/80 stable. Plan is to continue the present management. 02/25/2019-patient blood pressure today is 150/96 stable patient received hydralazine IV for high blood pressure yesterday developed with throat swelling and discomfort hydralazine was discontinued he was given 50 Benadryl IV 1 dose no symptoms today. 02/26/2019-patient blood pressure today is 162/87. Asymptomatic. He received IV hydralazine 2 days ago after that complaining of throat swelling. Asymptomatic. 02/27/2019-since latest blood pressure is 129/63. Stable. Plan is to continue to check blood pressures every shift. (4) Nausea and vomiting Qualifiers: Vomiting type: unspecified Vomiting Intractability: non-intractable Qualified Code(s): R11.2 - Nausea with vomiting, unspecified Is this a current diagnosis for this admission?: Yes Plan: Likely combination of the prolonged constipation and acute kidney injury. Antiemetics will be available. He should feel better with a combination of IV fluids and bowel movements. 02/22/2019-patient came in with nausea and vomitings associated with acute kidney injury. Patient is presently on IV fluids and IV Zofran. Still does not have any bowel movement. Started on Fleet Enema from today. 02/23/2019-nausea vomiting resolved. Patient admitted with nausea vomiting probably secondary to severe constipation. Constipation is also resolving. 02/27/2019-patient came in with nausea vomiting abdominal pains and though symptoms are resolved. (5) S/P prostatectomy Is this a current diagnosis for this admission?: Yes (6) Hypernatremia Is this a current diagnosis for this admission?: Yes Plan: 02/23/2019-serum sodium is 142 today presently on half normal saline at 200 cc/h hyponatremia resolved. 02/24/2019-serum sodium level today is 142.4 hypernatremia resolved. 02/25/2019-serum sodium is 144.2. Hyponatremia resolved. Patient is present on half-normal saline at 100 cc/h. 02/26/2019-latest serum sodium is 142 within normal range. Presently on half- normal saline at 200 cc/h. 02/27/2019-patient serum sodium today is 142. Receiving half normal saline at 200 cc/h hypernatremia resolved. (7) Obesity (BMI 30-39.9) Is this a current diagnosis for this admission?: No - Time Time Spent with patient: 15-24 minutes Medications reviewed and adjusted accordingly: Yes Anticipated discharge: Home
--- NOTE | 2019-02-27 18:21 | PDOC PROGRESS REPORT ---
Subjective Progress Note for:: 02/27/19 Subjective:: Patient continues to do well and has been clinically stable. He makes good amount of urine output and has been very compliant with diet and fluid intake. No new complaints. He did have a lot of questions regarding diet and how much fluid he needs to take when he gets discharged. Reason For Visit: ABDOMINAL PAIN,ACUTE KIDNEY INJURY,OBSTIPATION Physical Exam Vital Signs: Temp Pulse Resp BP Pulse Ox 98.6 F 84 16 153/87 H 98 02/27/19 15:31 02/27/19 15:31 02/27/19 15:31 02/27/19 15:31 02/27/19 15:31 Intake & Output 02/26/19 02/27/19 02/28/19 06:59 06:59 06:59 Intake Total 8123 56694 3170 Output Total 51902 32402 2350 Balance -2927 405 820 Weight 105.4 kg 102.7 kg Exam: General appearance: PRESENT: no acute distress, cooperative, well-developed, well-nourished Head exam: PRESENT: atraumatic, normocephalic Eye exam: PRESENT: conjunctiva pink, PERRLA. ABSENT: scleral icterus Neck exam: ABSENT: JVD Respiratory exam: PRESENT: Normal breath sounds. ABSENT: crackles, rales, rhonchi, unlabored, wheezes Cardiovascular exam: PRESENT: Regular rate rhythm -+S1, +S2. ABSENT: diastolic murmur, systolic murmur GI/Abdominal exam: PRESENT: normal bowel sounds, soft. ABSENT: guarding, mass, tenderness Extremities exam: ABSENT: No edema Neurological exam: PRESENT: alert, awake, oriented to person, place and time. Skin exam: PRESENT: dry, warm, Results Laboratory Results: 02/27/19 05:40 02/27/19 05:40 02/27/19 02/27/19 05:40 05:40 WBC 6.4 RBC 4.10 L Hgb 12.1 L Hct 35.6 L MCV 87 MCH 29.4 MCHC 33.8 RDW 13.0 Plt Count 212 Seg Neutrophils % 63.0 Lymphocytes % 20.6 Monocytes % 11.4 Eosinophils % 3.7 Basophils % 1.3 Absolute Neutrophils 4.0 Absolute Lymphocytes 1.3 Absolute Monocytes 0.7 Absolute Eosinophils 0.2 Absolute Basophils 0.1 Sodium 142.1 Potassium 4.2 Chloride 106 Carbon Dioxide 24 Anion Gap 12 BUN 19 Creatinine 2.17 H Est GFR ( Amer) 40 L Est GFR (Non-Af Amer) 33 L Glucose 83 Calcium 9.5 Magnesium 1.8 Total Bilirubin 0.5 AST 39 ALT 49 Alkaline Phosphatase 55 Total Protein 6.3 Albumin 3.7 02/21/19 09:45 Creatine Kinase 103 Impressions: Acute Abdomen Series 02/21/19 10:39 IMPRESSION: Marked constipation. Extensive gas in the abdominal wall likely related to recent surgery. Abdomen/Pelvis CT 02/21/19 14:27 IMPRESSION: Postsurgical changes from robotic prostatectomy. No CT evidence of hydronephrosis, hydroureter or urinary stones. Escalera catheter in good positioning in the bladder. 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 Assessment & Plan - Diagnosis (1) Acute kidney injury Is this a current diagnosis for this admission?: Yes Plan: Likely secondary to prerenal azotemia. Kidney ultrasound is normal without any hydronephrosis. Currently nonoliguric. Kidney function is continues to improve and most likely will follow the same course in the next few days. Continue IV fluid hydration and monitoring kidney function. No need of renal replacement therapy at this time. From nephrology standpoint if he can be safely discharged home tomorrow. Patient was advised regarding diet and adequate fluid intake. Patient will need to reschedule his appointment with Dr. Zaragoza. Also answered his questions regarding kidney disease. Follow-up with me or my other partners in the office in the next 2 to 3 weeks with repeat basic metabolic panel. (2) Dehydration Is this a current diagnosis for this admission?: Yes Plan: Much improved. (3) Hypertension Is this a current diagnosis for this admission?: Yes Plan: Slightly improved today. Started on amlodipine 5 mg p.o. daily yesterday. May resume lisinopril/HCTZ once the kidney function goes back to baseline as an outpatient. Patient has adverse reaction to hydralazine. (4) Abdominal pain Is this a current diagnosis for this admission?: Yes Plan: Just over the incision sites. (5) Constipation Qualifiers: Constipation type: drug induced constipation Qualified Code(s): K59.03 - Drug induced constipation Is this a current diagnosis for this admission?: Yes Plan: Resolved. (6) Hypernatremia Is this a current diagnosis for this admission?: Yes Plan: Resolved. (7) S/P prostatectomy Is this a current diagnosis for this admission?: Yes Plan: 02/13/[address] Zaragoza of [facility] urology. Patient has stage I prostate cancer. Patient supposed to be on Escalera catheter until follow-up with Dr. Zaragoza scheduled on 02/28/2019. He needs to reschedule appointment. - Time Time with patient: 15-25 minutes
[2019-02-27] MEDS: ACETAMINOPHEN 325 MG TABLET PO PRN (19:01)
[2019-02-28] MEDS: 1/2 NORMAL SALINE 1,000 ML IV PRN ×4 (04:50→19:41)
[2019-02-28] MEDS: HEPARIN SOD (PORCINE) 5,000 UNIT/ML 1 ML SYRINGE SUBCUT SCH ×3 (05:08→22:19)
[2019-02-28 06:50] LABS: ABSOLUTE BASOPHILS # (AUTO) 0.1 10^3/uL (0.0-0.2); ABSOLUTE EOSINOPHILS # (AUTO) 0.2 10^3/uL (0.0-0.6); ABSOLUTE LYMPHOCYTES (AUTO) 1.2 10^3/uL (0.5-4.7); ABSOLUTE MONOCYTES (AUTO) 0.7 10^3/uL (0.1-1.4); ABSOLUTE NEUT (AUTO) 3.6 10^3/uL (1.7-8.2); BASOPHILS % (AUTO) 1.3 % (0-2); EOSINOPHILS % (AUTO) 3.8 % (0-6); HEMATOCRIT 36.5 % (37.9-51.0); HEMOGLOBIN 12.3 g/dL (13.5-17.0); LYMPHOCYTES % (AUTO) 21.2 % (13-45); MEAN CORPUSCULAR HEMOGLOBIN 29.5 pg (27.0-33.4); MEAN CORPUSCULAR HGB CONC 33.6 g/dL (32.0-36.0); MEAN CORPUSCULAR VOLUME 88 fl (80-97); MONOCYTES % (AUTO) 12.4 % (3-13); PLATELET COUNT 229 10^3/uL (150-450); RED BLOOD COUNT 4.16 10^6/uL (4.35-5.55); RED CELL DISTRIBUTION WIDTH 13.3 % (11.5-14.0); SEGMENTED NEUTROPHILS % (AUTO) 61.3 % (42-78); TOTAL CELLS COUNTED % (AUTO) 100 %; WHITE BLOOD COUNT 5.8 10^3/uL (4.0-10.5)
[2019-02-28 07:16] LABS: ALANINE AMINOTRANSFERASE 59 U/L (21-72); ALBUMIN 3.7 g/dL (3.5-5.0); ALKALINE PHOSPHATASE 55 U/L (38-126); ANION GAP 12 (5-19); ASPARTATE AMINO TRANSFERASE 40 U/L (17-59); BILIRUBIN,DIRECT 0.2 mg/dL (0.0-0.4); BILIRUBIN,TOTAL 0.6 mg/dL (0.2-1.3); BLOOD UREA NITROGEN 17 mg/dL (7-20); CALCIUM 9.7 mg/dL (8.4-10.2); CARBON DIOXIDE 24 mmol/L (22-30); CHLORIDE 107 mmol/L (98-107); GLUCOSE 85 mg/dL (75-110); POTASSIUM 4.2 mmol/L (3.6-5.0); SODIUM 143.2 mmol/L (137-145); TOTAL PROTEIN 6.6 g/dL (6.3-8.2)
[2019-02-28] MEDS ORDERED: AMLODIPINE BESYLATE 5 MG TABLET PO SCH (10:00)
[2019-02-28] MEDS: AMLODIPINE BESYLATE 10 MG TABLET PO SCH (10:14)
[2019-02-28] MEDS: FAMOTIDINE 20 MG TABLET PO SCH (10:14)
[2019-02-28] MEDS: DOCUSATE SODIUM 100 MG CAPSULE PO SCH ×2 (10:15→17:34)
--- NOTE | 2019-02-28 19:29 | PDOC PROGRESS REPORT ---
Subjective Progress Note for:: 02/28/19 Subjective:: JOSE MANUEL ZARCO JR is a 43 year old male with history of stage I prostate cancer, coronary artery disease, hypertension who presented to the emergency room because of abdominal pain, nausea and vomiting. Patient underwent robotic laparoscopic prostatectomy by Dr. Zaragoza at [facility] in [place] on 02/13/2019. He said the procedure itself was uneventful and he was discharged home the next day. Post surgery he was taking pain medications including OxyContin and baclofen. He admits that he was not drinking enough and he does not have a appetite eater so is not eating as much as well. He also has not had a bowel movement for the last 8 days since surgery. Yesterday he started having nausea and vomiting with abdominal discomfort so he decided to go to the [facility] room. He denies any chest pains no shortness of breath. Initial evaluation showed elevated BUN of 35, creatinine of 5.03 with EGFR of 15. On November 10 his BUN was 21, creatinine of 1.21 and EGFR greater than 60 which is near normal. He also has borderline elevated sodium at 147.6, bicarbonate of 30 and hemoglobin of 14.5. His urinalysis was negative for protein, has some moderate blood with RBC of 2, only WBC of 8 with trace leukocyte esterase. He had a CT scan of the abdomen without contrast yesterday which showed postsurgical changes but no evidence of hydronephrosis, hydroureter or ureteral stones. There was moderate amount of stool. The emergency room provider contacted [facility] urology and deemed that the patient does not need to be transferred. In the emergency room he was given IV fluid boluses with 0.9 normal saline x2 L. IV fluids are still going at 200 mL an hour. Since admission he made 2300 mL of urine. He said he is drinking water may be about 2 to 3 L since he came in. Today his BUN is 30, creatinine of 4.36 and EGFR of 18. Hemoglobin is now 12.1, sodium of 145.4. He was given magnesium citrate in the emergency room and made a little movement but still feeling bloated. Reason For Visit: ABDOMINAL PAIN,ACUTE KIDNEY INJURY,OBSTIPATION Physical Exam Vital Signs: Temp Pulse Resp BP Pulse Ox 99.2 F 88 15 158/87 H 97 02/28/19 15:36 02/28/19 15:36 02/28/19 15:36 02/28/19 15:36 02/28/19 15:36 Intake & Output 02/27/19 02/28/19 03/01/19 06:59 06:59 06:59 Intake Total 78548 9817 4213 Output Total 81033 4800 3300 Balance 405 5017 913 Weight 102.7 kg 102.7 kg 102.7 kg General appearance: PRESENT: no acute distress, well-developed, well-nourished Head exam: PRESENT: atraumatic, normocephalic Eye exam: PRESENT: conjunctiva pink, EOMI, PERRLA. ABSENT: scleral icterus Ear exam: PRESENT: normal external ear exam Mouth exam: PRESENT: moist, tongue midline Neck exam: ABSENT: carotid bruit, JVD, lymphadenopathy, thyromegaly Respiratory exam: PRESENT: clear to auscultation souleymane. ABSENT: rales, rhonchi, wheezes Cardiovascular exam: PRESENT: RRR. ABSENT: diastolic murmur, rubs, systolic murmur Pulses: PRESENT: normal dorsalis pedis pul Vascular exam: PRESENT: normal capillary refill GI/Abdominal exam: PRESENT: normal bowel sounds, soft. ABSENT: distended, guarding, mass, organolmegaly, rebound, tenderness Rectal exam: PRESENT: deferred Extremities exam: PRESENT: full ROM. ABSENT: calf tenderness, clubbing, pedal edema Neurological exam: PRESENT: alert, awake, oriented to person, oriented to place, oriented to time, oriented to situation, CN II-XII grossly intact. ABSENT: motor sensory deficit Psychiatric exam: PRESENT: appropriate affect, normal mood. ABSENT: homicidal ideation, suicidal ideation Skin exam: PRESENT: dry, intact, warm. ABSENT: cyanosis, rash Results Laboratory Results: 02/28/19 06:30 02/28/19 06:30 02/28/19 02/28/19 06:30 06:30 WBC 5.8 RBC 4.16 L Hgb 12.3 L Hct 36.5 L MCV 88 MCH 29.5 MCHC 33.6 RDW 13.3 Plt Count 229 Seg Neutrophils % 61.3 Lymphocytes % 21.2 Monocytes % 12.4 Eosinophils % 3.8 Basophils % 1.3 Absolute Neutrophils 3.6 Absolute Lymphocytes 1.2 Absolute Monocytes 0.7 Absolute Eosinophils 0.2 Absolute Basophils 0.1 Sodium 143.2 Potassium 4.2 Chloride 107 Carbon Dioxide 24 Anion Gap 12 BUN 17 Creatinine 1.90 H Est GFR ( Amer) 47 L Est GFR (Non-Af Amer) 39 L Glucose 85 Calcium 9.7 Magnesium 1.8 Total Bilirubin 0.6 AST 40 ALT 59 Alkaline Phosphatase 55 Total Protein 6.6 Albumin 3.7 02/21/19 09:45 Creatine Kinase 103 Impressions: Acute Abdomen Series 02/21/19 10:39 IMPRESSION: Marked constipation. Extensive gas in the abdominal wall likely related to recent surgery. Abdomen/Pelvis CT 02/21/19 14:27 IMPRESSION: Postsurgical changes from robotic prostatectomy. No CT evidence of hydronephrosis, hydroureter or urinary stones. Escalera catheter in good positioning in the bladder. 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 Assessment and Plan - Diagnosis (1) Acute kidney injury Is this a current diagnosis for this admission?: Yes Plan: 02/22/[id number]-wogy-old male admitted with acute kidney injury admission creatinine was more than 5 with IV fluids it improved to 4.38. Renal consult was requested renal ultrasound was requested. We will continue the IV hydration therapy today. Acute kidney injury most likely secondary to poor oral intake. He is also came in with history of nausea and vomiting's. 02/23/2019-latest creatinine is 3.87 presently and a half normal saline at 200 cc/h. Renal ultrasound was negative for acute pathology. Urinary output is 2.3 L yesterday. He has a Escalera's catheter after recent prostatectomy. Nephrology on board. Plan is to continue the present management. 02/24/2019-today's creatinine is 3.2 improved from 3.8. Presently on a half normal saline at 200 cc/h plan is to decrease the fluid rate to 100 cc/h. Renal ultrasound is negative for acute pathology. Urinary output is more than 2.5 L. He still have the Escalera's catheter in place after a recent prostatectomy. Patient was to follow-up with urologist as an outpatient and further removal of the Escalera's catheter. 02/25/2019-today's creatinine is 3.01 slightly improved EGFR is 27. Presently on half normal saline 100 cc/h urinary output is more than 8 L yesterday. Patient has a recent history of prostatectomy and Escalera's catheter. Patient is frustrated and slow recovery of the kidney function. Plans to bump to bump the fluid up to 200 cc/h today recheck the labs tomorrow. 02/26/[id number]-qyug-old male admitted with acute kidney injury most likely seconda ry to poor oral intake and also the recent prostatectomy may be a contributing factor. Admitted with a creatinine of 5 it was improved to 2.44 today. Presently on half-normal saline at 200 cc/h. Urinary output is excellent. 11 L this morning. Plan is to continue the present management and recheck the labs tomorrow. 02/27/[id number]-zgmg-old male admitted with acute kidney injury most likely prerenal because he came in with abdominal pain nausea and vomitings and diarrhea though symptoms are resolved. And patient also has a recent prostatectomy which may be a contributing factor. Latest creatinine is 2.17. Improved from 2.44 from yesterday. Patient wants to stay until creatinine came down less than 2. No complaints. renal Ultrasound was negative. Nephrology on board. (2) Dehydration Is this a current diagnosis for this admission?: Yes (3) Obesity (BMI 30-39.9) Is this a current diagnosis for this admission?: No Plan: 02/23/2019-patient OR is more than 36 diet exercise weight loss lifestyle modifications are discussed with the patient. (4) Abdominal pain Is this a current diagnosis for this admission?: Yes
[2019-02-28] MEDS: ACETAMINOPHEN 325 MG TABLET PO PRN (22:16)
[2019-02-28] MEDS: CIPROFLOXACIN HCL 500 MG TABLET PO SCH (22:17)
[2019-03-01] MEDS: 1/2 NORMAL SALINE 1,000 ML IV PRN ×2 (00:36→06:02)
[2019-03-01] MEDS: HEPARIN SOD (PORCINE) 5,000 UNIT/ML 1 ML SYRINGE SUBCUT SCH (06:02)
[2019-03-01] MEDS: CIPROFLOXACIN HCL 500 MG TABLET PO SCH (06:02)
[2019-03-01] MEDS ORDERED: FENTANYL CITRATE INJ/PF 100 MCG/2 ML AMPUL IV ONE (07:32)
[2019-03-01] MEDS ORDERED: LORAZEPAM INJ 2 MG/1 ML VIAL IV ONE (07:41)
[2019-03-01 08:15] LABS: ABSOLUTE BASOPHILS # (AUTO) 0.1 10^3/uL (0.0-0.2); ABSOLUTE EOSINOPHILS # (AUTO) 0.2 10^3/uL (0.0-0.6); ABSOLUTE LYMPHOCYTES (AUTO) 1.4 10^3/uL (0.5-4.7); ABSOLUTE MONOCYTES (AUTO) 0.5 10^3/uL (0.1-1.4); ABSOLUTE NEUT (AUTO) 3.3 10^3/uL (1.7-8.2); EOSINOPHILS % (AUTO) 3.2 % (0-6); HEMATOCRIT 38.6 % (37.9-51.0); HEMOGLOBIN 13.1 g/dL (13.5-17.0); LYMPHOCYTES % (AUTO) 25.1 % (13-45); MEAN CORPUSCULAR HEMOGLOBIN 29.6 pg (27.0-33.4); MEAN CORPUSCULAR HGB CONC 33.9 g/dL (32.0-36.0); MEAN CORPUSCULAR VOLUME 87 fl (80-97); MONOCYTES % (AUTO) 9.8 % (3-13); PLATELET COUNT 296 10^3/uL (150-450); RED BLOOD COUNT 4.42 10^6/uL (4.35-5.55); RED CELL DISTRIBUTION WIDTH 13.2 % (11.5-14.0); SEGMENTED NEUTROPHILS % (AUTO) 59.9 % (42-78); TOTAL CELLS COUNTED % (AUTO) 100 %; WHITE BLOOD COUNT 5.6 10^3/uL (4.0-10.5)
[2019-03-01 08:23] LABS: ALANINE AMINOTRANSFERASE 54 U/L (21-72); ALBUMIN 4.4 g/dL (3.5-5.0); ALKALINE PHOSPHATASE 65 U/L (38-126); ANION GAP 13 (5-19); ASPARTATE AMINO TRANSFERASE 29 U/L (17-59); BILIRUBIN,DIRECT 0.2 mg/dL (0.0-0.4); BILIRUBIN,TOTAL 0.6 mg/dL (0.2-1.3); BLOOD UREA NITROGEN 15 mg/dL (7-20); CALCIUM 10.2 mg/dL (8.4-10.2); CARBON DIOXIDE 21 mmol/L (22-30); CHLORIDE 107 mmol/L (98-107); GLUCOSE 105 mg/dL (75-110); POTASSIUM 4.1 mmol/L (3.6-5.0); SODIUM 141.2 mmol/L (137-145); TOTAL PROTEIN 7.7 g/dL (6.3-8.2)
[2019-03-01 08:44] VITALS: BP 160/75
[2019-03-01] MEDS ORDERED: LORAZEPAM 1 MG TABLET PO ONE (09:00)
[2019-03-01] MEDS: AMLODIPINE BESYLATE 10 MG TABLET PO SCH (09:40)
--- NOTE | 2019-03-22 15:28 | PDOC DISCHARGE SUMMARY ---
General - Admit/Disc Date/PCP Admission Date/Primary Care Provider: 02/21/19 15:35 BENJI MIRANDA MD Discharge Date: 03/01/19 - Discharge Diagnosis (1) Acute kidney injury Is this a current diagnosis for this admission?: Yes (2) Dehydration Is this a current diagnosis for this admission?: Yes (3) Obesity (BMI 30-39.9) Is this a current diagnosis for this admission?: No (4) Abdominal pain Is this a current diagnosis for this admission?: Yes (5) Hypertension Is this a current diagnosis for this admission?: Yes - Additional Information Resuscitation Status: Full Code Discharge Diet: As Tolerated Discharge Activity: Activity As Tolerated, Balance Activity w/Rest Prescriptions: Amlodipine Besylate [Norvasc 10 mg Tablet] 10 mg PO DAILY 30 Days #30 tablet Home Medications: Docusate Sodium [Colace 100 mg Capsule] 100 mg PO BID 02/21/19 Lidocaine/Prilocaine [Lidopril 2.5%-2.5% Cream-Dress] 1 each TP QID 02/21/19 Metoprolol Tartrate [Lopressor 25 mg Tablet] 25 mg PO Q12 02/21/19 Amlodipine Besylate [Norvasc 10 mg Tablet] 10 mg PO DAILY 30 Days #30 tablet 03/01/19 History of Present Illness History of Present Illness: JOSE MANUEL ZARCO JR is a 43 year old male with history of stage I prostate cancer, coronary artery disease, hypertension who presented to the emergency room because of abdominal pain, nausea and vomiting. Patient underwent robotic l aparoscopic prostatectomy by Dr. Zaragoza at [facility] in [place] on 02/13/2019. He said the procedure itself was uneventful and he was discharged home the next day. Post surgery he was taking pain medications including OxyContin and baclofen. He admits that he was not drinking enough and he does not have a appetite eater so is not eating as much as well. He also has not had a bowel movement for the last 8 days since surgery. Yesterday he started having nausea and vomiting with abdominal discomfort so he decided to go to the emergency room. He denies any chest pains no shortness of breath. Initial evaluation showed elevated BUN of 35, creatinine of 5.03 with EGFR of 15. On November 10 his BUN was 21, creatinine of 1.21 and EGFR greater than 60 which is near normal. He also has borderline elevated sodium at 147.6, bicarbonate of 30 and hemoglobin of 14.5. His urinalysis was negative for protein, has some moderate blood with RBC of 2, only WBC of 8 with trace leukocyte esterase. He had a CT scan of the abdomen without contrast yesterday which showed postsurgical changes but no evidence of hydronephrosis, hydroureter or ureteral stones. There was moderate amount of stool. The emergency room provider contacted [facility] urology and deemed that the patient does not need to be transferred. In the emergency room he was given IV fluid boluses with 0.9 normal saline x2 L. IV fluids are still going at 200 mL an hour. Since admission he made 2300 mL of urine. He said he is drinking water may be about 2 to 3 L since he came in. Today his BUN is 30, creatinine of 4.36 and EGFR of 18. Hemoglobin is now 12.1, sodium of 145.4. He was given magnesium citrate in the emergency room and made a little movement but still feeling bloated. Hospital Course Hospital Course: (1) Acute kidney injury Improved. Nonoliguric, most likely prerenal, due to dehydration. He is status post robotic laparoscopic prostatectomy by Dr. Zaragoza at [facility] in 02/13/2019. Post surgery patient had a low appetite and admits to not eating or taking in fluids. CT abdomen with contrast did not reveal any hydronephrosis, hydroureter or ureteral stones septum or postsurgical changes. Patient has an indwelling Escalera cath placed on 02/13/2019 post prostatectomy. He was admitted to telemetry, started on IV fluids guided by volume status. Electrolytes and volume status monitored. Nephrology was consulted. Patient had significant improvement of his ITZEL with creatinine trending down to 1.79 form baseline of 1.2 One day prior to discharge patient mentioned to me that he has an appointment with his urologist on 03/01/2019 for the removal of Escalera cath. I updated him about his progress and advised him that his creatinine is not back to baseline yet. Had called his urologist Dr. Zaragoza's appointment on 03/01/[address] Zaragoza his urologist from [facility] contacted his PCP to advise me on removing his Escalera on 03/01/2019. Advised to give patient 1 dose of ciprofloxacin a day prior to Escalera removal and 1 dose of ciprofloxacin on the day of Escalera removal. On March 01, 2019 around 7 AM Escalera cath was removed by primary nurse as per his urologist request but unfortunately after removing the cath patient started having hematuria. His urologist at [facility] was contacted who stated to discharge patient and sent him over to his office. Patient agreed with the plan. Repeat H&H post hematuria hemoglobin of 12.3 up from 12.1 from prior day. He was asymptomatic except for hematuria and being anxious. His urologist office was contacted and made aware of the patient is coming to see him right away. He was also asked to follow-up with dental mechanic as soon as possible and keep well-hydrated and avoid nephrotoxic meds. (2) Dehydration Volume resuscitation guided by volume status. (3) Obesity (BMI 30-39.9) Diet and lifestyle modification recommended. (4) Abdominal pain Solved. Supportive measures. (5) HTN Started on amlodipine and metoprolol. Outpatient PCP follow-up. Physical Exam Vital Signs: Temp Pulse Resp BP Pulse Ox 98.8 F 92 16 160/75 H 98 03/01/19 08:43 03/01/19 08:43 03/01/19 08:43 03/01/19 08:43 03/01/19 08:43 General appearance: PRESENT: no acute distress, well-developed, well-nourished Head exam: PRESENT: atraumatic, normocephalic Eye exam: PRESENT: conjunctiva pink, EOMI, PERRLA. ABSENT: scleral icterus Ear exam: PRESENT: normal external ear exam Mouth exam: PRESENT: moist, tongue midline Neck exam: ABSENT: carotid bruit, JVD, lymphadenopathy, thyromegaly Respiratory exam: PRESENT: clear to auscultation souleymane. ABSENT: rales, rhonchi, wheezes Cardiovascular exam: PRESENT: RRR. ABSENT: diastolic murmur, rubs, systolic murmur Pulses: PRESENT: normal dorsalis pedis pul Vascular exam: PRESENT: normal capillary refill GI/Abdominal exam: PRESENT: normal bowel sounds, soft. ABSENT: distended, guarding, mass, organolmegaly, rebound, tenderness Rectal exam: PRESENT: deferred Gentrourinary exam: PRESENT: other - hematuria. Extremities exam: PRESENT: full ROM. ABSENT: calf tenderness, clubbing, pedal edema Neurological exam: PRESENT: alert, awake, oriented to person, oriented to place, oriented to time, oriented to situation, CN II-XII grossly intact. ABSENT: motor sensory deficit Psychiatric exam: PRESENT: anxious, appropriate affect, normal mood. ABSENT: ho micidal ideation, suicidal ideation Skin exam: PRESENT: dry, intact, warm. ABSENT: cyanosis, rash Results Laboratory Results: 03/01/19 07:44 03/01/19 07:44 02/21/19 09:45 Creatine Kinase 103 Impressions: Acute Abdomen Series 02/21/19 10:39 IMPRESSION: Marked constipation. Extensive gas in the abdominal wall likely related to recent surgery. Abdomen/Pelvis CT 02/21/19 14:27 IMPRESSION: Postsurgical changes from robotic prostatectomy. No CT evidence of hydronephrosis, hydroureter or urinary stones. Escalera catheter in good positioning in the bladder. 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 Qualifiers - * PATIENT BEING DISCHARGED WITH ANY OF THE FOLLOWING DIAGNOSIS: No Acute Heart Failure - Is this a Heart Failure Patient?: No
== END 2019-03-01 10:03 | disposition home or self-care (01) | DRG 683 ==
LOC: ER 08:01 → EEVIPCON 15:35 → EH 15:35 → 4N 17:21
PROVIDERS: ADMIT Hospitalist; ATTEND Hospitalist
DX: N17.9 Acute kidney failure, unspecified (principal); E87.0 Hyperosmolality and hypernatremia; I10 Essential (primary) hypertension; I25.10 Atherosclerotic heart disease of native coronary artery without angina pectoris; C61 Malignant neoplasm of prostate; E78.5 Hyperlipidemia, unspecified; E86.0 Dehydration; K59.03 Drug induced constipation; E66.9 Obesity, unspecified; I25.2 Old myocardial infarction; Z79.1 Long term (current) use of non-steroidal anti-inflammatories (NSAID); Z68.34 Body mass index [BMI] 34.0-34.9, adult; Z90.79 Acquired absence of other genital organ(s); Z82.49 Family history of ischemic heart disease and other diseases of the circulatory system; Z83.3 Family history of diabetes mellitus; Z79.899 Other long term (current) drug therapy; Z80.3 Family history of malignant neoplasm of breast; Z80.1 Family history of malignant neoplasm of trachea, bronchus and lung
CPT/HCPCS: 36415; 74022; 74176; 76775; 80048; 80053; 81001; 82550; 83735; 85025; 93005; 93010; 96360; 96361; 99285; J0360; J1200; J1644; J2060; J3490; J7030; S0119

== ENCOUNTER 2019-03-07 08:12 | Emergency (ER) | payer BC ==
[2019-03-07] MEDS ORDERED: NORMAL SALINE 1000 ML 1,000 ML IV ONE ×2 (09:23→10:30)
--- NOTE | 2019-03-07 09:24 | ER Document Report ---
ED General - General Chief Complaint: General Weakness Stated Complaint: GENERAL WEAKNESS Time Seen by Provider: 03/07/19 08:45 Primary Care Provider: BENJI MIRANDA MD [NO LOCAL MD] - Follow up as needed Notes: 43 year old male with history of stage I prostate cancer status post prostatectomy on 02/13/2019, coronary artery disease, hypertension presents to the emergency department with chief complaint of general malaise and weakness. He states that he really has not had an appetite since his surgery and had a recent admission here at [facility] for an acute kidney injury. He was discharged after an unremarkable stay. Today he says he is "just feeling bad and weak" and has no other complaints. He denies fevers, denies headache or neck stiffness, denies dizziness, lightheadedness, numbness or paresthesias in his extremities, denies acute shortness of breath or chest pain, denies abdominal pain, denies nausea or vomiting, complains of reduced appetite and p.o. intake, says he is having frequent urination most likely due to the surgery, denies abnormal penile discharge or testicular pain, his surgical scars are healing without any evidence of infection, no other complaints TRAVEL OUTSIDE OF THE [place] IN LAST 30 DAYS: No - Related Data Allergies/Adverse Reactions: hydralazine Allergy (Intermediate, Verified 03/07/19 08:13) Edema Past Medical History - Social History Smoking Status: Unknown if Ever Smoked Chew tobacco use (# tins/day): No Frequency of alcohol use: None Drug Abuse: None Family History: Arthritis, CAD, CVA, DM, Hyperlipidemia, Hypertension, Malignancy, Thyroid Disfunction Patient has suicidal ideation: No Patient has homicidal ideation: No - Past Medical History Cardiac Medical History: Reports: Hx Coronary Artery Disease, Hx Heart Attack - 2010, Hx Hypercholesterolemia, Hx Hypertension Renal/ Medical History: Denies: Hx Peritoneal Dialysis Malignancy Medical History: Reports Hx Prostate Cancer Musculoskeletal Medical History: Reports Hx Arthritis, Reports Hx Musculoskeletal Deformity, Reports Hx Musculoskeletal Trauma Traumatic Medical History: Reports: Hx Fractures - Wrist Past Surgical History: Reports: Hx Cardiac Catheterization, Hx Orthopedic Surgery - RIGHT WRIST, Other - Robotic laparoscopic prostatectomy, 02/13/[address] Zaragoza - Immunizations Immunizations up to date: Yes Hx Diphtheria, Pertussis, Tetanus Vaccination: Yes Review of Systems - Review of Systems Constitutional: See HPI EENT: See HPI Cardiovascular: See HPI Respiratory: See HPI Gastrointestinal: See HPI Genitourinary: See HPI Male Genitourinary: No symptoms reported Musculoskeletal: No symptoms reported Skin: No symptoms reported Hematologic/Lymphatic: No symptoms reported Neurological/Psychological: See HPI Physical Exam - Vital signs Vitals: Temp Pulse Resp BP Pulse Ox 98.3 F 106 H 18 136/86 H 98 03/07/19 08:16 03/07/19 08:16 03/07/19 08:16 03/07/19 08:16 03/07/19 08:16 - Notes Notes: PHYSICAL EXAMINATION: Reviewed vital signs and charting by RN GENERAL: Alert, interacts well. No acute distress. HEAD: Normocephalic, atraumatic. EYES: Pupils equal and round. Extraocular movements intact. ENT: Oral mucosa moist, tongue midline. NECK: Full range of motion. Trachea midline. LUNGS: Clear to auscultation bilaterally, no wheezes, rales, or rhonchi. No respiratory distress. HEART: Regular rate and rhythm. No murmur ABDOMEN: soft, non-tender. No distention. Bowel sounds present EXTREMITIES: Moves all 4 extremities spontaneously. No edema, No cyanosis. PSYCH: Normal affect, normal mood. SKIN: Warm, dry, normal turgor. No rashes or lesions noted. Course - Re-evaluation Re-evalutation: 03/07/19 09:23 Overall well-appearing but patient states he is feeling very poor. Some basic blood work has been ordered with analysis. I will give him IV fluids. 03/07/19 10:27 Lab work back. Creatinine 1.62 which continues to down per trend from his previous admission, his most recent creatinine on 03/01/2019 was 1.67. Lipase 420 but no clear evidence of pancreatitis and does not meet lab threshold. Urinalysis negative for UTI. I will give patient 1 more liter of IV fluids. At this time there is no acute pathology warranting hospitalization and patient will be stable for discharge. 03/07/19 10:28 03/07/19 12:40 Patient is persistently tachycardic that is unexplained. Because patient had recent surgery I cannot PERC him out and a d-dimer is can get obtained. Patient states that he has to leave and I told him that if so he will be leaving AGAINST MEDICAL ADVICE without the results of this in case we need to do a CTA chest. Patient understood these risks and is of sound mind and will be leaving AGAINST MEDICAL ADVICE. I explained to him the risks to include syncope, cardiac arrest, . If the d-dimer is positive I will give him a call and he said he will come back for CTA and further work-up. - Vital Signs Vital signs: Temp Pulse Resp BP Pulse Ox 98.3 F 111 H 20 137/84 H 100 03/07/19 11:52 03/07/19 11:52 03/07/19 11:52 03/07/19 11:52 03/07/19 11:52 - Laboratory Result Diagrams: 03/07/19 09:23 03/07/19 09:23 Laboratory results interpreted by me: 03/07/19 03/07/19 09:23 09:23 RBC 4.04 L Hgb 11.9 L Hct 35.3 L Plt Count 509 H Creatinine 1.62 H Est GFR ( Amer) 56 L Est GFR (Non-Af Amer) 47 L Calcium 10.8 H Lipase 420.3 H Discharge - Discharge Clinical Impression: Weakness, Tachycardia Condition: Stable Disposition: AGAINST MEDICAL ADVICE Additional Instructions: You are seen in emergency department this morning for weakness. Is unclear why you are having the symptoms but all of your lab work is reassuring and your creatinine continues to trend down. Because your heart rate is fast we want to get an additional lab and make sure that he did not have a blood clot. But because you are to go to your appointment you will be leaving AGAINST MEDICAL ADVICE. I will call you if the result is positive and you need to return for further testing. Otherwise please continue to stay hydrated. Also, if you develop severe pain with urination, acute dizziness or lightheadedness, passout, have severe chest pain or abdominal pain, acute shortness of breath, bloody vomi tus or bloody diarrhea, or have any other concerning symptoms please do not hesitate to return to the emergency department. Forms: Return to Work Referrals: BENJI MIRANDA MD [NO LOCAL MD] - Follow up as needed
[2019-03-07 09:48] LABS: APPEARANCE,URINE CLEAR; BILIRUBIN,URINE NEGATIVE (NEGATIVE); COLOR,URINE STRAW; GLUCOSE, URINE NEGATIVE (NEGATIVE); KETONES,URINE NEGATIVE (NEGATIVE); LEUKOCYTE ESTERASE,URINE NEGATIVE (NEGATIVE); NITRITE,URINE NEGATIVE (NEGATIVE); PROTEIN,URINE NEGATIVE (NEGATIVE); URINE SPECIFIC GRAVITY 1.006; UROBILINOGEN,URINE NEGATIVE mg/dL (<2.0)
[2019-03-07 09:53] LABS: ABSOLUTE BASOPHILS # (AUTO) 0.1 10^3/uL (0.0-0.2); ABSOLUTE EOSINOPHILS # (AUTO) 0.2 10^3/uL (0.0-0.6); ABSOLUTE LYMPHOCYTES (AUTO) 1.9 10^3/uL (0.5-4.7); ABSOLUTE MONOCYTES (AUTO) 0.7 10^3/uL (0.1-1.4); ABSOLUTE NEUT (AUTO) 3.4 10^3/uL (1.7-8.2); BASOPHILS % (AUTO) 1.4 % (0-2); EOSINOPHILS % (AUTO) 3.6 % (0-6); HEMATOCRIT 35.3 % (37.9-51.0); HEMOGLOBIN 11.9 g/dL (13.5-17.0); LYMPHOCYTES % (AUTO) 30.5 % (13-45); MEAN CORPUSCULAR HEMOGLOBIN 29.5 pg (27.0-33.4); MEAN CORPUSCULAR HGB CONC 33.7 g/dL (32.0-36.0); MEAN CORPUSCULAR VOLUME 87 fl (80-97); MONOCYTES % (AUTO) 10.4 % (3-13); PLATELET COUNT 509 10^3/uL (150-450); RED BLOOD COUNT 4.04 10^6/uL (4.35-5.55); SEGMENTED NEUTROPHILS % (AUTO) 54.1 % (42-78); TOTAL CELLS COUNTED % (AUTO) 100 %; WHITE BLOOD COUNT 6.4 10^3/uL (4.0-10.5)
[2019-03-07 10:03] LABS: ALANINE AMINOTRANSFERASE 33 U/L (21-72); ALBUMIN 4.8 g/dL (3.5-5.0); ALKALINE PHOSPHATASE 76 U/L (38-126); ANION GAP 13 (5-19); ASPARTATE AMINO TRANSFERASE 21 U/L (17-59); BILIRUBIN,DIRECT 0.4 mg/dL (0.0-0.4); BILIRUBIN,TOTAL 0.5 mg/dL (0.2-1.3); BLOOD UREA NITROGEN 15 mg/dL (7-20); CALCIUM 10.8 mg/dL (8.4-10.2); CARBON DIOXIDE 27 mmol/L (22-30); CHLORIDE 101 mmol/L (98-107); GLUCOSE 105 mg/dL (75-110); LIPASE 420.3 U/L (23-300); POTASSIUM 4.7 mmol/L (3.6-5.0); SODIUM 140.9 mmol/L (137-145); TOTAL PROTEIN 8.1 g/dL (6.3-8.2)
[2019-03-07 11:55] VITALS: BP 137/84
--- NOTE | 2019-03-07 15:46 | EKG REPORT ---
SEVERITY:- BORDERLINE ECG - SINUS TACHYCARDIA NONSPECIFIC ST-T CHANGES- INFERIOR LEADS : Confirmed by: Mega Brown MD 07-Mar-2019 15:45:26
== END 2019-03-07 12:48 | disposition left against medical advice (07) ==
LOC: ER 08:12
DX: R53.1 Weakness (principal); R00.0 Tachycardia, unspecified; R53.81 Other malaise; R35.0 Frequency of micturition; R63.0 Anorexia; I10 Essential (primary) hypertension; I25.10 Atherosclerotic heart disease of native coronary artery without angina pectoris; Z85.46 Personal history of malignant neoplasm of prostate; Z90.79 Acquired absence of other genital organ(s); Z88.8 Allergy status to other drugs, medicaments and biological substances; Z53.20 Procedure and treatment not carried out because of patient's decision for unspecified reasons
CPT/HCPCS: 93005; 99283; 96360; 36415; 83690; 85025; 80053; 81001; 85379; 93010; J7030

== ENCOUNTER 2019-03-07 14:43 | Emergency (ER) | payer BC ==
--- NOTE | 2019-03-07 15:07 | ER Document Report ---
ED Medical Screen (RME) - General Chief Complaint: Abnormal Lab Results Stated Complaint: ABNORMAL LABS Time Seen by Provider: 03/07/19 14:56 Mode of Arrival: Ambulatory Information source: Patient Notes: 43-year-old male presented to ED after he was called by provider Leandro CHAVEZ and told to return to the ED to have a CTA completed on his chest. He was seen by this provider earlier today and he had a positive d-dimer. Patient has a history of prostate cancer with a prostatectomy on February [id number]. He also had a history of coronary artery disease and had high blood pressure while in the emergency room. Patient was complaining of no appetite. Multiple labs were completed and he did have a positive d-dimer. I have greeted and performed a rapid initial assessment of this patient. A comprehensive ED assessment and evaluation of the patient, analysis of test results and completion of medical decision making process will be conducted by an additional ED providers. Dictation of this chart was performed using voice recognition software; therefore, there may be some unintended grammatical errors. TRAVEL OUTSIDE OF THE [place] IN LAST 30 DAYS: No - Related Data Allergies/Adverse Reactions: hydralazine Allergy (Intermediate, Verified 03/07/19 14:45) Edema Past Medical History - Social History Frequency of alcohol use: None Drug Abuse: None - Past Medical History Cardiac Medical History: Reports: Hx Coronary Artery Disease, Hx Heart Attack - 2010, Hx Hypercholesterolemia, Hx Hypertension Renal/ Medical History: Denies: Hx Peritoneal Dialysis Malignancy Medical History: Reports Hx Prostate Cancer Musculoskeltal Medical History: Reports Hx Arthritis, Reports Hx Musculoskeletal Deformity, Reports Hx Musculoskeletal Trauma Traumatic Medical History: Reports: Hx Fractures - Wrist Past Surgical History: Reports: Hx Cardiac Catheterization, Hx Orthopedic Surgery - RIGHT WRIST, Other - Robotic laparoscopic prostatectomy, 02/13/[address] Zaragoza - Immunizations Immunizations up to date: Yes Hx Diphtheria, Pertussis, Tetanus Vaccination: Yes Physical Exam - Vital signs Vitals: Temp Pulse Resp BP Pulse Ox 98.8 F 102 H 15 140/83 H 97 03/07/19 14:50 03/07/19 14:50 03/07/19 14:50 03/07/19 14:50 03/07/19 14:50 Course - Vital Signs Vital signs: Temp Pulse Resp BP Pulse Ox 98.8 F 102 H 15 140/83 H 97 03/07/19 14:50 03/07/19 14:50 03/07/19 14:50 03/07/19 14:50 03/07/19 14:50
--- NOTE | 2019-03-07 16:29 | ER Document Report ---
ED General - General Chief Complaint: Abnormal Lab Results Stated Complaint: ABNORMAL LABS Time Seen by Provider: 03/07/19 14:56 Mode of Arrival: Ambulatory Notes: 43-year-old male presents to the ER after I called him back in for a positive d- dimer of 3.31. Prior to his discharge he was tachycardic in the 115 range and had a previous prostatectomy on February 13, 2019. The tachycardia was unexplained even after fluid resuscitation so the recommendation was to get a d-dimer but patient had to leave and was signed out AGAINST MEDICAL ADVICE. I did tell him I will call him if it was positive any said he would return for follow on imaging. Patient has returned and he is still tachycardic with no other changes from previous visit. Still denies shortness of breath chest pain. I told patient that we are going to do a CTA chest and he adamantly refused because of the concern for acute kidney injury secondary to the dye. I explained to him that the risk is there but it is typically transient and if we prehydrated with IV fluids the risk is decreased. He still refused because he said his sister had a severe allergic reaction so a VQ scan was ordered. TRAVEL OUTSIDE OF THE [place] IN LAST 30 DAYS: No - Related Data Allergies/Adverse Reactions: hydralazine Allergy (Intermediate, Verified 03/07/19 14:45) Edema Past Medical History - General Information source: Patient - Social History Smoking Status: Never Smoker Frequency of alcohol use: None Drug Abuse: None Family History: Arthritis, CAD, CVA, DM, Hyperlipidemia, Hypertension, Malignancy, Thyroid Disfunction Patient has suicidal ideation: No Patient has homicidal ideation: No - Past Medical History Cardiac Medical History: Reports: Hx Coronary Artery Disease, Hx Heart Attack - 2010, Hx Hypercholesterolemia, Hx Hypertension Renal/ Medical History: Denies: Hx Peritoneal Dialysis Malignancy Medical History: Reports Hx Prostate Cancer Musculoskeletal Medical History: Reports Hx Arthritis, Reports Hx Musculoskeletal Deformity, Reports Hx Musculoskeletal Trauma Traumatic Medical History: Reports: Hx Fractures - Wrist Past Surgical History: Reports: Hx Cardiac Catheterization, Hx Orthopedic Surgery - RIGHT WRIST, Other - Robotic laparoscopic prostatectomy, 02/13/[address] Zaragoza - Immunizations Immunizations up to date: Yes Hx Diphtheria, Pertussis, Tetanus Vaccination: Yes Review of Systems - Review of Systems Constitutional: No symptoms reported EENT: No symptoms reported Cardiovascular: See HPI Respiratory: See HPI Gastrointestinal: No symptoms reported Genitourinary: No symptoms reported Male Genitourinary: No symptoms reported Musculoskeletal: No symptoms reported Skin: No symptoms reported Hematologic/Lymphatic: No symptoms reported Neurological/Psychological: No symptoms reported Physical Exam - Vital signs Vitals: Temp Pulse Resp BP Pulse Ox 98.8 F 102 H 15 140/83 H 97 03/07/19 14:50 03/07/19 14:50 03/07/19 14:50 03/07/19 14:50 03/07/19 14:50 - Notes Notes: PHYSICAL EXAMINATION: Reviewed vital signs and charting by RN GENERAL: Alert, interacts well. No acute distress. HEAD: Normocephalic, atraumatic. EYES: Pupils equal and round. Extraocular movements intact. ENT: Oral mucosa moist, tongue midline. NECK: Full range of motion. Trachea midline. LUNGS: Clear to auscultation bilaterally, no wheezes, rales, or rhonchi. No respiratory distress. HEART: Regular rate and rhythm. No murmur ABDOMEN: soft, non-tender. No distention. Bowel sounds present EXTREMITIES: Moves all 4 extremities spontaneously. No edema, No cyanosis. PSYCH: Normal affect, normal mood. SKIN: Warm, dry, normal turgor. No rashes or lesions noted. Course - Re-evaluation Re-evalutation: 03/07/19 17:41 Patient presents back after leaving AMA. Patient declined a CTA chest due to fear of ITZEL risk. Patient received a lung VQ scan which was negative for pulmonary emboli. Follow-up chest x-ray was normal as well. At this time patient is stable for discharge home. - Vital Signs Vital signs: Temp Pulse Resp BP Pulse Ox 98.8 F 102 H 15 140/83 H 97 03/07/19 14:50 03/07/19 14:50 03/07/19 14:50 03/07/19 14:50 03/07/19 14:50 Discharge - Discharge Clinical Impression: Tachycardia Condition: Good Disposition: HOME, SELF-CARE Additional Instructions: You were seen in the emergency department after following up from earlier today. The VQ scan was negative for pulmonary embolism and repeat chest x-ray was normal. This is all very reassuring. It is unclear why your heart rate is fast but you can check it periodically at home while you are resting comfortable. If you develop acute shortness of breath, chest pain 1 of your legs, pain with movement in 1 your legs with swelling, you passout, or if any other concerning symptoms please merely return to the emergency department.
--- NOTE | 2019-03-07 17:19 | RADIOLOGY REPORT (SQ) ---
EXAM DESCRIPTION: NM LUNG VENT/PERF SCAN COMPLETED DATE/TIME: 03/07/2019 5:03 pm REASON FOR STUDY: tachycardia/recent surgery COMPARISON: None. RADIONUCLIDE AND DOSE: 5 millicuries TC-99m MAA Intravenous 30 millicuries TC-99m DTPA Inhaled aerosol TECHNIQUE: Eight views of the lungs acquired post ventilation of DTPA aerosol. Eight matching views of the lungs acquired following injection of MAA. LIMITATIONS: None. FINDINGS: VENTILATION: Symmetric and homogeneous distribution of DTPA aerosol during ventilatory pha se. No significant areas of photopenia. PERFUSION: Perfusion images with normal homogenous activity and no wedge-shaped or segmental defects. No ventilation-perfusion mismatches. OTHER: No other significant finding. IMPRESSION: NORMAL VENTILATION-PERFUSION LUNG SCAN. NEGATIVE FOR PULMONARY EMBOLI. TECHNICAL DOCUMENTATION: JOB ID: [id number] [email or web address]- All Rights Reserved Reading location - IP/workstation name: [email or web address]
--- NOTE | 2019-03-07 17:19 | RADIOLOGY REPORT (SQ) ---
EXAM DESCRIPTION: CHEST 2 VIEWS COMPLETED DATE/TIME: 03/07/2019 5:00 pm REASON FOR STUDY: tachycardia COMPARISON: 11/10/2018 EXAM PARAMETERS: NUMBER OF VIEWS: two views TECHNIQUE: Digital Frontal and Lateral radiographic views of the chest acquired. RADIATION DOSE: NA LIMITATIONS: none FINDINGS: LUNGS AND PLEURA: No opacities, masses or pneumothorax. No pleural effusion. MEDIASTINUM AND HILAR STRUCTURES: No masses or contour abnormalities. HEART AND VASCULAR STRUCTURES: Heart normal size. No evidence for failure. BONES: No acute findings. HARDWARE: None in the chest. OTHER: No other significant finding. IMPRESSION: NO ACUTE RADIOGRAPHIC FINDING IN THE CHEST. TECHNICAL DOCUMENTATION: JOB ID: [id number] [employer]- All Rights Reserved Reading location - IP/workstation name: [email or web address]
[2019-03-07 18:10] VITALS: BP 144/82
== END 2019-03-07 18:30 | disposition home or self-care (01) ==
LOC: ER 14:43
DX: R00.0 Tachycardia, unspecified (principal); I25.10 Atherosclerotic heart disease of native coronary artery without angina pectoris; I10 Essential (primary) hypertension; Z90.79 Acquired absence of other genital organ(s); Z85.46 Personal history of malignant neoplasm of prostate; Z88.8 Allergy status to other drugs, medicaments and biological substances
CPT/HCPCS: 99284; 71046; 78582; A9540; A9567; Q9969

== ENCOUNTER → 2019-03-15 | Outpatient (CLI) | payer BC ==
[2019-03-15 10:20] LABS: HEMATOCRIT 34.1 % (37.9-51.0); HEMOGLOBIN 11.5 g/dL (13.5-17.0); MEAN CORPUSCULAR HEMOGLOBIN 29.1 pg (27.0-33.4); MEAN CORPUSCULAR HGB CONC 33.8 g/dL (32.0-36.0); MEAN CORPUSCULAR VOLUME 86 fl (80-97); PLATELET COUNT 368 10^3/uL (150-450); RED BLOOD COUNT 3.96 10^6/uL (4.35-5.55); WHITE BLOOD COUNT 5.5 10^3/uL (4.0-10.5)
[2019-03-15 10:23] LABS: APPEARANCE,URINE CLEAR; BILIRUBIN,URINE NEGATIVE (NEGATIVE); GLUCOSE, URINE NEGATIVE (NEGATIVE); KETONES,URINE NEGATIVE (NEGATIVE); LEUKOCYTE ESTERASE,URINE NEGATIVE (NEGATIVE); NITRITE,URINE NEGATIVE (NEGATIVE); PROTEIN,URINE NEGATIVE (NEGATIVE); URINE SPECIFIC GRAVITY 1.002; UROBILINOGEN,URINE NEGATIVE mg/dL (<2.0)
[2019-03-15 10:27] LABS: COLOR,URINE STRAW
[2019-03-15 10:42] LABS: ANION GAP 12 (5-19); BLOOD UREA NITROGEN 12 mg/dL (7-20); CARBON DIOXIDE 25 mmol/L (22-30); CHLORIDE 98 mmol/L (98-107); GLUCOSE 94 mg/dL (75-110); POTASSIUM 3.9 mmol/L (3.6-5.0); SODIUM 135.3 mmol/L (137-145)
== END ==
LOC: OD 09:33
PROVIDERS: ATTEND Internal Medicine Nephrology
DX: N17.9 Acute kidney failure, unspecified (principal); Z90.79 Acquired absence of other genital organ(s)
CPT/HCPCS: 36415; 80048; 81001; 85027

== ENCOUNTER 2019-03-25 10:28 | Emergency (ER) | payer BC ==
--- NOTE | 2019-03-25 10:53 | ER Document Report ---
ED Medical Screen (RME) - General Chief Complaint: Back Pain Stated Complaint: BACK PAIN Time Seen by Provider: 03/25/19 10:41 Primary Care Provider: SEBLE LEMOS MD [Primary Care Provider] - Follow up as needed Mode of Arrival: Ambulatory Information source: Patient Notes: 43-year-old male presented to ED for complaint of bilateral flank and abdominal pain. He states is been hurting off and on for about a month and a half. He states he was diagnosed with prostate cancer in his prostate removed and renal sufficiency in January and his pain is been off and on since then. He denies any nausea or vomiting he states he does not know if this is just muscle pain or his normal kidney pain. He also has pain across his abdomen states he does not know if that is from his prostate surgery or if this is something more. He does have hyperactive bowel sounds at this time. He was recently diagnosed with constipation but states he is having bowel movements freely now. I have greeted and performed a rapid initial assessment of this patient. A comprehensive ED assessment and evaluation of the patient, analysis of test results and completion of medical decision making process will be conducted by an additional ED providers. Dictation of this chart was performed using voice recognition software; therefore, there may be some unintended grammatical errors. TRAVEL OUTSIDE OF THE [place] IN LAST 30 DAYS: No - Related Data Allergies/Adverse Reactions: hydralazine Allergy (Intermediate, Verified 03/10/19 11:04) Edema Past Medical History - Past Medical History Cardiac Medical History: Reports: Hx Coronary Artery Disease, Hx Heart Attack - 2010, Hx Hypercholesterolemia, Hx Hypertension Renal/ Medical History: Denies: Hx Peritoneal Dialysis Malignancy Medical History: Reports Hx Prostate Cancer Musculoskeltal Medical History: Reports Hx Arthritis, Reports Hx Musculoskeletal Deformity, Reports Hx Musculoskeletal Trauma Traumatic Medical History: Reports: Hx Fractures - Wrist Past Surgical History: Reports: Hx Cardiac Catheterization, Hx Orthopedic Surgery - RIGHT WRIST, Other - Robotic laparoscopic prostatectomy, 02/13/[address] Zaragoza - Immunizations Immunizations up to date: Yes Hx Diphtheria, Pertussis, Tetanus Vaccination: Yes Physical Exam - Vital signs Vitals: Temp Pulse Resp BP Pulse Ox 98.4 F 67 16 139/81 H 98 03/25/19 10:35 03/25/19 10:35 03/25/19 10:35 03/25/19 10:35 03/25/19 10:35 Course - Vital Signs Vital signs: Temp Pulse Resp BP Pulse Ox 98.4 F 67 16 139/81 H 98 03/25/19 10:35 03/25/19 10:35 03/25/19 10:35 03/25/19 10:35 03/25/19 10:35 Doctor's Discharge - Discharge Referrals: SEBLE LEMOS MD [Primary Care Provider] - Follow up as needed
[2019-03-25 11:20] LABS: APPEARANCE,URINE CLEAR; BILIRUBIN,URINE NEGATIVE (NEGATIVE); COLOR,URINE STRAW; GLUCOSE, URINE NEGATIVE (NEGATIVE); KETONES,URINE NEGATIVE (NEGATIVE); LEUKOCYTE ESTERASE,URINE NEGATIVE (NEGATIVE); NITRITE,URINE NEGATIVE (NEGATIVE); PROTEIN,URINE NEGATIVE (NEGATIVE); URINE SPECIFIC GRAVITY 1.004; UROBILINOGEN,URINE NEGATIVE mg/dL (<2.0)
[2019-03-25 11:33] LABS: ABSOLUTE BASOPHILS # (AUTO) 0.1 10^3/uL (0.0-0.2); ABSOLUTE EOSINOPHILS # (AUTO) 0.1 10^3/uL (0.0-0.6); ABSOLUTE LYMPHOCYTES (AUTO) 1.6 10^3/uL (0.5-4.7); ABSOLUTE MONOCYTES (AUTO) 0.5 10^3/uL (0.1-1.4); ABSOLUTE NEUT (AUTO) 2.9 10^3/uL (1.7-8.2); BASOPHILS % (AUTO) 1.5 % (0-2); EOSINOPHILS % (AUTO) 2.9 % (0-6); HEMATOCRIT 34.2 % (37.9-51.0); HEMOGLOBIN 11.6 g/dL (13.5-17.0); LYMPHOCYTES % (AUTO) 30.1 % (13-45); MEAN CORPUSCULAR HEMOGLOBIN 29.3 pg (27.0-33.4); MEAN CORPUSCULAR HGB CONC 33.8 g/dL (32.0-36.0); MEAN CORPUSCULAR VOLUME 87 fl (80-97); MONOCYTES % (AUTO) 9.8 % (3-13); PLATELET COUNT 271 10^3/uL (150-450); RED BLOOD COUNT 3.94 10^6/uL (4.35-5.55); RED CELL DISTRIBUTION WIDTH 13.5 % (11.5-14.0); SEGMENTED NEUTROPHILS % (AUTO) 55.7 % (42-78); TOTAL CELLS COUNTED % (AUTO) 100 %; WHITE BLOOD COUNT 5.2 10^3/uL (4.0-10.5)
[2019-03-25 11:47] LABS: ALANINE AMINOTRANSFERASE 23 U/L (21-72); ALKALINE PHOSPHATASE 61 U/L (38-126); ANION GAP 10 (5-19); ASPARTATE AMINO TRANSFERASE 18 U/L (17-59); BILIRUBIN,DIRECT 0.1 mg/dL (0.0-0.4); BILIRUBIN,TOTAL 0.4 mg/dL (0.2-1.3); BLOOD UREA NITROGEN 7 mg/dL (7-20); CALCIUM 9.5 mg/dL (8.4-10.2); CARBON DIOXIDE 25 mmol/L (22-30); CHLORIDE 105 mmol/L (98-107); GLUCOSE 91 mg/dL (75-110); LIPASE 255.5 U/L (23-300); POTASSIUM 3.5 mmol/L (3.6-5.0); SODIUM 139.7 mmol/L (137-145); TOTAL PROTEIN 6.7 g/dL (6.3-8.2)
--- NOTE | 2019-03-25 12:46 | ER Document Report ---
ED General - General Chief Complaint: Back Pain Stated Complaint: BACK PAIN Time Seen by Provider: 03/25/19 10:41 Primary Care Provider: SEBLE LEMOS MD [Primary Care Provider] - Follow up as needed Mode of Arrival: Ambulatory TRAVEL OUTSIDE OF THE [place] IN LAST 30 DAYS: No - HPI Notes: Patient is a 43-year-old gentleman comes into the emergency department for evaluation of lower back/flank pain. He states is been present for several weeks. It happens intermittently. It is exacerbated by movement. He states it hurts a lot at work. He denies any bowel or bladder incontinence, no saddle anesthesia, no focal numbness or weakness. Denies any fevers or chills. He is urinating slightly less than normal, but his physician told him he was drinking too much water and he needed to stop. Primarily the patient is concerned because he has a history of prostate cancer, status post prostatectomy. He had severe constipation and renal insufficiency following surgery, so he is concerned that his kidney function could be off. Describes his pain as an aching, is resistant to taking anything for it secondary to the issues he had with pain medications recently. - Related Data Allergies/Adverse Reactions: hydralazine Allergy (Intermediate, Verified 03/10/19 11:04) Edema Past Medical History - General Information source: Patient - Social History Smoking Status: Never Smoker Chew tobacco use (# tins/day): No Frequency of alcohol use: None Drug Abuse: None Family History: Arthritis, CAD, CVA, DM, Hyperlipidemia, Hypertension, Malignancy, Thyroid Disfunction Patient has suicidal ideation: No Patient has homicidal ideation: No - Past Medical History Cardiac Medical History: Reports: Hx Coronary Artery Disease, Hx Heart Attack - 2010, Hx Hypercholesterolemia, Hx Hypertension Renal/ Medical History: Denies: Hx Peritoneal Dialysis Malignancy Medical History: Reports Hx Prostate Cancer Musculoskeletal Medical History: Reports Hx Arthritis, Reports Hx Musculoskeletal Deformity, Reports Hx Musculoskeletal Trauma Traumatic Medical History: Reports: Hx Fractures - Wrist Past Surgical History: Reports: Hx Cardiac Catheterization, Hx Orthopedic Surgery - RIGHT WRIST, Other - Robotic laparoscopic prostatectomy, 02/13/[address] Zaragoza - Immunizations Immunizations up to date: Yes Hx Diphtheria, Pertussis, Tetanus Vaccination: Yes Review of Systems - Review of Systems Constitutional: No symptoms reported EENT: No symptoms reported Cardiovascular: No symptoms reported Respiratory: No symptoms reported Gastrointestinal: No symptoms reported Genitourinary: No symptoms reported Musculoskeletal: See HPI Skin: No symptoms reported Neurological/Psychological: No symptoms reported Physical Exam - Vital signs Vitals: Temp Pulse Resp BP Pulse Ox 98.4 F 67 16 139/81 H 98 03/25/19 10:35 03/25/19 10:35 03/25/19 10:35 03/25/19 10:35 03/25/19 10:35 - Notes Notes: Vital signs reviewed, please refer to chart. Head is normocephalic, atraumatic. Pupils equal round, reactive to light. Neck is supple without meningismus. Heart is regular rate and rhythm. Lungs are clear to auscultation bilaterally. Abdomen is soft, nontender, normoactive bowel sounds throughout. Examination of the spine yields no midline tenderness or step-off. He has paraspinal musculature tenderness noted from approximately T11 down to L3 with associated spasm bilaterally. Strength is plus 5 out of 5 bilateral lower extremities. Se nsation is intact. Reflexes are symmetrical. Extremities without cyanosis, clubbing. Posterior calves are nontender. Peripheral pulses are equal. Skin is warm and dry. Patient is awake, alert, neurological exam is nonfocal. Course - Re-evaluation Re-evalutation: 03/25/19 12:50 Patient presents to the emergency department for evaluation of back pain. He was initially seen through triage. He had laboratory investigations and imaging as ordered by the nurse practitioner. The patient refused ultrasound. I did review his last ultrasound which was found to be unremarkable. I do believe is reasonable to hold off on this at this time. His urinalysis was unremarkable. His renal function is better than it has been in some time. I do strongly suspect this is musculoskeletal back pain. Offered the patient muscle relaxers. He refuses, states he would rather not take any medications for it. He is told to use moist heat, seek out possible physical therapy referral. He is to return to the ED with worsening and concerning symptoms of any sort. - Vital Signs Vital signs: Temp Pulse Resp BP Pulse Ox 98.2 F 73 16 132/75 H 98 03/25/19 12:48 03/25/19 12:48 03/25/19 12:48 03/25/19 12:48 03/25/19 12:48 - Laboratory Result Diagrams: 03/25/19 11:15 03/25/19 11:15 Laboratory results interpreted by me: 03/25/19 03/25/19 11:15 11:15 RBC 3.94 L Hgb 11.6 L Hct 34.2 L Potassium 3.5 L Discharge - Discharge Clinical Impression: Low back pain Qualifiers: Chronicity: acute Condition: Stable Disposition: HOME, SELF-CARE Instructions: Low Back Pain ([facility]) Additional Instructions: Moist heat to the lower back. Follow-up with your primary care provider this week. You should discuss possible physical therapy referral. Return to the emergency department with worsening or new concerning symptoms of any sort. Referrals: SEBLE LEMOS MD [Primary Care Provider] - Follow up as needed
[2019-03-25 12:54] VITALS: BP 132/75
== END 2019-03-25 12:53 | disposition home or self-care (01) ==
LOC: ER 10:28
DX: M54.5 Low back pain (principal); M62.830 Muscle spasm of back; I25.10 Atherosclerotic heart disease of native coronary artery without angina pectoris; I10 Essential (primary) hypertension; Z85.46 Personal history of malignant neoplasm of prostate; Z88.8 Allergy status to other drugs, medicaments and biological substances
CPT/HCPCS: 36415; 80053; 81001; 83690; 85025; 87086; 99283

== ENCOUNTER → 2019-04-12 | Outpatient (CLI) | payer BC ==
[2019-04-12 17:52] LABS: ANION GAP 9 (5-19); BLOOD UREA NITROGEN 13 mg/dL (7-20); CARBON DIOXIDE 26 mmol/L (22-30); CHLORIDE 104 mmol/L (98-107); GLUCOSE 97 mg/dL (75-110); POTASSIUM 4.1 mmol/L (3.6-5.0); SODIUM 138.5 mmol/L (137-145)
== END ==
LOC: OD 16:41
PROVIDERS: ATTEND Internal Medicine Nephrology
DX: N17.9 Acute kidney failure, unspecified (principal)
CPT/HCPCS: 36415; 80048

== ENCOUNTER 2019-04-13 12:38 | Emergency (ER) | payer BC ==
--- NOTE | 2019-04-13 14:35 | ER Document Report ---
Addendum entered and electronically signed by DELTA ELIZONDO PA-C 04/13/19 14:58: Course - Re-evaluation Re-evalutation: 04/13/19 14:57 Pt was able to voluntarily void 45ml. Pt felt as though this was a complete void for him. Bladder scan revealed 218cc remaining in bladder on scan. - Vital Signs Vital signs: Temp Pulse Resp BP Pulse Ox 98.4 F 81 18 131/80 H 96 04/13/19 12:43 04/13/19 12:43 04/13/19 12:43 04/13/19 12:43 04/13/19 12:43 Original Note: ED Medical Screen (RME) - General Chief Complaint: Urinary Problem Stated Complaint: BACK PAIN Time Seen by Provider: 04/13/19 14:24 Primary Care Provider: SEBLE LEMOS MD [Primary Care Provider] - Follow up as needed TRAVEL OUTSIDE OF THE [place] IN LAST 30 DAYS: No - HPI Notes: 04/13/19 14:32 Patient is a 43-year-old male with a history of hypertension, coronary artery disease, CKD, previous prostate cancer with prostatectomy presents complaining of noticing an elevation in his creatinine to 1.78 with labs done by his winding operator yesterday. Patient states he spoke with his winding operator and she told him that if he is concerned to come to the emergency department. Patient states that he has not been urinating as much today. He is able to eat and drink without difficulty. He is having normal bowel movements. Patient states that he does continue to have low back pain that does not radiate and is unchanged from previous. It is worsened by bending and twisting. He has been seen for this back pain in the past. No history of IV drug abuse or spinal abscess. Denies any headache, fever, neck pain, URI, sore throat, chest pain, p alpitations, syncope, cough, shortness of breath, wheeze, dyspnea, abdominal pain, nausea/vomiting/diarrhea, hematuria, loss of control of bowel or bladder, numbness/tingling, saddle anesthesia, muscle paralysis/weakness, or rash. I have treated and performed a rapid initial assessment of this patient. A comprehensive ED assessment and evaluation of the patient, analysis of test results and completion of medical decision making process will be conducted by additional ED providers. PHYSICAL EXAMINATION: GENERAL: Well-appearing, well-nourished and in no acute distress. A&Ox4. Answers questions appropriately. LUNGS: Breath sounds clear to auscultation bilaterally and equal. No wheezes rales or rhonchi. HEART: Regular rate and rhythm without murmurs, rubs, gallops. ABDOMEN: Soft, nondistended abdomen. No guarding, no rebound. Normal bowel sounds present. No CVA tenderness bilaterally. grossly nontender (cannot elicit thorough abd exam w/o bed, however). Back: FROM. + mild tenderness L-paraspinal mm. No vertebral tenderness. SLR neg. No foot drop. Extremities: No cyanosis, clubbing, or edema b/l. NEUROLOGICAL: Normal speech, normal gait. PSYCH: Normal mood, normal affect. - Related Data Allergies/Adverse Reactions: hydralazine Allergy (Intermediate, Verified 04/13/19 12:41) Edema Past Medical History - Social History Frequency of alcohol use: None Drug Abuse: None - Past Medical History Cardiac Medical History: Reports: Hx Coronary Artery Disease, Hx Heart Attack - 2010, Hx Hypercholesterolemia, Hx Hypertension Renal/ Medical History: Denies: Hx Peritoneal Dialysis Malignancy Medical History: Reports Hx Prostate Cancer Musculoskeltal Medical History: Reports Hx Arthritis, Reports Hx Musculoskeletal Deformity, Reports Hx Musculoskeletal Trauma Traumatic Medical History: Reports: Hx Fractures - Wrist Past Surgical History: Reports: Hx Cardiac Catheterization, Hx Orthopedic Surgery - RIGHT WRIST, Other - Robotic laparoscopic prostatectomy, 02/13/[address] Zaragoza - Immunizations Immunizations up to date: Yes Hx Diphtheria, Pertussis, Tetanus Vaccination: Yes Physical Exam - Vital signs Vitals: Temp Pulse Resp BP Pulse Ox 98.4 F 81 18 131/80 H 96 04/13/19 12:43 04/13/19 12:43 04/13/19 12:43 04/13/19 12:43 04/13/19 12:43 Course - Vital Signs Vital signs: Temp Pulse Resp BP Pulse Ox 98.4 F 81 18 131/80 H 96 04/13/19 12:43 04/13/19 12:43 04/13/19 12:43 04/13/19 12:43 04/13/19 12:43 Doctor's Discharge - Discharge Referrals: SEBLE LEMOS MD [Primary Care Provider] - Follow up as needed
[2019-04-13 15:15] LABS: ABSOLUTE EOSINOPHILS # (AUTO) 0.3 10^3/uL (0.0-0.6); ABSOLUTE LYMPHOCYTES (AUTO) 2.2 10^3/uL (0.5-4.7); ABSOLUTE MONOCYTES (AUTO) 0.8 10^3/uL (0.1-1.4); ABSOLUTE NEUT (AUTO) 4.5 10^3/uL (1.7-8.2); APPEARANCE,URINE CLEAR; BASOPHILS % (AUTO) 0.5 % (0-2); BILIRUBIN,URINE NEGATIVE (NEGATIVE); COLOR,URINE YELLOW; EOSINOPHILS % (AUTO) 3.6 % (0-6); GLUCOSE, URINE NEGATIVE (NEGATIVE); HEMATOCRIT 39.4 % (37.9-51.0); HEMOGLOBIN 13.2 g/dL (13.5-17.0); KETONES,URINE NEGATIVE (NEGATIVE); LEUKOCYTE ESTERASE,URINE NEGATIVE (NEGATIVE); LYMPHOCYTES % (AUTO) 28.6 % (13-45); MEAN CORPUSCULAR HEMOGLOBIN 29.4 pg (27.0-33.4); MEAN CORPUSCULAR HGB CONC 33.4 g/dL (32.0-36.0); MEAN CORPUSCULAR VOLUME 88 fl (80-97); MONOCYTES % (AUTO) 9.9 % (3-13); NITRITE,URINE NEGATIVE (NEGATIVE); PLATELET COUNT 310 10^3/uL (150-450); PROTEIN,URINE NEGATIVE (NEGATIVE); RED BLOOD COUNT 4.48 10^6/uL (4.35-5.55); RED CELL DISTRIBUTION WIDTH 13.8 % (11.5-14.0); SEGMENTED NEUTROPHILS % (AUTO) 57.4 % (42-78); TOTAL CELLS COUNTED % (AUTO) 100 %; URINE SPECIFIC GRAVITY 1.013; UROBILINOGEN,URINE NEGATIVE mg/dL (<2.0); WHITE BLOOD COUNT 7.8 10^3/uL (4.0-10.5)
[2019-04-13 15:30] LABS: ALANINE AMINOTRANSFERASE 25 U/L (21-72); ALBUMIN 4.9 g/dL (3.5-5.0); ALKALINE PHOSPHATASE 73 U/L (38-126); ANION GAP 11 (5-19); ASPARTATE AMINO TRANSFERASE 29 U/L (17-59); BILIRUBIN,DIRECT 0.2 mg/dL (0.0-0.4); BILIRUBIN,TOTAL 0.5 mg/dL (0.2-1.3); BLOOD UREA NITROGEN 13 mg/dL (7-20); CALCIUM 10.4 mg/dL (8.4-10.2); CARBON DIOXIDE 26 mmol/L (22-30); CHLORIDE 105 mmol/L (98-107); GLUCOSE 78 mg/dL (75-110); POTASSIUM 4.4 mmol/L (3.6-5.0); SODIUM 141.8 mmol/L (137-145); TOTAL PROTEIN 7.9 g/dL (6.3-8.2)
--- NOTE | 2019-04-13 16:18 | ER Document Report ---
HPI - HPI Patient complains to provider of: Elevated renal function test Time Seen by Provider: 04/13/19 14:24 Onset: Yesterday Pain Level: 2 Context: Patient states yesterday he was not voiding as much as he normally does. Patient did have outpatient lab work performed by his doctor. Patient was advised that his creatinine was 1.78 and that he should come to the emergency department for further evaluation. Patient does have a history of radical prostatectomy and states that he has been voiding and will occasionally have stress incontinence. Patient states that just the volume of what he has been voiding has been less recently. 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 Associated Symptoms: denies: Chest pain, Nonproductive cough, Productive cough, Fever, Headache, Vomiting Exacerbated by: Denies Relieved by: Denies Similar symptoms previously: No Recently seen / treated by doctor: Yes - ROS ROS below otherwise negative: Yes Systems Reviewed and Negative: Yes All other systems reviewed and negative - CONSTITUTIONAL Constitutional: DENIES: Fever, Chills - NEURO Neurology: DENIES: Headache, Weakness - CARDIOVASCULAR Cardiovascular: DENIES: Chest pain - RESPIRATORY Respiratory: DENIES: Trouble Breathing, Coughing - GASTROINTESTINAL Gastrointestinal: DENIES: Abdominal Pain, Nausea, Patient vomiting - URINARY Urinary: DENIES: Dysuria, Urgency, Frequency Notes: Decreased volume of urine - MUSCULOSKELETAL Musculoskeletal: DENIES: Extremity pain, Back Pain - DERM Skin Color: Normal Skin Problems: None Past Medical History - General Information source: Patient - Social History Smoking Status: Never Smoker Frequency of alcohol use: None Drug Abuse: None Occupation: [employer] Lives with: Family Family History: Arthritis, CAD, CVA, DM, Hyperlipidemia, Hypertension, Malignancy, Thyroid Disfunction Patient has suicidal ideation: No Patient has homicidal ideation: No - Past Medical History Cardiac Medical History: Reports: Hx Coronary Artery Disease, Hx Heart Attack - 2010, Hx Hypercholesterolemia, Hx Hypertension Renal/ Medical History: Denies: Hx Peritoneal Dialysis Malignancy Medical History: Reports Hx Prostate Cancer Musculoskeletal Medical History: Reports Hx Arthritis, Reports Hx Musculoskeletal Deformity, Reports Hx Musculoskeletal Trauma Traumatic Medical History: Reports: Hx Fractures - Wrist Past Surgical History: Reports: Hx Cardiac Catheterization, Hx Orthopedic Lerma rgery - RIGHT WRIST, Other - Robotic laparoscopic prostatectomy, 02/13/[address] Zaragoza - Immunizations Immunizations up to date: Yes Hx Diphtheria, Pertussis, Tetanus Vaccination: Yes Vertical Provider Document - CONSTITUTIONAL Agree With Documented VS: Yes Exam Limitations: No Limitations General Appearance: WD/WN, No Apparent Distress - INFECTION CONTROL TRAVEL OUTSIDE OF THE [place] IN LAST 30 DAYS: No - HEENT HEENT: Atraumatic, Normocephalic - NECK Neck: Normal Inspection, Supple - RESPIRATORY Respiratory: Breath Sounds Normal, No Respiratory Distress - CARDIOVASCULAR Cardiovascular: Regular Rate, Regular Rhythm, No Murmur - GI/ABDOMEN Gastrointestinal: Abdomen Soft, Abdomen Non-Tender, No Organomegaly, Normal Bowel Sounds Notes: No bladder distention - BACK Back: Normal Inspection. negative: CVA Tenderness-Right, CVA Tenderness-Left - MUSCULOSKELETAL/EXTREMETIES Musculoskeletal/Extremeties: IDALIA PACE - NEURO Level of Consciousness: Awake, Alert, Appropriate Motor/Sensory: No Motor Deficit - DERM Integumentary: Warm, Dry, No Rash Course - Re-evaluation Re-evalutation: 04/13/19 16:15 Reviewed patient's labs from yesterday as compared to today. Patient with normal renal function tests and normal urinalysis today. Patient did have a bladder scan performed with a postvoid residual of 218 mL's. Patient states that he was able to go to the bathroom again after the bladder scan was perfor med. Patient states that he has been doing bladder training exercises after having a radical prostatectomy in January of this year. Patient states that he will have stress incontinence daily. Patient does have an appointment with his urologist in 5 days. Discussed with patient lab results. Patient was concerned because he felt like he was not voiding enough. 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 Patient advised that he may have not been voiding as much yesterday because he may have been dehydrated given the fact that he was working outside in the heat. Gave patient the option of going home with a Escalera catheter if he was concerned that he was not able to empty his bladder. Patient declined needing a Escalera and plans to follow-up with his urologist on Tuesday as planned. Patient states he came here today because of his concern that he was not voiding as much and the fact that his renal function test had increased. Patient reassured that his renal function had returned back to normal today. Discussed importance of hydration with patient when working outside. Patient was given a copy of his labs to take to his urologist and account support analyst for further evaluation. - Vital Signs Vital signs: Temp Pulse Resp BP Pulse Ox 98.4 F 81 18 131/80 H 96 04/13/19 12:43 04/13/19 12:43 04/13/19 12:43 04/13/19 12:43 04/13/19 12:43 - Laboratory Result Diagrams: 04/13/19 15:00 04/13/19 15:00 Laboratory results interpreted by me: 04/13/19 04/13/19 15:00 15:00 Hgb 13.2 L Calcium 10.4 H 04/13/19 16:17 Labs- Entire Visit 04/13/19 04/13/19 04/13/19 15:00 15:00 15:00 WBC 7.8 RBC 4.48 Hgb 13.2 L Hct 39.4 MCV 88 MCH 29.4 MCHC 33.4 RDW 13.8 Plt Count 310 Seg Neutrophils % 57.4 Lymphocytes % 28.6 Monocytes % 9.9 Eosinophils % 3.6 Basophils % 0.5 Absolute Neutrophils 4.5 Absolute Lymphocytes 2.2 Absolute Monocytes 0.8 Absolute Eosinophils 0.3 Absolute Basophils 0.0 Sodium 141.8 Potassium 4.4 Chloride 105 Carbon Dioxide 26 Anion Gap 11 BUN 13 Creatinine 1.24 Est GFR ( Amer) > 60 Est GFR (Non-Af Amer) > 60 Glucose 78 Calcium 10.4 H Total Bilirubin 0.5 Direct Bilirubin 0.2 Neonat Total Bilirubin Not Reportable Neonat Direct Bilirubin Not Reportable Neonat Indirect Bili Not Reportable AST 29 ALT 25 Alkaline Phosphatase 73 Total Protein 7.9 Albumin 4.9 Urine Color YELLOW Urine Appearance CLEAR Urine pH 5.0 Ur Specific Rocky 1.013 Urine Protein NEGATIVE Urine Glucose (UA) NEGATIVE Urine Ketones NEGATIVE Urine Blood NEGATIVE Urine Nitrite NEGATIVE Urine Bilirubin NEGATIVE Urine Urobilinogen NEGATIVE Ur Leukocyte Esterase NEGATIVE Urine WBC (Auto) 1 Urine RBC (Auto) 0 Urine Mucus (Auto) RARE Urine Ascorbic Acid NEGATIVE Discharge - Discharge Clinical Impression: Decreased urine output Condition: Stable Disposition: HOME, SELF-CARE Additional Instructions: Return immediately for any new or worsening symptoms Followup with your account support analyst as well as urologist for recheck. Call Tuesday for an appointment. Return immediately if you are unable to void for greater than 6 hours. Stay well-hydrated when working outside in the heat. Referrals: SEBLE LEMOS MD [Primary Care Provider] - Follow up as needed
[2019-04-13 16:26] VITALS: BP 129/87
== END 2019-04-13 16:26 | disposition home or self-care (01) ==
LOC: ER 12:38
DX: R39.89 Other symptoms and signs involving the genitourinary system (principal); N39.3 Stress incontinence (female) (male); Z90.79 Acquired absence of other genital organ(s); Z85.46 Personal history of malignant neoplasm of prostate; I10 Essential (primary) hypertension; I25.10 Atherosclerotic heart disease of native coronary artery without angina pectoris
CPT/HCPCS: 36415; 80053; 81001; 85025; 99283

== ENCOUNTER → 2019-10-24 | Outpatient (CLI) | payer BC ==
--- NOTE | 2019-10-24 12:08 | RADIOLOGY REPORT (SQ) ---
EXAM DESCRIPTION: U/S ABDOMEN COMPLETE W/O DOP COMPLETED DATE/TIME: 10/24/2019 10:42 am REASON FOR STUDY: ABDOMINAL PAIN R10.13 EPIGASTRIC PAIN COMPARISON: None. TECHNIQUE: Dynamic and static grayscale images acquired of the abdomen and recorded on PACS. Additio nal selected color Doppler and spectral images recorded. Note: Study does not meet criteria for complete doppler/duplex scan LIMITATIONS: None. FINDINGS: PANCREAS: Partially visualized, unremarkable. LIVER: No focal lesions. No ductal dilation. Increased echogenicity. LIVER VASCULATURE: Normal directional flow of the main portal vein and hepatic veins. GALLBLADDER: Contracted gallbladder. Patient reportedly ate prior to the exam. ULTRASOUND-DETECTED IGNACIO'S SIGN: Negative. INTRAHEPATIC DUCTS AND COMMON DUCT: CBD and intrahepatic ducts normal caliber. No filling defects. INFERIOR VENA CAVA: Normal flow. AORTA: Distal aorta measures up to 2.5 cm. RIGHT KIDNEY: Normal in size measuring 10.0 cm Normal echogenicity. No solid or suspicious ascencion s. No hydronephrosis. No calcifications. LEFT KIDNEY: Normal in size measuring 10.8 cm. Normal echogenicity. There is an indeterminate hy poechoic lesion along the lower pole measuring 2.4 cm. No increased vascularity noted. No hydronep hrosis. No calcifications. SPLEEN: Normal in size measuring 9 cm. No focal lesions. PERITONEAL AND PLEURAL SPACES: No ascites or effusions. OTHER: No other significant finding. IMPRESSION: 1. Hepatic steatosis. 2. No other evidence of acute intra-abdominal process. 3. Indeterminate 2.4 cm lesion along the left lower pole. Findings may represent hemorrhage/protein aceous cyst, solid lesion or cortical lobulation. Follow-up ultrasound or multiphase contrast-enhanc ed CT/MRI should be considered for further evaluation. TECHNICAL DOCUMENTATION: JOB ID: [id number] [employer]- All Rights Reserved Reading location - IP/workstation name: [email or web address]
== END ==
LOC: RAD 09:40
PROVIDERS: ATTEND Internal Medicine Gastroenterology
DX: R10.13 Epigastric pain (principal); K76.0 Fatty (change of) liver, not elsewhere classified; N28.9 Disorder of kidney and ureter, unspecified
CPT/HCPCS: 76700

== ENCOUNTER 2020-03-03 02:26 | Emergency (ER) | payer BC ==
--- NOTE | 2020-03-03 03:46 | RADIOLOGY REPORT (SQ) ---
Right shoulder three view on 03/03/2020 at 2:52 AM CLINICAL INDICATION: Right shoulder pain COMPARISON: None FINDINGS: The AC joint is well aligned. The glenohumeral joint is well located. There are no fractures. No bony abnormality is noted. IMPRESSION: No acute abnormality.
--- NOTE | 2020-03-03 03:46 | RADIOLOGY REPORT (SQ) ---
Right humerus two view on 03/03/2020 at 2:54 AM CLINICAL INDICATION: Pain COMPARISON: None FINDINGS: There are no fractures. Visualized joints are well aligned. No bony abnormality is noted. IMPRESSION: No acute abnormality.
[2020-03-03] MEDS ORDERED: PROMETHAZINE HCL 25 MG TABLET PO ONE (03:47)
[2020-03-03] MEDS ORDERED: OXYCODONE-ACETAMINOPHEN 5-325 MG TABLET PO ONE (03:47)
--- NOTE | 2020-03-03 03:48 | ER Document Report ---
HPI - HPI Time Seen by Provider: 03/03/20 03:41 Pain Level: 4 Context: Patient is a 44-year-old male that comes emergency department for chief complaint of pain to his right shoulder and right arm. He states 2 days ago he was doing push-ups and he felt a pulling and pain, he states since that time he has had increasing soreness, tightness, and pain to the area. He reports pain with any range of motion, he states he could not get comfortable tonight and could not sleep. He denies numbness. He states he has a history of herniated disks in his neck but he denies injury, neck pain, headache, focal numbness or weakness, incontinence, fever. He denies history of IV drug abuse. He states he took ibuprofen without any significant results and he is scared to take more because he has a history of kidney failure in the past. He is urinating without difficulty. He denies any other complaints. Past medical history includes CAD and prostatectomy. - REPRODUCTIVE Reproductive: DENIES: : Past Medical History - General Information source: Patient - Social History Smoking Status: Never Smoker Frequency of alcohol use: None Drug Abuse: None Lives with: Family Family History: Arthritis, CAD, CVA, DM, Hyperlipidemia, Hypertension, Malignancy, Thyroid Disfunction Patient has homicidal ideation: No - Past Medical History Cardiac Medical History: Reports: Hx Coronary Artery Disease, Hx Heart Attack - 2010, Hx Hypercholesterolemia, Hx Hypertension Renal/ Medical History: Denies: Hx Peritoneal Dialysis Malignancy Medical History: Reports Hx Prostate Cancer Musculoskeletal Medical History: Reports Hx Arthritis, Reports Hx Musculoskeletal Deformity, Reports Hx Musculoskeletal Trauma Traumatic Medical History: Reports: Hx Fractures - Wrist Past Surgical History: Reports: Hx Cardiac Catheterization, Hx Orthopedic Surg vinny - RIGHT WRIST, Other - Robotic laparoscopic prostatectomy, 02/13/[address] Zaragoza - Immunizations Immunizations up to date: Yes Hx Diphtheria, Pertussis, Tetanus Vaccination: Yes Vertical Provider Document - CONSTITUTIONAL General Appearance: WD/WN, No Apparent Distress - Patient has difficulty getting comfortable and has difficulty finding a comfortable position but he does not appear to be in severe distress - INFECTION CONTROL TRAVEL OUTSIDE OF THE [place] IN LAST 30 DAYS: No - HEENT HEENT: Atraumatic, Normal ENT Exam, Normocephalic - NECK Neck: Normal Inspection - RESPIRATORY Respiratory: Breath Sounds Normal - CARDIOVASCULAR Cardiovascular: Regular Rate, Regular Rhythm - GI/ABDOMEN Gastrointestinal: Abdomen Soft, Abdomen Non-Tender. negative: Abdomen Tender - BACK Back: Normal Inspection - MUSCULOSKELETAL/EXTREMETIES Musculoskeletal/Extremeties: KATELYNN, FROM, Tender - Patient has tenderness along the right supraspinatus, right upper shoulder, and the most lateral aspect of the right pectoral muscle. He has pain with range of motion of the right arm although range of motion is intact. Patient has palpable muscle spasms in his shoulder as well. 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 No signs of trauma. Unremarkable otherwise. - NEURO Level of Consciousness: Awake, Alert, Appropriate Motor/Sensory: No Motor Deficit, No Sensory Deficit - DERM Integumentary: Warm, Dry, No Rash Course - Re-evaluation Re-evalutation: Patient is evaluation is most consistent with a rotator cuff injury after the push-ups. He does have range of motion but this is painful, he has palpable muscle spasms on exam. He has no cardiovascular symptoms or neurovascular deficits. Patient is requesting an as needed sling. X-rays are negative. Discussed care, orthopedic follow-up, and return cautions. Patient states understanding and agreement. Stable and well-appearing at time of discharge. - Vital Signs Vital signs: Temp Pulse Resp BP Pulse Ox 98 F 64 18 132/84 H 98 03/03/20 02:34 03/03/20 02:31 03/03/20 02:31 03/03/20 02:31 03/03/20 02:31 Discharge - Discharge Clinical Impression: Right shoulder pain Qualifiers: Chronicity: acute Qualified Code(s): M25.511 - Pain in right shoulder Right shoulder injury Qualifiers: Encounter type: initial encounter Qualified Code(s): S49.91XA - Unspecified injury of right shoulder and upper arm, initial encounter Condition: Stable Disposition: HOME, SELF-CARE Additional Instructions: Based on your evaluation of the upper back pain, right shoulder pain, right side of the pectoral muscle pain, and right arm pain along with your injury I believe that you have a rotator cuff injury. The x-rays are normal. This may resolve with time and care. I recommend that you apply heat to the area, perform gentle stretches, wear the sling for comfort, and take the provided muscle relaxer at night. You can take Tylenol and ibuprofen during the day. Remember to continue to carefully perform range of motion. Follow-up with orthopedics referral if symptoms continue. Return for any concerning symptoms including severe worsening swelling or pain. Prescriptions: Diazepam [Valium 5 mg Tablet] 1 - 2 tab PO TID PRN #12 tablet PRN Reason: Forms: Return to Work Referrals: JENNIFER CANALES JR, DO [ACTIVE PROVISIONAL STAFF] - Follow up in 1 week
[2020-03-03 04:42] VITALS: BP 126/80
== END 2020-03-03 04:42 | disposition home or self-care (01) ==
LOC: ER 02:26
DX: S49.91XA Unspecified injury of right shoulder and upper arm, initial encounter (principal); M25.511 Pain in right shoulder; M79.601 Pain in right arm; X50.0XXA Overexertion from strenuous movement or load, initial encounter; I25.10 Atherosclerotic heart disease of native coronary artery without angina pectoris; I25.2 Old myocardial infarction; I10 Essential (primary) hypertension
CPT/HCPCS: 99283

== ENCOUNTER 2020-03-04 10:22 | Emergency (ER) | payer BC ==
--- NOTE | 2020-03-04 10:40 | ER Document Report ---
ED Extremity Problem, Upper - General Chief Complaint: Shoulder Pain Stated Complaint: RIGHT SHOULDER/ARM PAIN Time Seen by Provider: 03/04/20 10:35 Primary Care Provider: [facility] [Provider Group] - Follow up as needed DAVE CATHERINE MD [Primary Care Provider] - Follow up as needed Mode of Arrival: Ambulatory Information source: Patient Notes: 44-year-old male presented to ED for right shoulder girdle pain. He states it hurts in the back of his shoulder front of her shoulder and down his arm. He states it started hurting when he was doing push-ups and the pain became severe. 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 Does have an acute kidney disease acute failure high blood pressure. Patient states he went to his primary care doctor and was sent to the emergency room for a MRI. I have told him that we will send him to outpatient orthopedics to get his MRI to find out the true extent of his injury. He stated he had pain medicines and muscle relaxers and did not need these he needed an MRI of his shoulder. TRAVEL OUTSIDE OF THE [place] IN LAST 30 DAYS: No - HPI Patient complains to provider of: Right, Shoulder Onset: Last week Recent injury: Possibly Quality of pain: Sharp, Stabbing Severity of pain: Moderate Pain Level: 4 Context: Other - Sitting Associated symptoms: None Exacerbated by: Movement Relieved by: Rest, Positioning Similar symptoms previously: Yes Recently seen / treated by doctor: No - Related Data Allergies/Adverse Reactions: hydralazine Allergy (Intermediate, Verified 04/13/19 12:41) Edema Past Medical History - General Information source: Patient - Social History Smoking Status: Never Smoker Chew tobacco use (# tins/day): No Frequency of alcohol use: None Drug Abuse: None Lives with: Family Family History: Arthritis, CAD, CVA, DM, Hyperlipidemia, Hypertension, Malignancy, Thyroid Disfunction Patient has homicidal ideation: No - Past Medical History Cardiac Medical History: Reports: Hx Coronary Artery Disease, Hx Heart Attack - 2010, Hx Hypercholesterolemia, Hx Hypertension Pulmonary Medical History: Reports: Hx Asthma EENT Medical History: Reports: None Neurological Medical History: Reports: None Endocrine Medical History: Reports: None Renal/ Medical History: Reports: None. Denies: Hx Peritoneal Dialysis Malignancy Medical History: Reports Hx Prostate Cancer Musculoskeletal Medical History: Reports Hx Arthritis, Reports Hx Musculoskeletal Deformity, Reports Hx Musculoskeletal Trauma Skin Medical History: Reports None Psychiatric Medical History: Reports: None Traumatic Medical History: Reports: Hx Fractures - Wrist Infectious Medical History: Reports: None Past Surgical History: Reports: Hx Cardiac Catheterization, Hx Orthopedic Surgery - RIGHT WRIST, Other - Robotic laparoscopic prostatectomy, 02/13/[address] Zaragoza - Immunizations Immunizations up to date: Yes Hx Diphtheria, Pertussis, Tetanus Vaccination: Yes Review of Systems - Review of Systems Constitutional: No symptoms reported EENT: No symptoms reported Cardiovascular: No symptoms reported Respiratory: No symptoms reported Gastrointestinal: No symptoms reported Genitourinary: No symptoms reported Musculoskeletal: Back pain, Muscle pain, Muscle stiffness Skin: No symptoms reported Hematologic/Lymphatic: No symptoms reported Neurological/Psychological: No symptoms reported -: Yes All other systems reviewed and negative Physical Exam - Vital signs Vitals: Temp 98.5 F 03/04/20 10:30 Interpretation: Normal - General General appearance: Appears well, Alert - HEENT Head: Normocephalic, Atraumatic Eyes: Normal Pupils: PERRL - Respiratory Respiratory status: No respiratory distress Chest status: Nontender Breath sounds: Normal Chest palpation: Normal - Cardiovascular Rhythm: Regular Heart sounds: Normal auscultation Murmur: No - Abdominal Inspection: Normal Distension: No distension Bowel sounds: Normal Tenderness: Nontender Organomegaly: No organomegaly - Back Back: Normal, Nontender - Extremities General upper extremity: Tender, Normal color, Normal temperature. No: Normal strength General lower extremity: Normal inspection, Nontender, Normal color, Normal ROM, Normal temperature, Normal weight bearing. 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 He states he did not fall. He states he cannot sleep due to the pain. Has no strength in the muscle. - Vital Signs Vital signs: Temp Pulse Resp BP Pulse Ox 98.5 F 03/04/20 10:30 Discharge - Discharge Clinical Impression: Muscle strain of right scapular region Qualifiers: Encounter type: initial encounter Qualified Code(s): S46.911A - Strain of unspecified muscle, fascia and tendon at shoulder and upper arm level, right arm, initial encounter Muscle strain, shoulder region Qualifiers: Encounter type: initial encounter Laterality: right Qualified Code(s): S46.911A - Strain of unspecified muscle, fascia and tendon at shoulder and upper arm level, right arm, initial encounter Condition: Stable Disposition: HOME, SELF-CARE Additional Instructions: NECK INJURY (CERVICAL STRAIN): You have a neck strain. This is an injury to the muscles and ligaments in the neck. There is no evidence of a fracture of the neck bones. Also, no injury to the spinal cord or nerve roots was detected. Usually, stiffness and pain INCREASE for the first 24-48 hours after the injury. The pain will gradually resolve and the neck will become more mobile. Most patients are back at work or school within a few days. Typically, complete healing takes about two or three weeks. The usual initial treatment is rest and cold packs. A neck collar may be placed to keep the muscles of the neck at rest. Antiinflammatory and muscle relaxing medication are often used to reduce the spasm and irritation. You should call the doctor, or go to the hospital, if you develop numbness or weakness in any extremity, problems with your bladder or bowel, or pain radiating down the arms. Ibuprofen Ibuprofen is an excellent, safe drug for pain control. In addition, it has potent antiinflammatory effects which are beneficial, especially in the treatment of injuries, arthritis, or tendonitis. It's best to take ibuprofen with food. Persons with ulcer disease or allergy to aspirin should notify their physician of this before taking ibuprofen. Take the medication exactly as prescribed. Don't take additional doses unless instructed to do so by your doctor. If you develop wheezing, shortness of breath, hives, faintness, stomach pain, vomiting, or dark black stools, return for re-evaluation at once. MUSCLE STRAIN: You have strained a muscle -- torn the fibers within the muscle. This often occurs with strenuous exertion, or during an injury that suddenly stretches the muscle. The seriousness of a strain varies. Some strains heal within days, others cause problems for months. X-rays cannot show a muscle strain. X-rays are taken only if symptoms suggest that a fracture could be present. The usual treatment of a muscle strain is rest and ice packs. Sometimes, a sling, splint, or crutches may be necessary to rest the muscle. The muscle can be used again once pain subsides. Severe strains require a special exercise and stretching program to prevent permanent stiffness and disability. Your doctor will advise you if this will be necessary. USE OF TYLENOL (ACETAMINOPHEN): Acetaminophen may be taken for pain relief or fever control. It's much safer than aspirin, offering a wider range of "safe" dosages. It is safe during . Some brand names are Tylenol, Panadol, Datril, Anacin 3, Tempra, and Liquiprin. Acetaminophen can be repeated every four hours. The following are maximum recommended dosages: WEIGHT Dose Drops Elixir Chewable(80mg) (LBS.) drprs=droppers tsp=teaspoon 6 40 mg 0.4 ml (1/2) 6-11 80 mg 0.8 ml (full) tsp 1 tab 12-16 120 mg 1 1/2 drprs 3/4 tsp 1 1/2 tabs 17-23 160 mg 2 drprs 1 tsp 2 tabs 24-30 240 mg 3 drprs 1 1/2 tsp 3 tabs 30-35 320 mg 2 tsp 4 tabs 36-41 360 mg 2 1/4 tsp 4 1/2 tabs 42-47 400 mg 2 1/2 tsp 5 tabs 48-53 480 mg 3 tsp 6 tabs 54-59 520 mg 3 1/4 tsp 6 1/2 tabs 60-64 560 mg 3 1/2 tsp 7 tabs 65-70 600 mg 3 3/4 tsp 7 1/2 tabs 71-76 640 mg 4 tsp 8 tabs 77-82 720 mg 4 1/2 tsp 9 tabs 83-88 800 mg 5 tsp 10 tabs >89 pounds or adults 650 mg to 900 mg Acetaminophen can be repeated every four hours. Maximum dose not to exceed 4000 mg a day. These maximum recommended dosages are slightly higher than the dosages written on the product container, but these dosages are very safe and below the toxic dosage for acetaminophen. ICE PACKS: Apply ice packs frequently against the painful area. Many different schedules are recommended, such as "20 minutes on, 20 minutes off" or "one hour ice, two hours rest." If you need to work, you may need to go longer between ice treatments. You should plan to have the area ice packed AT LEAST one fourth of the time. The ice should be applied over the wrap, tape, or splint, or over a layer of cloth -- not directly against the skin. Some ice bags have a built-in cloth and can be put directly on the skin. WARM PACKS: After approximately two days, apply gentle heat (such as a heating pad or hot water bottle) for about 20 to 30 minutes about every two hours -- at least four times daily. Warmth and elevation will help you make a more rapid recovery, and will ease the pain considerably. Do not use HOT heat, and never apply heat for longer than 30 minutes. The continuous heat can invisibly damage skin and muscles -- even when no burn is seen on the surface. Damaged muscles can make you MORE sore. FOLLOW-UP CARE: If you have been referred to a physician for follow-up care, call the physicians office for an appointment as you were instructed or within the next two days. If you experience worsening or a significant change in your symptoms, notify the physician immediately or return to the Emergency Department at any time for re-evaluation. Forms: Smoking Cessation Education, Elevated Blood Pressure Referrals: DAVE CATHERINE MD [Primary Care Provider] - Follow up as needed [facility] [Provider Group] - Follow up as needed
== END 2020-03-04 11:00 | disposition home or self-care (01) ==
LOC: ER 10:22
DX: S46.911A Strain of unspecified muscle, fascia and tendon at shoulder and upper arm level, right arm, initial encounter (principal); X58.XXXA Exposure to other specified factors, initial encounter; M25.511 Pain in right shoulder; M79.603 Pain in arm, unspecified; M79.10 Myalgia, unspecified site; M54.9 Dorsalgia, unspecified; R58 Hemorrhage, not elsewhere classified; I10 Essential (primary) hypertension; I25.10 Atherosclerotic heart disease of native coronary artery without angina pectoris; I25.2 Old myocardial infarction; J45.909 Unspecified asthma, uncomplicated; Z85.46 Personal history of malignant neoplasm of prostate; Z88.8 Allergy status to other drugs, medicaments and biological substances
CPT/HCPCS: 99282

== ENCOUNTER 2020-05-19 20:36 | Emergency (ER) | payer BC ==
[2020-05-19 20:40] VITALS: BP 135/88
--- NOTE | 2020-05-19 20:40 | ER Document Report ---
ED Medical Screen (RME) - General Chief Complaint: Chest Pain > 30 Stated Complaint: CHEST PAIN Time Seen by Provider: 05/19/20 20:37 Primary Care Provider: DAVE CATHERINE MD [Primary Care Provider] - Follow up as needed Mode of Arrival: Wheelchair Information source: Patient Notes: 45-year-old male presented to ED for complaint of chest pain. He states he fee ls just like his last heart attack. He states he had his heart attack here recently. He states the pain is rated the center of his chest. He states he does not smoke drink or use any drugs. He is alert oriented he has a little quiet but very vocal. He states that he just feels the same as he did the last time. I have greeted and performed a rapid initial assessment of this patient. A c omprehensive ED assessment and evaluation of the patient, analysis of test results and completion of medical decision making process will be conducted by an additional ED providers. TRAVEL OUTSIDE OF THE [place] IN LAST 30 DAYS: No - Related Data Allergies/Adverse Reactions: hydralazine Allergy (Intermediate, Verified 04/13/19 12:41) Edema Past Medical History - Past Medical History Cardiac Medical History: Reports: Hx Coronary Artery Disease, Hx Heart Attack - 2010, Hx Hypercholesterolemia, Hx Hypertension Pulmonary Medical History: Reports: Hx Asthma Renal/ Medical History: Denies: Hx Peritoneal Dialysis Malignancy Medical History: Reports Hx Prostate Cancer Musculoskeltal Medical History: Reports Hx Arthritis, Reports Hx Musculoskeletal Deformity, Reports Hx Musculoskeletal Trauma Traumatic Medical History: Reports: Hx Fractures - Wrist Past Surgical History: Reports: Hx Cardiac Catheterization, Hx Orthopedic Surgery - RIGHT WRIST, Other - Robotic laparoscopic prostatectomy, 02/13/[address] Zaragoza - Immunizations Immunizations up to date: Yes Hx Diphtheria, Pertussis, Tetanus Vaccination: Yes Doctor's Discharge - Discharge Referrals: DAVE CATHERINE MD [Primary Care Provider] - Follow up as needed
[2020-05-19 21:20] LABS: ABSOLUTE BASOPHILS # (AUTO) 0.2 10^3/uL (0.0-0.2); ABSOLUTE EOSINOPHILS # (AUTO) 0.4 10^3/uL (0.0-0.6); ABSOLUTE LYMPHOCYTES (AUTO) 1.8 10^3/uL (0.5-4.7); ABSOLUTE MONOCYTES (AUTO) 0.6 10^3/uL (0.1-1.4); BASOPHILS % (AUTO) 2.2 % (0-2); EOSINOPHILS % (AUTO) 6.2 % (0-6); HEMATOCRIT 45.2 % (37.9-51.0); HEMOGLOBIN 15.1 g/dL (13.5-17.0); LYMPHOCYTES % (AUTO) 25.1 % (13-45); MEAN CORPUSCULAR HEMOGLOBIN 29.2 pg (27.0-33.4); MEAN CORPUSCULAR HGB CONC 33.5 g/dL (32.0-36.0); MEAN CORPUSCULAR VOLUME 87 fl (80-97); MONOCYTES % (AUTO) 9.2 % (3-13); PLATELET COUNT 249 10^3/uL (150-450); RED BLOOD COUNT 5.19 10^6/uL (4.35-5.55); RED CELL DISTRIBUTION WIDTH 14.2 % (11.5-14.0); SEGMENTED NEUTROPHILS % (AUTO) 57.3 % (42-78); TOTAL CELLS COUNTED % (AUTO) 100 %
[2020-05-19 21:28] LABS: INTERNATIONAL RATION (INR) 0.88; PROTHROMBIN TIME 12.2 SEC (11.4-15.4)
--- NOTE | 2020-05-19 21:28 | RADIOLOGY REPORT (SQ) ---
EXAM DESCRIPTION: XR CHEST 2 VIEWS COMPLETED DATE/TME: 05/19/2020 20:38 CLINICAL INDICATION: 45-year-old male with chest pain. TECHNIQUE: Two-view, PA and lateral projections of the chest were obtained. COMPARISON: 11/10/2018. FINDINGS: Unremarkable cardiac and mediastinal silhouette. Heart size is normal. Lungs are clear without focal opacity, pneumothorax or pleural effusions. The visualized bones are within normal limits. IMPRESSION: No acute cardiopulmonary abnormalities.
[2020-05-19 21:29] LABS: PARTIAL THROMBOPLASTIN TIME 25.8 SEC (23.5-35.8)
[2020-05-19 21:37] LABS: ALKALINE PHOSPHATASE 67 U/L (38-126); ANION GAP 7 (5-19); ASPARTATE AMINO TRANSFERASE 32 U/L (17-59); BILIRUBIN,DIRECT 0.2 mg/dL (0.0-0.4); BILIRUBIN,TOTAL 0.6 mg/dL (0.2-1.3); BLOOD UREA NITROGEN 15 mg/dL (7-20); CALCIUM 9.5 mg/dL (8.4-10.2); CARBON DIOXIDE 27 mmol/L (22-30); CHLORIDE 101 mmol/L (98-107); CREATINE KINASE 525 U/L (55-170); GLUCOSE 121 mg/dL (75-110); POTASSIUM 4.6 mmol/L (3.6-5.0); TOTAL PROTEIN 6.3 g/dL (6.3-8.2)
--- NOTE | 2020-05-20 17:06 | EKG REPORT ---
SEVERITY:- ABNORMAL ECG - SINUS RHYTHM FIRST DEGREE AV BLOCK : Confirmed by: Vivian Whelan MD 20-May-2020 17:05:54
== END 2020-05-19 23:56 | disposition left against medical advice (07) ==
LOC: ER 20:36
DX: R07.9 Chest pain, unspecified (principal); I25.10 Atherosclerotic heart disease of native coronary artery without angina pectoris; I10 Essential (primary) hypertension; I25.2 Old myocardial infarction; J45.909 Unspecified asthma, uncomplicated; Z85.46 Personal history of malignant neoplasm of prostate; Z88.8 Allergy status to other drugs, medicaments and biological substances; Z53.20 Procedure and treatment not carried out because of patient's decision for unspecified reasons
CPT/HCPCS: 36415; 71046; 80053; 82550; 83735; 84484; 85025; 85610; 85730; 93005; 93010; 99281

== ENCOUNTER → 2020-08-25 | Outpatient (CLI) | payer BC ==
[2020-08-25 16:58] LABS: ABSOLUTE EOSINOPHILS # (AUTO) 0.4 10^3/uL (0.0-0.6); ABSOLUTE MONOCYTES (AUTO) 0.6 10^3/uL (0.1-1.4); ABSOLUTE NEUT (AUTO) 3.7 10^3/uL (1.7-8.2); BASOPHILS % (AUTO) 0.6 % (0-2); EOSINOPHILS % (AUTO) 5.2 % (0-6); HEMATOCRIT 44.5 % (37.9-51.0); HEMOGLOBIN 14.8 g/dL (13.5-17.0); LYMPHOCYTES % (AUTO) 30.3 % (13-45); MEAN CORPUSCULAR HGB CONC 33.3 g/dL (32.0-36.0); MEAN CORPUSCULAR VOLUME 87 fl (80-97); MONOCYTES % (AUTO) 8.2 % (3-13); PLATELET COUNT 257 10^3/uL (150-450); RED CELL DISTRIBUTION WIDTH 13.4 % (11.5-14.0); SEGMENTED NEUTROPHILS % (AUTO) 55.7 % (42-78); TOTAL CELLS COUNTED % (AUTO) 100 %; WHITE BLOOD COUNT 6.7 10^3/uL (4.0-10.5)
[2020-08-25 17:21] LABS: ANION GAP 7 (5-19); BLOOD UREA NITROGEN 10 mg/dL (7-20); CALCIUM 9.9 mg/dL (8.4-10.2); CARBON DIOXIDE 28 mmol/L (22-30); CHLORIDE 101 mmol/L (98-107); GLUCOSE 76 mg/dL (75-110); POTASSIUM 4.3 mmol/L (3.6-5.0)
== END ==
LOC: OD 16:18
PROVIDERS: ATTEND Internal Medicine Nephrology
DX: I12.9 Hypertensive chronic kidney disease with stage 1 through stage 4 chronic kidney disease, or unspecified chronic kidney disease (principal); N18.9 Chronic kidney disease, unspecified; D64.9 Anemia, unspecified
CPT/HCPCS: 36415; 80048; 85025